=== PATIENT | female | born 1940 | race Caucasian/White ===

== ENCOUNTER 2016-12-04 09:28 | Emergency (ER) | payer MEDICARE, MEDICAID ==
[~2016-12-04] VITALS: Ht 152.4 cm; Wt 55.8 kg
[~2016-12-04 09:28] MED LIST: ADVAIR 250/5028 PUFF IN; AMITRIPTYLINE 225 MG PO; ASPIRIN 81MG TA81 MG PO; ATIVAN GENERIC0.5 MG PO; ATORVASTATIN CA20 M1 PO; CEFDINIR300 MG PO; CIPRO 500MG TA500 MG PO; HYDROCHLOROTH12.5 M1 PO; LEVOTHYROXIN0.075 M1 PO; MEDROL 4MG. DOSE4 MG PO; OMNICEF 300 MG300 MG PO; OXAZEPAM 15MG C15 M1; PREDNISONE 20MG20 MG PO; Zithromax500 MG PO
[2016-12-04] MEDS ORDERED: BISOPROLOL 5MG T5 MG PO (09:37)
[2016-12-04 09:41] LABS: HEMOGLOBIN 13.7 g/dL (12.2-16.2); LYMPH # 2.2 K/mm3 (0.7-4.5); LYMPH % 29.1 % (10-50.0)
--- NOTE | 2016-12-04 10:06 | Emergency Room Report ---
History of Present Illness Time Seen by 09Mynor Presenting Problem in Triage Pt arrived:Walked Presenting Problem:PT REPORTS PAIN UNDER L BREAST THAT BEGAN YESTERDAY, PT STATES PAIN FEELING "SHARP" IN NATURE, PT STATES PAIN RADIATES THROUGH TO BACK. 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 N Clinical Suspician of Infection? N Mental Status: 1 - Regular (Normal Baseline) Sepsis Risk:Low Sepsis Risk Have you (or family members/close friends) recently traveled outside the [place]? N If Yes, where/when: Have you had exposure to infectious disease within the past month? N TB? Other? Specify: Source patient, RN notes reviewed Exam Limitations no limitations Comment Pain under left breast since yesterday while at the [facility]. No trouble breathing and no pain with exertion and no fever or cough Cardiac Chest Pain Chest pain indicative of cardiac No ALLERGIES Coded Allergies: Penicillins (Mild, 04/26/16) oxycodone (Mild, 04/26/16) Home Medications Reported Medications Levothyroxine Sodium (Levothyroxine 0.075MG) 0.05 MG PO DAILY Amitriptyline Hcl (Amitriptyline) 50 MG PO QHS PRN SLEEP FLUTICASONE/SALMETEROL (Advair 250-50 Diskus) 1 PUFF IN BID #60 Hydrochlorothiazide (Hydrochlorothiazide 12.5MG) 12.5 MG PO DAILY #30 Lorazepam (Ativan) 0.5 MG PO BIDP PRN ANXIETY #60 Atorvastatin Calcium 20 MG PO DAILY #30 ASPIRIN (Aspirin) 81 MG PO DAILY BISOPROLOL FUMARATE (Bisoprolol 5MG) 2.5 MG PO DAILY #15 History Medical History General CAD? No Angina: No MS: No Hypertension? Yes Hyperlipidemia? Yes CHF? No DVT? No PE? No COPD? Yes Asthma? No Anemia? No GERD? No Gastric ulcers? No GI Bleed? No Hernia? No Thyroid Problems? No Hypothyroidism? No CVA? Yes Seizures? No Diabetes? No Renal Insuffiency? No End Stage Renal Disease? No UTI? No Stones? No BPH? No GB Disease: No Nephritic Syndrome? No Asplenia? No Hepatitis? No Sickle Cell Disease? No Arthritis? No Migraines? No Cataracts? No Glaucoma? No MRSA? No HIV? No TB? No Anxiety? No Depression? 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 No Results/Orders Laboratory Tests 12/04/16 0943: B-Natriuretic Peptide 19 12/04/16 0930: Sodium 139, Potassium 4.1, Chloride 104, Carbon Dioxide 31, BUN 8, Creatinine 0.8, Estimated Creat Clear 54, Estimated GFR (MDRD) 70, Glucose 97, Calcium 9.2, Total Bilirubin 0.3, AST 19, ALT 22, Alkaline Phosphatase 114, Creatine Kinase 84, CK-MB (CK-2) Rel Index 1.1, CK and CKMB Interp 0.9, Troponin I < 0.02, Total Protein 7.2, Albumin 3.2 L, Globulin 4.0 H, Albumin/Globulin Ratio 0.8 L, D- Dimer 1220 *H, WBC 7.7, RBC 4.48, Hgb 13.7, Hct 40.3, MCV 90.0, RDW 13.1, Plt Count 346, MPV 5.7 L, Gran % 61.3, Gran # 4.7, Lymphocytes % 29.1, Monocytes % 4.5, Eosinophils % 4.5, Basophils % 0.6, Lymphocytes # 2.2, Monocytes # 0.4, Eosinophils # 0.4, Basophils # 0.1, PUBS MCHC 34.0, MCH 30.6 Current Medication Orders Sig/Dynaa Start time Last Medication Dose Route Stop Time Status Admin Enoxaparin Sodium 60 MG ONCE ONE 12/04 1145 AC SC 12/04 1146 Aspirin 0 .STK-MED ONE 12/04 941 DC .ROUTE Aspirin 243 MG ONCE ONE 12/04 0930 DC 12/04 PO 12/04 930 0942 Sodium Chloride 10 ML PRN PRN 12/04 929 AC IV 12/06 927 Orders Procedure Date/time Status D-DIMER 12/04 102 Complete BRAIN NATRIURETIC PEPTIDE 12/04 102 Complete ELECTROCARDIOGRAM REQUEST 12/04 928 Active CHEST(2 VIEWS-NOT PORTABLE) 12/04 928 Active IV SALINE LOCK 12/04 928 Active CBC WITH AUTO DIFF 12/04 928 Complete CARDIAC ENZYMES 12/04 928 Complete CHEM 12 PROFILE 12/04 928 Complete Departure Departure Time of Disposition 1128 Disposition DC/XFER from ER to [facility] Clinical Impression Primary Impression: Pleuritic chest pain Secondary Impressions: COPD (chronic obstructive pulmonary disease) Qualifiers: COPD type: unspecified COPD Qualified Code: J44.9 - Chronic obstructive pulmonary disease, unspecified Dyspnea Qualifiers: Dyspnea type: shortness of breath Qualified Code: R06.02 - Shortness of breath Condition STABLE Referrals Marek GAGE,Jc Hernandez (Family) Additional Instructions Discussed with the ER, Dr. Farooq . He will accept in transfer to rule out PE as we do not have CT availaability today. Discharge Counseling Counseled pt/family regarding diagnosis, test results, follow up needs ED Critical Care Critical Care No If Critical Care minutes are documented, the time involved in the performance of seperately reportable procedures was not counted toward critical care time documented. I directly delivered medical care to this critically ill and/or injured patient. Timely evaluation and treatment was necessary to address the significant organ system(s) dysfunction present in this patient. at 1143
--- NOTE | 2016-12-04 10:06 | Emergency Room Report ---
History of Present Illness Time Seen by 09Mynor Presenting Problem in Triage Pt arrived:Walked Presenting Problem:PT REPORTS PAIN UNDER L BREAST THAT BEGAN YESTERDAY, PT STATES PAIN FEELING "SHARP" IN NATURE, PT STATES PAIN RADIATES THROUGH TO BACK. 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 N Clinical Suspician of Infection? N Mental Status: 1 - Regular (Normal Baseline) Sepsis Risk:Low Sepsis Risk Have you (or family members/close friends) recently traveled outside the [place]? N If Yes, where/when: Have you had exposure to infectious disease within the past month? N TB? Other? Specify: Source patient, RN notes reviewed Exam Limitations no limitations Comment Pain under left breast since yesterday while at the [facility]. No trouble breathing and no pain with exertion and no fever or cough Cardiac Chest Pain Chest pain indicative of cardiac No ALLERGIES Coded Allergies: Penicillins (Mild, 04/26/16) oxycodone (Mild, 04/26/16) Home Medications Reported Medications Levothyroxine Sodium (Levothyroxine 0.075MG) 0.05 MG PO DAILY Amitriptyline Hcl (Amitriptyline) 50 MG PO QHS PRN SLEEP FLUTICASONE/SALMETEROL (Advair 250-50 Diskus) 1 PUFF IN BID #60 Hydrochlorothiazide (Hydrochlorothiazide 12.5MG) 12.5 MG PO DAILY #30 Lorazepam (Ativan) 0.5 MG PO BIDP PRN ANXIETY #60 Atorvastatin Calcium 20 MG PO DAILY #30 ASPIRIN (Aspirin) 81 MG PO DAILY BISOPROLOL FUMARATE (Bisoprolol 5MG) 2.5 MG PO DAILY #15 History Medical History General CAD? No Angina: No [place]: No Hypertension? Yes Hyperlipidemia? Yes CHF? No DVT? No PE? No COPD? Yes Asthma? No Anemia? No GERD? No Gastric ulcers? No GI Bleed? No Hernia? No Thyroid Problems? No Hypothyroidism? No CVA? Yes Seizures? No Diabetes? No Renal Insuffiency? No End Stage Renal Disease? No UTI? No Stones? No BPH? No GB Disease: No Nephritic Syndrome? No Asplenia? No Hepatitis? No Sickle Cell Disease? No Arthritis? No Migraines? No Cataracts? No Glaucoma? No MRSA? No HIV? No TB? No Anxiety? No Depression? 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 No Results/Orders Laboratory Tests 12/04/16 0943: B-Natriuretic Peptide 19 12/04/16 0930: Sodium 139, Potassium 4.1, Chloride 104, Carbon Dioxide 31, BUN 8, Creatinine 0.8, Estimated Creat Clear 54, Estimated GFR (MDRD) 70, Glucose 97, Calcium 9.2, Total Bilirubin 0.3, AST 19, ALT 22, Alkaline Phosphatase 114, Creatine Kinase 84, CK-MB (CK-2) Rel Index 1.1, CK and CKMB Interp 0.9, Troponin I < 0.02, Total Protein 7.2, Albumin 3.2 L, Globulin 4.0 H, Albumin/Globulin Ratio 0.8 L, D- Dimer 1220 *H, WBC 7.7, RBC 4.48, Hgb 13.7, Hct 40.3, MCV 90.0, RDW 13.1, Plt Count 346, MPV 5.7 L, Gran % 61.3, Gran # 4.7, Lymphocytes % 29.1, Monocytes % 4.5, Eosinophils % 4.5, Basophils % 0.6, Lymphocytes # 2.2, Monocytes # 0.4, Eosinophils # 0.4, Basophils # 0.1, PUBS MCHC 34.0, MCH 30.6 Current Medication Orders Sig/Dyana Start time Last Medication Dose Route Stop Time Status Admin Enoxaparin Sodium 60 MG ONCE ONE 12/04 1145 AC SC 12/04 1146 Aspirin 0 .STK-MED ONE 12/04 941 DC .ROUTE Aspirin 243 MG ONCE ONE 12/04 0930 DC 12/04 PO 12/04 930 0942 Sodium Chloride 10 ML PRN PRN 12/04 929 AC IV 12/06 927 Orders Procedure Date/time Status D-DIMER 12/04 102 Complete BRAIN NATRIURETIC PEPTIDE 12/04 102 Complete ELECTROCARDIOGRAM REQUEST 12/04 928 Active CHEST(2 VIEWS-NOT PORTABLE) 12/04 928 Active IV SALINE LOCK 12/04 928 Active CBC WITH AUTO DIFF 12/04 928 Complete CARDIAC ENZYMES 12/04 928 Complete CHEM 12 PROFILE 12/04 928 Complete Departure Departure Time of Disposition 1128 Disposition DC/XFER from ER to [facility] Clinical Impression Primary Impression: Pleuritic chest pain Secondary Impressions: COPD (chronic obstructive pulmonary disease) Qualifiers: COPD type: unspecified COPD Qualified Code: J44.9 - Chronic obstructive pulmonary disease, unspecified Dyspnea Qualifiers: Dyspnea type: shortness of breath Qualified Code: R06.02 - Shortness of breath Condition STABLE Referrals Marek GAGE,Jc Hernandez (Family) Additional Instructions Discussed with the ER, Dr. Farooq . He will accept in transfer to rule out PE as we do not have CT availaability today. Discharge Counseling Counseled pt/family regarding diagnosis, test results, follow up needs ED Critical Care Critical Care No If Critical Care minutes are documented, the time involved in the performance of seperately reportable procedures was not counted toward critical care time documented. I directly delivered medical care to this critically ill and/or injured patient. Timely evaluation and treatment was necessary to address the significant organ system(s) dysfunction present in this patient. at 1143
[2016-12-04 10:10] LABS: BUN 8 mg/dL (7-18)
[2016-12-04 10:11] LABS: GFR (ESTIMATED) 70 ML/MIN (59-)
[2016-12-04 12:52] VITALS: BP 179/62
--- NOTE | 2016-12-04 14:01 | RADIOLOGY REPORT PS360 ---
CHEST(2 VIEWS-NOT PORTABLE) Ordering Physician: Elgin Lerma MD Patient Age: 76 years: Female HISTORY: CHEST PAIN left chest pain since yesterday. Occasional short of breath. TECHNIQUE: PA and lateral chest COMPARISON is made to previous chest film May. FINDINGS :. COPD. Right lung There is subtle ~2 cm new area of density right midlung, just lateral to the right infrahilar region, & projected over the anterior right fifth rib end . (& Posterior eighth rib). With this observation, along with patient's elevated d-dimer 1220, a CTA chest would be warranted to further evaluate. I see patient was transferred [facility] for such since [facility] CT s is down & not available today Again note slight blunting the posterior sulcus on lateral view. Unchanged & reflecting mild chronic pleural changes . Calcified granuloma at medial right lung base stable . Left lung hyperexpanded and clear with stable linear atelectasis towards left base. Heart and mediastinal structures stable. No hilar lesions. IMPRESSION . Vague 2 cm a density just lateral to the right inferior hilar region. Could reflect focal pneumonia . However noting elevated d-dimer along with this feature a CTA chest with be warranted. Patient was transferred for such since [facility] CT s is down & not available today
--- NOTE | 2016-12-04 14:01 | RADIOLOGY REPORT PS360 ---
CHEST(2 VIEWS-NOT PORTABLE) Ordering Physician: Elgin Lerma MD Patient Age: 76 years: Female HISTORY: CHEST PAIN left chest pain since yesterday. Occasional short of breath. TECHNIQUE: PA and lateral chest COMPARISON is made to previous chest film May. FINDINGS :. COPD. Right lung There is subtle ~2 cm new area of density right midlung, just lateral to the right infrahilar region, & projected over the anterior right fifth rib end . (& Posterior eighth rib). With this observation, along with patient's elevated d-dimer 1220, a CTA chest would be warranted to further evaluate. I see patient was transferred [facility] for such since [facility] CT s is down & not available today Again note slight blunting the posterior sulcus on lateral view. Unchanged & reflecting mild chronic pleural changes . Calcified granuloma at medial right lung base stable . Left lung hyperexpanded and clear with stable linear atelectasis towards left base. Heart and mediastinal structures stable. No hilar lesions. IMPRESSION . Vague 2 cm a density just lateral to the right inferior hilar region. Could reflect focal pneumonia . However noting elevated d-dimer along with this feature a CTA chest with be warranted. Patient was transferred for such since [facility] CT s is down & not available today
--- OUTSIDE RECORDS SUMMARY | 2016-12-05 22:21 | External Medical Summary Rpt ---
Author Author , Organization [employer] Address Unknown Phone Unavailable Care Team Providers Care Staff Auditor Name Role Phone [facility] Unavailable Unavailable INC, [facility] BEINEKE SANTI, BEINEKE Unavailable Unavailable SANTI RIVERO ALL, RIVERO ALL Unavailable [facility]available [facility] Unavailable Unavailable [facility], [facility] Unavailable Unavailable [facility] Unavailable Unavailable [facility], [facility] Unavailable Unavailable [facility], [facility] Unavailable Unavailable LAB, [facility] KAILASH TRAVIS, Unavailable Unavailable KAILASH TRAVIS KAILASHLUCIUS ZHANGLAS, Unavailable Unavailable KAILASH, FIDENCIO CAMILO MELBA, CAMILO MELBA Unavailable Unavailable [facility] Unavailable Unavailable [place], [facility] [place] [facility] [place] Un[place] [facility] ECKERLINE JR HANANE, Unavailable Unavailable ECKERLINE JR HANANE ESCOTT EDW, ESCOTT Unavailable Unavailable EDW AMINAH TRUONG, Unavailable Unavailable AMINAH TRUONG [facility] Unavailable Unavailable INC, [facility] Unavailable Unavailable [facility]PITAL P, [facility] BENNETT AMY, BENNETT AMY Unavailable Unavailable BENNETT AMY, BENNETT AMY Unavailable Unavailable [facility], Unavailable Unavailable [facility] Unavailable Unavailable [facility], [facility] Unavailable Unavailable [facility], [facility], [facility] Unavailable Unavailable [facility] CHÁVEZ MARIELLA, CHÁVEZ MARIELLA Unavailable Unavailable DEXTER DWI, DEXTER DWI Unavailable Unavailable DEXTER DWI, DEXTER DWI Unavailable Unavailable DEXTER MARIE, DEXTER Unavailable Unavailable MARIE DEXTER JR DWI, DEXTER Unavailable Unavailable JR DWI DEXTER JR DWI, DEXTER Unavailable Unavailable JR DWI DEXTER, MARIE E, Unavailable Unavailable DEXTER, MARIE E MCKEMIE JR REYNA, Unavailable Unavailable MCKEMIE JR REYNA NICKELS TREY, NICKELS Unavailable Unavailable [facility]AL [facility], Unavailable Unavailable [facility] RASLAU FLA, RASLAU Unavailable Unavailable FLA DIMA CAR, Unavailable Unavailable [facility] Unavailable [facility], [facility] Unavailable Un[facility], [facility] Unavailable Unavailable [facility], [facility] Unavailable Unavailable [facility], [facility] JOSE BREAUX, Unavailable Unavailable JOSE BREAUX [facility], Unavailable Unavailable [facility] Unavailable Unavailable [facility], Unavailable Unavailable [facility] Purpose Continuity of Care Document - 09-15-2007 through 2016 Problems Code Diagnosis DOS Provider Status J449 CHRONIC 09-13-2016 [facility] [place] OBSTRU[facility]IVE [place] PULMONARY MEDICAL DISEASE UNS EQUIPME E039 HYPOTHYROID 05-25-2016 [facility] P I10 ESSENTIAL 05-25-2016 [facility]YPERT[facility]O [facility] N R079 CHEST PAIN 05-25-2016 [facility] UNSPECIFIED [facility]ICAL IM[facility]ING ASS [id number] LACERATION 04-26-2016 [facility] BODY RT INC FOREARM INITIAL [id number] APHASIA 01-23-2016 [facility] CEREBRAL INFARCTION [id number] DYSPHASIA 01-23-2016 [facility] CEREBRAL INFARCTION R201 HYPOESTHESI 01-23-2016 [facility] Z09 ENC F/U 01-23-2016 [facility] CMPL TX OTH THAN MALIG NEOPLSM [id number] CELLULITIS 12-24-2015 [facility] I361 NONRHEUMATI 12-16-2015 [facility] TRICUSPID SERV [facility]VE [facility] INSUFFICIEN CY R1310 DYSPHAGIA 12-16-2015 [facility] G8191 HEMIPLEGIA 12-15-2015 [facility] AMBULANCE AFFECTING SERVICE RIGHT DOMINANT SIDE I493 VENTRICULAR 12-15-2015 [facility] PREMATURE [facility] DEPOLARIZAT [facility]OUNDATION ION [id number] CEREBRAL 12-15-2015 [facility] IN[facility]ARCT D/T SERV THROMB LT [facility]OUNDATION MID CEREBRAL ART I639 CEREBRAL 12-15-2015 [facility] INFARCTION SERV UNSPECIFIED FOUNDATION 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 [facility] AND 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 OCCLUSION & 12-15-2015 [facility] ST[facility] SERV UNSPECIFIED FOUNDATION CAROTID ARTERY I6602 OCCLUSION & 12-15-2015 [place] [facility] LEFT MIDDLE [facility] CEREBRAL ARTERY I671 CEREBRAL 12-15-2015 [place] [facility] ANEURYSM SERV NONRUPTURED [facility] I6931 COGNITIVE 12-15-2015 [facility] DEF[facility]ITS [facility] FOLLOWING SERVICE CEREBRAL INFARCTION J349 UNSPECIFIED 12-15-2015 [facility] DISORDER SERV OF NOSE AND FOUNDATION NASAL SINUSES R200 ANESTHESIA 12-15-2015 [facility] OF SKIN MEDICAL IMAGING ASS [id number] FACIAL 12-15-2015 [facility] R4701 APHASIA 12-15-2015 [facility] R479 UNSPECIFIED 12-15-2015 [facility] SPEECH SERV DISTURBANCE [facility] S R531 WEAKNESS 12-15-2015 [facility] Z720 TOBACCO USE 12-15-2015 [facility] J209 ACUTE 08-11-2015 [facility] BRONCHITIS MARIE UNSPECIFIED Z6822 BODY MASS 08-11-2015 [facility] INDEX BMI MARIE 22.0-22.9 ADULT J441 CHRONIC 07-25-2015 [facility] OBSTRUCTIVE MARIE PULMONARY DZ W/EXACERBAT ION J440 COPD WITH 07-21-2015 [facility] RESPIRATORY INFECTION R05 COUGH 07-21-2015 [facility] [id number] UNS FX 05-27-2015 [facility] LOWER RT MEDICAL RADIUS IMAGING ASS SUBSQT ENC CLOS FX RTN [id number] OTH 05-27-2015 [facility]TRAARTIC [facility] FX LOW RT INC RADIUS SUB CLOS RTN E785 HYPERLIPIDE 05-19-2015 [facility] SUINTA MARIE UNSPECIFIED G609 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 NEUROPATHY UNSPECIFIED I2781 COR 05-19-2015 [facility] PULMONALE MARIE CHRONIC Z23 ENCOUNTER 05-19-2015 [facility] FOR MARIE IMMUNIZATIO N Z6823 BODY MASS 05-19-2015 [facility] INDEX BMI MARIE 23.0-23.9 ADULT V5412 AFTERCARE 04-25-2015 [facility] TRAUMATIC INC FRACTURE LOWER ARM V5419 AFTERCARE 04-25-2015 [facility] TRAUMATIC IMAGING [facility] FRACTURE OTHER BONE 4660 ACUTE 04-18-2015 [facility] BRONCHITIS MARIE 73587 OBSTRUCTIVE 04-18-2015 [facility] CHRONIC MARIE BRONCHITIS WITH EXACERBATIO N 69765 FEVER 04-18-2015 [facility] UNSPECIFIED MEDICAL IMAGING ASS V851 BODY MASS 04-18-2015 [facility] INDEX MARIE BETWEEN 19-24 ADULT 65604 PAIN IN 03-20-2015 [facility] JOINT, MEDICAL FOREARM IMAGING ASS 496 CHRONIC 01-17-2015 [facility] OBSTRUCTION MEDICAL NEC EQUIPME 4019 UNSPECIFIED 11-27-2014 [place] [facility] HYPERTENSIO [facility] N 91147 OTHER 11-27-2014 [place] [facility] SPECIF[facility] SERV CARDIAC [facility] DYSRHYTHMIA S 1844 MALIGNANT 10-25-2014 [facility] NEOPLASM OF [facility] VULVA UNSPECIFIED SITE 7213 LUMBOSACRAL 08-16-2014 [facility] SPONDYLOSIS IMAGING ASS WITHOUT MYELOPATHY 7242 LUMBAGO 08-16-2014 D[facility]TER MARIE 7384 ACQUIRED 08-16-2014 [facility] SPONDYLOLIS [facility]ICAL THESIS IMAGING ASS 8472 LUMBAR 08-16-2014 [facility] SPRAIN AND MARIE STRAIN V8522 BODY MASS 08-16-2014 [facility] INDEX MARIE 26.0-26.9 ADULT 4169 UNSPECIFIED 02-26-2014 D[facility]TER JR CHRONIC DWI PULMONARY HEART DISEASE 18215 HEMATOMA 10-31-2013 D[facility]TER JR COMPLICATIN DWI G A PROCEDURE NEC 460 ACUTE 07-10-2013 DEXTER JR NASOPHARYNG DWI ITIS 7823 EDEMA 01-26-2012 APRIL JR REYNA 2449 UNSPECIFIED 01-24-2012 D[facility] JR DWI HYPOTHYROID ISM 486 PNEUMONIA, 11-12-2011 [facility] UNSPECIFIED INC 83270 OTHER 11-12-2011 [facility] DISEASES OF MEDICAL LUNG NOT IMAGING ASS ELSEWHERE CLASSIFIED 5180 PULMONARY 2011 [facility] COLLAPSE [facility] 5183 PULMONARY 2011 [facility] EOSINOPHILI MEDICAL A IMAGING ASS 5110 PLEURISY 07-26-2011 [facility] WITHOUT [facility] MENTION INC EFFUS/CURRE NT TB V0481 NEED 04-20-2011 D[facility]TER DWI PROPHYLACTI C VACCINATION &INOCULATIO N FLU 52582 ABDOMINAL 12-19-2010 [facility] PAIN, MEDICAL UNSPECIFIED IMAGING ASS SITE 58791 OTHER 12-14-2010 D[facility]TER DWI CHRONIC OTITIS EXTERNA 2767 HYPERPOTASS 09-03-2010 [facility] INC 684 IMPETIGO 08-21-2010 D[facility] DWI 5990 URINARY 07-17-2010 [facility] DWI TRACT INFECTION SITE NOT SPECIFIED 69925 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 UNSPECIFIED 7840 HEADACHE 05-06-2010 [facility] 2724 OTHER AND 03-02-2010 D[facility] DWI UNSPECIFIED HYPERLIPIDE SUNITA 3569 UNSPEC 03-02-2010 D[facility] DWI HEREDIT&IDI OPATHIC PERIPHERAL NEUROPATHY 52810 OTHER 03-02-2010 D[facility] DWI SPECIFIED CIRCULATORY SYSTEM DISORDERS V5869 LONG-TERM 03-02-2010 [facility]CURRENT[facility] USE OF [place] OTHER MEDICATIONS 65329 CRAMP OF 02-24-2010 DEXTER, LIMB MARIE E 55176 SHORTNESS 11-21-2009 [facility] 99873 OTHER 11-21-2009 [facility] DYSPNEA AND [facility] [place] [address] ACUT 10-03-2009 DEXTER, SUPPRATV MARIE E OTITIS MEDIA W/O SPONT RUP EARDRUM 4610 ACUTE 10-03-2009 DEXTER, MAXILLARY MARIE E SINUSITIS 6961 OTHER 12-24-2008 [facility] DISORDERS 6983 LICHENIFICA 12-24-2008 [facility] PSC SIMPLEX CHRONICUS 6272 SYMPTOMATIC 10-29-2008 DEXTER, MARIE E MENOPAUSAL/ FEMALE CLIMACTERIC STATES V1589 OTH SPEC 10-29-2008 [facility] P[facility] HX [facility] PRESENTING INC HAZARDS HEALTH OTH V762 SCREENING 10-29-2008 [facility] FOR [facility] MALIGNANT INC NEOPLASM OF THE CERVIX V812 SCREENING 10-29-2008 DEXTER, OTHER&UNSPE MARIE E C CARDIOVASCU LAR CONDITIONS 16994 UNSPECIFIED 10-01-2008 DEXTER, INFECTIVE MARIE E OTITIS EXTERNA 7856 ENLARGEMENT 07-17-2008 DEXTER, OF LYMPH MARIE E NODES 46681 UNSPECIFIED 03-01-2008 DEXTER, GANGLION MARIE E J44.9 CHRONIC OBSTRUCTIVE PULMONARY DISEASE, UNSPECIFIED R06.00 DYSPNEA, UNSPECIFIED R07.81 PLEURODYNIA Medications Na ND Rx Da Fi Fi Am Da Di Ph RX Ph St me C No te ll ll ou ys ag ar # ys at rm s nt no ma ic us Or Da si cy ia de te s n re d OX 00 05 10 5 12 30 EA 22 LE Ac [place] 78 -0 -[address] 45 WI ti EP 12 9- 8- 00 SI 54 S ve AM 81 20 20 0 DE JR 00 11 11 15 1 PH DW AR IG MG MA HT CY E CA PS OF UL E CY NT HI AN A OX 00 05 09 5 12 30 EA 22 LE Ac [place] 78 -0 -[address] 45 WI ti EP 12 9- 6- 00 SI 54 S ve AM 81 20 20 0 DE JR 00 11 11 15 1 PH DW AR IG MG MA HT CY E CA PS OF UL E CY NT HI AN A OX 00 05 08 5 12 30 EA 22 LE Ac [place] 78 -0 -[address] 45 WI ti EP 12 9- 4- 00 SI 54 S ve AM 81 20 20 0 DE JR 00 11 11 15 1 PH DW AR IG MG MA HT CY E CA PS OF UL E CY NT HI AN A OX 00 05 07 5 12 30 EA 22 LE Ac [place] 78 -0 -[address] 45 WI ti EP 12 9- 2- 00 SI 54 S ve AM 81 20 20 0 DE JR 00 11 11 15 1 PH DW AR IG MG MA HT CY E CA PS OF UL E CY NT HI AN A OX 00 05 06 5 12 30 EA 22 LE Ac [place] 78 -0 -[address] 45 WI ti EP 12 9- 0- 00 SI 54 S ve AM 81 20 20 0 DE JR 00 11 11 15 1 PH DW AR IG MG MA HT CY E CA PS OF UL E CY NT HI AN A OX 00 05 05 5 12 30 EA 22 LE Ac [place] 78 -0 -[address] 45 WI ti EP 12 9- 9- 00 SI 54 S ve AM 81 20 20 0 DE JR 00 11 11 15 1 PH DW AR IG MG MA HT CY E CA PS OF UL E CY NT HI AN A OX 00 02 05 5 60 15 EA 21 LE Ac [place] 78 -0 -[address] 10 WI ti EP 12 4- 2- 00 SI 01 S ve AM 81 20 20 DE JR 00 11 11 15 1 PH DW AR IG MG MA HT CY E CA PS OF UL E CY NT HI AN A OX 00 02 04 5 60 15 EA 21 LE Ac [place] 78 -0 -[address] 10 WI ti EP 12 4- 4- 00 SI 01 S ve AM 81 20 20 DE JR 00 11 11 15 1 PH DW AR IG MG MA HT CY E CA PS OF UL E CY NT HI AN A OX 00 02 03 5 60 15 EA 21 LE Ac [place] 78 -0 -[address] 10 WI ti EP 12 4- 8- 00 SI 01 S ve AM 81 20 20 DE JR 00 11 11 15 1 PH DW AR IG MG MA HT CY E CA PS OF UL E CY NT HI AN A OX 00 02 03 5 60 15 EA 21 LE Ac [place] 78 -0 -[address] 10 WI ti EP 12 4- 0- 00 SI 01 S ve AM 81 20 20 DE JR 00 11 11 15 1 PH DW AR IG MG MA HT CY E CA PS OF UL E CY NT HI AN A OX 00 02 02 5 60 15 EA 21 LE Ac [place] 78 -0 -[address] 10 WI ti EP 12 SI 01 S ve AM 81 20 20 DE JR 00 11 11 15 1 PH DW AR IG MG MA HT CY E CA PS OF UL E CY NT HI AN A OX 00 02 02 5 60 15 EA 21 LE Ac [place] 78 -0 -[address] 10 WI ti EP 12 SI 01 S ve AM 81 20 20 DE JR 00 11 11 15 1 PH DW AR IG MG MA HT CY E CA PS OF UL E CY NT HI AN A OX 00 10 01 5 60 15 EA 19 LE Ac [place] 78 -1 -[address] 59 WI ti EP 12 SI 70 S ve AM 81 20 20 DE JR 00 10 11 15 1 [address] DW AR IG MG MA HT CY E CA PS OF UL E CY NT HI AN A OX 00 10 12 5 60 15 EA 19 LE Ac [place] 78 -1 -[address] 59 WI ti EP 12 SI 70 S ve AM 81 20 20 DE JR 00 10 10 15 [address] AR IG MG MA HT CY E CA PS OF UL E CY NT HI AN A OX 00 10 12 5 60 15 EA 19 LE Ac [place] 78 -1 -[address] 59 WI ti EP 12 SI 70 S ve AM 81 20 20 DE JR 00 10 10 15 1 PH DW AR IG MG MA HT CY E CA PS OF UL E CY NT HI AN A OX 00 10 11 5 60 15 EA 19 LE Ac [place] 78 -1 -[address] 59 WI ti EP 12 SI 70 S ve AM 81 20 20 DE JR 00 10 10 15 1 PH DW AR IG MG MA HT CY E CA PS OF UL E CY NT HI AN A OX 00 10 11 5 60 15 EA 19 LE Ac [place] 78 -1 -[address] 59 WI ti EP 12 9- 0- 00 SI 70 S ve AM 81 20 20 DE JR 00 10 10 15 1 PH DW AR IG MG MA HT CY E CA PS OF UL E CY NT HI AN A OX 00 10 10 5 60 15 EA 19 LE Ac [place] 78 -1 -[address] 59 WI ti EP 12 9- 9- 00 SI 70 S ve AM 81 20 20 DE JR 00 10 10 15 1 PH DW AR IG MG MA HT CY E CA PS OF UL E CY NT HI AN A OX 00 07 09 5 60 15 EA 18 LE Ac [place] 78 -0 -[address] 23 WI ti EP 12 6- 0- 00 SI 27 S ve AM 81 20 20 DE JR 00 10 10 15 1 PH DW AR IG MG MA HT CY E CA PS OF UL E CY NT HI AN A OX 00 07 09 5 60 15 EA 18 LE Ac [place] 78 -0 -[address] 23 WI ti EP 12 6- 4- 00 SI 27 S ve AM 81 20 20 DE JR 00 10 10 15 1 PH DW AR IG MG MA HT CY E CA PS OF UL E CY NT HI AN A OX 00 07 08 5 60 15 EA 18 LE Ac [place] 78 -0 -[address] 23 WI ti EP 12 6- 6- 00 SI 27 S ve AM 81 20 20 DE JR 00 10 10 15 1 PH DW AR IG MG MA HT CY E CA PS OF UL E CY NT HI AN A OX 00 07 08 5 60 15 EA 18 LE Ac [place] 78 -0 -[address] 23 WI ti EP 12 6- 0- 00 SI 27 S ve AM 81 20 20 DE JR 00 10 10 15 1 PH DW AR IG MG MA HT CY E CA PS OF UL E CY NT HI AN A OX 00 07 07 5 60 15 EA 18 LE Ac [place] 78 -0 -[address] 23 WI ti EP 12 6- 4- 00 SI 27 S ve AM 81 20 20 DE JR 00 10 10 15 1 PH DW AR IG MG MA HT CY E CA PS OF UL E CY NT HI AN A OX 00 07 07 5 60 15 EA 18 LE Ac [place] 78 -0 -[address] 23 WI ti EP 12 6- 6- 00 SI 27 S ve AM 81 20 20 DE JR 00 10 10 15 1 PH DW AR IG MG MA HT CY E CA PS OF UL E CY NT HI AN A OX 00 03 06 5 60 15 EA 16 LE Ac [place] 78 -1 -[address] 78 WI ti EP 12 5- 7- 00 SI 09 S ve AM 81 20 20 DE JR 00 10 10 15 1 PH DW AR IG MG MA HT CY E CA PS OF UL E CY NT HI AN A OX 00 03 06 5 60 15 EA 16 LE Ac [place] 78 -1 -[address] 78 WI ti EP 12 5- 2- 00 SI 09 S ve AM 81 20 20 DE JR 00 10 10 15 1 PH DW AR IG MG MA HT CY E CA PS OF UL E CY NT HI AN A OX 00 03 05 5 60 15 EA 16 LE Ac [place] 78 -1 -[address] 78 WI ti EP 12 5- 3- 00 SI 09 S ve AM 81 20 20 DE JR 00 10 10 15 1 PH DW AR IG MG MA HT CY E CA PS OF UL E CY NT HI AN A OX 00 03 04 5 60 15 EA 16 LE Ac [place] 78 -1 -[address] 78 WI ti EP 12 5- 7- 00 SI 09 S ve AM 81 20 20 DE JR 00 10 10 15 1 PH DW AR IG MG MA HT CY E CA PS OF UL E CY NT HI AN A OX 00 03 04 5 60 15 EA 16 LE Ac [place] 78 -1 -[address] 78 WI ti EP 12 5- 7- 00 SI 09 S ve AM 81 20 20 DE JR 00 10 10 15 1 PH DW AR IG MG MA HT CY E CA PS OF UL E CY NT HI AN A OX 00 03 03 5 60 15 EA 16 LE Ac [place] 78 -1 -[address] 78 WI ti EP 12 5- 5- 00 SI 09 S ve AM 81 20 20 DE JR 00 10 10 15 1 PH DW AR IG MG MA HT CY E CA PS OF UL E CY NT HI AN A OX 00 12 02 04 60 15 EA 15 LE Ac [place] 78 -0 -[address] 39 WI ti EP 12 2- 6- 00 SI 10 S ve AM 81 20 20 DE JR 00 09 10 15 1 PH DW AR IG MG MA HT CY E CA PS OF UL CY E NT HI AN A OX 00 12 02 03 60 15 EA 15 LE Ac [place] 78 -0 -[address] 39 WI ti EP 12 2- 1- 00 SI 10 S ve AM 81 20 20 DE JR 00 09 10 15 1 PH DW AR IG MG MA HT CY E CA PS OF UL CY E NT HI AN A OX 00 12 01 02 60 15 EA 15 LE Ac [place] 78 -0 -[address] 39 WI ti EP 12 2- 4- 00 SI 10 S ve AM 81 20 20 DE JR 00 09 10 15 1 PH DW AR IG MG MA HT CY E CA PS OF UL CY E NT HI AN A OX 00 12 12 01 60 15 EA 15 LE Ac [place] 78 -0 -[address] 39 WI ti EP 12 2- 1- 00 SI 10 S ve AM 81 20 20 DE JR 00 09 09 15 1 PH DW AR IG MG MA HT CY E CA PS OF UL CY E NT HI AN A OX 00 12 12 00 60 15 EA 15 LE Ac [place] 78 -0 -[address] 39 WI ti EP 12 2- 7- 00 SI 10 S ve AM 81 20 20 DE JR 00 09 09 15 1 PH DW AR IG MG MA HT CY E CA PS OF UL CY E NT HI AN A OX 00 08 12 05 60 15 EA 13 LE Ac [place] 78 -1 -[address] 84 WI ti EP 12 4- 3- 00 SI 23 S ve AM 81 20 20 DE JR 00 09 09 15 1 PH DW AR IG MG MA HT CY E CA PS OF UL CY E NT HI AN A OX 00 08 11 04 60 15 EA 13 LE Ac [place] 78 -1 -[address] 84 WI ti EP 12 4- 5- 00 SI 23 S ve AM 81 20 20 DE JR 00 09 09 15 1 PH DW AR IG MG MA HT CY E CA PS OF UL CY E NT HI AN A OX 00 08 10 03 60 15 EA 13 LE Ac [place] 78 -1 -[address] 84 WI ti EP 12 4- 2- 00 SI 23 S ve AM 81 20 20 DE JR 00 09 09 15 1 PH DW AR IG MG MA HT CY E CA PS OF UL CY E NT HI AN A OX 00 08 10 02 60 15 EA 13 LE Ac [place] 78 -1 -[address] 84 WI ti EP 12 4- 8- 00 SI 23 S ve AM 81 20 20 DE JR 00 09 09 15 1 PH DW AR IG MG MA HT CY E CA PS OF UL CY E NT HI AN A HY 00 09 10 00 12 4 EA [address] 47 -2 -[address] 41 WI ti OM 21 5- 8- 00 SI 88 S ve ET 03 20 20 0 DE JR 01 09 09 SY 6 PH DW RU AR IG P MA HT CY E OF CY NT HI AN A OX 00 08 09 01 60 15 EA 13 LE Ac [place] 78 -1 -[address] 84 WI ti EP 12 4- 4- 00 SI 23 S ve AM 81 20 20 DE JR 00 09 09 15 1 PH DW AR IG MG MA HT CY E CA PS OF UL CY E NT HI AN A OX 00 08 08 00 60 15 EA 13 LE Ac [place] 78 -1 -[address] 84 WI ti EP 12 4- 7- 00 SI 23 S ve AM 81 20 20 DE JR 00 09 09 15 1 PH DW AR IG MG MA HT CY E CA PS OF UL CY E NT HI AN A OX 00 05 08 05 60 15 EA 12 LE Ac [place] 78 -0 -[address] 61 WI ti EP 12 5- 3- 00 SI 62 S ve AM 81 20 20 DE JR 00 09 09 15 1 PH DW AR IG MG MA HT CY E CA PS OF UL CY E NT HI AN A OX 00 05 07 04 60 15 EA 12 LE Ac [place] 78 -0 -[address] 61 WI ti EP 12 5- 0- 00 SI 62 S ve AM 81 20 20 DE JR 00 09 09 15 1 PH DW AR IG MG MA HT CY E CA PS OF UL CY E NT HI AN A OX 00 05 07 03 60 15 EA 12 LE Ac [place] 78 -0 -[address] 61 WI ti EP 12 5- 2- 00 SI 62 S ve AM 81 20 20 DE JR 00 09 09 15 1 PH DW AR IG MG MA HT CY E CA PS OF UL CY E NT HI AN A OX 00 05 06 02 60 15 EA 12 LE Ac [place] 78 -0 -[address] 61 WI ti EP 12 5- 8- 00 SI 62 S ve AM 81 20 20 DE JR 00 09 09 15 1 PH DW AR IG MG MA HT CY E CA PS OF UL CY E NT HI AN A OX 00 05 06 01 60 15 EA 12 LE Ac [place] 78 -0 -[address] 61 WI ti EP 12 5- 4- 00 SI 62 S ve AM 81 20 20 DE JR 00 09 09 15 1 PH DW AR IG MG MA HT CY E CA PS OF UL CY E NT HI AN A OX 00 05 05 00 60 15 EA 12 LE Ac [place] 78 -0 -[address] 61 WI ti EP 12 5- 1- 00 SI 62 S ve AM 81 20 20 DE JR 00 09 09 15 1 PH DW AR IG MG MA HT CY E CA PS OF UL CY E NT HI AN A OX 00 03 04 02 60 15 EA 11 LE Ac [place] 78 -0 -[address] 77 WI ti EP 12 6- 3- 00 SI 38 S ve AM 81 20 20 DE JR 00 09 09 15 1 PH DW AR IG MG MA HT CY E CA PS OF UL CY E NT HI AN A OX 00 03 04 01 60 15 EA 11 LE Ac [place] 78 -0 -[address] 77 WI ti EP 12 6- 9- 00 SI 38 S ve AM 81 20 20 DE JR 00 09 09 15 1 PH DW AR IG MG MA HT CY E CA PS OF UL CY E NT HI AN A TU 61 03 03 00 25 6 EA 11 LE Ac SS 57 -0 -[address] 71 WI ti IG 00 3- 2- 00 SI 38 S ve ON 08 20 20 DE JR 10 09 09 5- [address] 1. AR IG 5 MA HT MG CY E TA OF BL CY ET NT HI AN A OX 00 03 03 00 60 15 EA 11 LE Ac [place] 78 -0 -[address] 77 WI ti EP 12 6- 2- 00 SI 38 S ve AM 81 20 20 DE JR 00 09 09 15 1 PH DW AR IG MG MA HT CY E CA PS OF UL CY E NT HI AN A OX 00 02 02 60 15 EA 11 LE Ac [place] 78 -1 -[address] 04 WI ti EP 12 2- 6- 00 SI 94 S ve AM 81 20 20 DE JR 00 09 09 15 1 PH DW AR IG MG MA HT CY E CA PS OF UL CY E NT HI AN A OX 00 02 01 60 15 EA 11 LE Ac [place] 78 -1 -[address] 04 WI ti EP 12 2- 2- 00 SI 94 S ve AM 81 20 20 DE JR 00 09 09 15 1 PH DW AR IG MG MA HT CY E CA PS OF UL CY E NT HI AN A OX 00 01 01 00 60 15 EA 11 LE Ac [place] 78 -1 -[address] 04 WI ti EP 12 2- 0- 00 SI 94 S ve AM 81 20 20 DE JR 00 09 09 15 1 PH DW AR IG MG MA HT CY E CA PS OF UL CY E NT HI AN A OX 00 11 01 02 60 15 EA 10 LE Ac [place] 78 -1 -[address] 33 WI ti EP 12 9- 1- 00 SI 76 S ve AM 81 20 20 DE JR 00 08 09 15 1 PH DW AR IG MG MA HT CY E CA PS OF UL CY E NT HI AN A OX 00 11 12 01 60 15 EA 10 LE Ac [place] 78 -1 -[address] 33 WI ti EP 12 SI 76 S ve AM 81 20 20 DE JR 00 08 08 15 1 PH DW AR IG MG MA HT CY E CA PS OF UL CY E NT HI AN A OX 00 11 12 00 60 15 EA 10 LE Ac AZ 78 -1 -[address] 33 WI ti EP 12 SI 76 S ve AM 81 20 20 DE JR 00 08 08 15 1 PH DW AR IG MG MA HT CY E CA PS OF UL CY E NT HI AN A OX 00 09 11 02 60 15 EA 99 LE Ac AZ 78 -2 -[address] 58 WI ti EP 12 SI 87 S ve AM 81 20 20 DE JR 00 08 08 15 1 PH DW AR IG MG MA HT CY E CA PS OF UL CY E NT HI AN A OX 00 09 10 01 60 15 EA 99 No Ac AZ 78 -2 -[address] 58 t ti EP 12 SI 87 Av ve AM 81 20 20 DE ai 00 08 08 la 15 1 PH bl AR e MG MA CY CA PS OF UL CY E NT HI AN A OX 00 09 10 00 60 15 EA 99 No Ac AZ 78 -2 -[address] 58 t ti EP 12 SI 87 Av ve AM 81 20 20 DE ai 00 08 08 la 15 1 PH bl AR e MG MA CY CA PS OF UL CY E NT HI AN A OX 00 09 09 00 60 20 EA 99 No Ac AZ 78 -0 -[address] 30 t ti EP 12 SI 27 Av ve AM 81 20 20 DE ai 00 08 08 la 15 1 PH bl AR e MG MA CY CA PS OF UL CY E NT HI AN A OX 00 07 08 02 30 10 EA 98 No Ac AZ 78 -2 -[address] 83 t ti EP 12 SI 70 Av ve AM 81 20 20 DE ai 00 08 08 la 15 1 PH bl AR e MG MA CY CA PS OF UL CY E NT HI AN A OX 00 07 08 01 30 10 EA 98 No Ac AZ 78 -2 -[address] 83 t ti EP 12 SI 70 Av ve AM 81 20 20 DE ai 00 08 08 la 15 1 PH bl AR e MG MA CY CA PS OF UL CY E NT HI AN A OX 00 07 08 00 30 10 EA 98 No Ac AZ 78 -2 -[address] 83 t ti EP 12 SI 70 Av ve AM 81 20 20 DE ai 00 08 08 la 15 1 PH bl AR e MG MA CY CA PS OF UL CY E NT HI AN A OX 00 06 07 02 60 15 EA 98 No Ac AZ 78 -0 -[address] 21 t ti EP 12 SI 03 Av ve AM 81 20 20 DE ai 00 08 08 la 15 1 PH bl AR e MG MA CY CA PS OF UL CY E NT HI AN A OX 00 06 07 01 60 15 EA 98 No Ac AZ 78 -0 -[address] 21 t ti EP 12 SI 03 Av ve AM 81 20 20 DE ai 00 08 08 la 15 1 PH bl AR e MG MA CY CA PS OF UL CY E NT HI AN A OX 00 06 06 00 60 15 EA 98 No Ac [place] 78 -0 -[address] 21 t ti EP 12 SI 03 Av ve AM 81 20 20 DE ai 00 08 08 la 15 1 PH bl AR e MG MA CY CA PS OF UL CY E NT HI AN A OX 00 04 05 02 60 15 EA 97 No Ac [place] 78 -0 -[address] 51 t ti EP 12 SI 86 Av ve AM 81 20 20 DE ai 00 08 08 la 15 1 PH bl AR e MG MA CY CA PS OF UL CY E NT HI AN A OX 00 04 05 01 60 15 EA 97 No Ac [place] 78 -0 -[address] 51 t ti EP 12 SI 86 Av ve AM 81 20 20 DE ai 00 08 08 la 15 1 PH bl AR e MG MA CY CA PS OF UL CY E NT HI AN A OX 00 04 04 00 60 15 EA 97 No Ac [place] 78 -0 -[address] 51 t ti EP 12 SI 86 Av ve AM 81 20 20 DE ai 00 08 08 la 15 1 PH bl AR e MG MA CY CA PS OF UL CY E NT HI AN A OX 00 12 04 05 60 15 EA 95 No Ac [place] 78 -1 -[address] 97 t ti EP 12 SI 55 Av ve AM 81 20 20 DE ai 00 07 08 la 15 1 PH bl AR e MG MA CY CA PS OF UL CY E NT HI AN A OX 00 12 04 04 60 15 EA 95 No Ac [place] 78 -1 -[address] 97 t ti EP 12 6 7 00 SI 55 Av ve AM 81 20 20 DE ai 00 07 08 la 15 1 PH bl AR e MG MA CY CA PS OF UL CY E NT HI AN A 10 02 03 00 12 3 EA 96 No Ac 91 -1 -[address] 85 t ti 40 8- 6- 00 SI 15 Av ve 98 20 20 0 DE ai 01 08 08 la 6 PH bl AR e MA CY OF CY NT HI AN A OX 00 12 03 03 60 15 EA 95 No Ac [place] 78 -1 -[address] 97 t ti EP 12 6 SI 55 Av ve AM 81 20 20 DE ai 00 07 08 la 15 1 PH bl AR e MG MA CY CA PS OF UL CY E NT HI AN A OX 00 12 03 02 60 15 EA 95 No Ac [place] 78 -1 -[address] 97 t ti EP 12 SI 55 Av ve AM 81 20 20 DE ai 00 07 08 la 15 1 PH bl AR e MG MA CY CA PS OF UL CY E NT HI AN A Immunization Name Date Route CVX Reacti Commen Provid Is Given on t er Refuse d IIV DEXTER No VACCIN 2010 [facility] E PRESER V FREE INCREA SED AG CONTEN T IM IIV3 DEXTER No VACCIN 2009 [facility]I E SPLIT VIRUS 0.5 ML DOSAGE IM USE IIV3 DEXTER, No VACCIN 2008 E MARIE SPLIT E VIRUS 0.5 ML DOSAGE IM USE IIV3 DEXTER, No VACCIN 2007 E MARIE SPLIT E VIRUS 0.5 ML DOSAGE IM USE Procedures Procedure DOS Code Location Performer Comment O2 CONC 1 E1390 [facility] 7 HOME HOME 85%/>02 MEDICAL MEDICAL CONC AT EQUIPME EQUIPME [facility] [place] [id number] D[facility] TROPONIN [facility] [place] [address] D[facility] THYROID 6 [facility] STIMULATI [facility] INC NG HORMONE TSH RADIOLOGI [address] [place]AIL[place] EXAM 6 MEDICAL TRAVIS CHEST 2 IMAGING VIEWS ASS FRONTAL&L ATERAL ECG 36597 DAR RENTERIA JR ROUTINE 6 [facility] W/LEAST P 12 LDS I&R ONLY COLLECTIO 98311 D[facility] DODGE N VENOUS 6 [facility] BLOOD INC INC VENIPUNCT URE ECG 28245 D[facility] DODGE ROUTINE 6 [facility] ECG INC INC W/LEAST 12 LDS TRCG ONLY W/O I&R BASIC 34848 DAR DODGE METABOLIC 6 [facility] PANEL INC INC CALCIUM TOTAL SIMPLE 99077 DAR DODGE REPAIR 6 [facility] SCALP/NEC INC INC K/AX/KARINA T/TRUNK 2.5CM/< HOSPITAL G0463 [facility] 6 Y Y T [facility] HOSPITAL VISIT ASSESS & MGMT PT ECHO 51610 MALAIKA CHÁVEZ MARIELLA TTHRC R-T 6 MEDICAL 2D SERV W/WOM-MOD FOUNDATIO E COMPL N SPEC&COLR D SWALLOWIN 92395 [facility] 6 Y OF CAR W/CINERAD [place] IOGRAPY/V HOSPI IDRADIOG SBSQ 77904 [place] [address] MEDICAL JR LUT CARE/DAY SERV 25 FOUNDATIO MINUTES N INITIAL 67498 [place] [address] MEDICAL JR LUT CARE/DAY SERV [address] [place] [address] DAR DODGE HEAD/BRAI 6 [facility] N W/O INC INC CONTRAST MATERIAL MRI BRAIN 84182 MALAIKA RASLAU BRAIN 6 MEDICAL FLA STEM W/O SERV CONTRAST FOUNDATIO MATERIAL N RADIOLOGI 41443 [place] NICKELS C 6 MEDICAL TREY EXAMINATI SERV ON CHEST FOUNDATIO SINGLE N VIEW FRONTAL CREATINE 52090 DAR DODGE KINASE MB 6 [facility] FRACTION INC INC ONLY COMPREHEN 27152 D[facility] DODGE SIVE 6 [facility] METABOLIC INC INC PANEL BLOOD 22348 DAR DODGE COUNT 6 [facility] COMPLETE INC INC AUTO&[place] [address] MALAIKA ESCOTT ANGIOGRAP 6 MEDICAL EDW HY HEAD SERV W/CONTRAS FOUNDATIO T/[place] [address] DAR DODGE TROPONIN 6 [facility] QUANTITAT INC INC CY GROUND A0425 [facility]LE[facility] 6 AMBULANCE AMBULANCE PER SERVICE SERVICE STATUTE MILE AMBULANCE A0428 [facility] SERVICE 6 AMBULANCE AMBULANCE BLS SERVICE SERVICE NONEMERGE NCY TRANSPORT PROTHROMB 87212 DAR DODGE IN TIME 6 [facility] INC INC CREATINE 67802 DAR DODGE KINASE 6 [facility] TOTAL INC INC ECG 78899 MALAIKA BRETT CHI ROUTINE 6 MEDICAL ECG SERV W/LEAST FOUNDATIO 12 LDS N I&[place] [address] MALAIKA ESCOTT ANGIOGRAP 6 MEDICAL EDW HY NECK SERV W/CONTRAS FOUNDATIO T/NONCONT N RAST ECG 71446 DAR DODGE ROUTINE 6 [facility] ECG INC INC W/LEAST 12 LDS TRCG ONLY W/O I&R AMB A0427 [facility] SERVICE 6 AMBULANCE AMBULANCE ALS SERVICE SERVICE EMERGENCY TRANSPORT LEVEL 1 THROMBOPL 80862 DAR DODGE ASTIN 6 [facility] TIME INC INC PARTIAL PLASMA/WH OLE BLOOD RADIOLOGI 08589 [facility] C EXAM 5 MEDICAL SANTI CHEST 2 IMAGING VIEWS ASS FRONTAL&[place] [address] DAR DODGE INFUSION 5 [facility] THERAPY/P INC INC ROPHYLAXI S /DX 1ST TO 1 HR THERAPEUT 07377 DAR DODGE IC 5 [facility] INJECTION INC INC IV PUSH EACH NEW DRUG INJECTION J1100 DEXTER RENTERIA 5 MRAIE MARIE DEXAMETHO SONE SODIUM PHOSPHATE 1 MG RADEX 50647 [place] [facility] ALL WRIST 5 MEDICAL COMPLETE IMAGING MINIMUM 3 ASS VIEWS COLLECTIO 07013 DEXTER Law VENOUS 5 MARIE MARIE BLOOD VENIPUNCT URE RADEX 94133 D[facility] DODGE WRIST 5 [facility] COMPLETE INC INC MINIMUM 3 VIEWS INJECTION J1100 DEXTER RENTERIA 5 MARIE MARIE DEXAMETHO SONE SODIUM PHOSPHATE 1 MG RADIOLOGI 13297 DAR DODGE C EXAM 5 [facility] CHEST 2 INC INC VIEWS FRONTAL&L ATERAL RADEX 33554 D[facility] DODGE WRIST 5 [facility] COMPLETE INC INC MINIMUM 3 VIEWS RADEX 86322 DAR DODGE WRIST 5 [facility] COMPLETE INC INC MINIMUM 3 VIEWS CAST Q4022 [facility] SUPPLIES 5 PHYSICIAN PHYSICIAN SHORT ARM S GROUP S GROUP SPLINT ADULT FIBERGLAS S RADEX 25339 [facility] ALL WRIST 5 MEDICAL COMPLETE IMAGING MINIMUM 3 ASS VIEWS O2 CONC 1 E1390 [facility] GAL[facility] PORT 5 HOME HOME 85%/>02 MEDICAL MEDICAL CONC AT EQUIPME EQUIPME PRSC FLW RATE O2 CONC 1 E1390 ORTIZ GALARZA PORT 5 HOME HOME 85%/>02 MEDICAL MEDICAL CONC AT EQUIPME EQUIPME PRSC FLW RATE ECG 05609 [place] BRETT CHI ROUTINE 5 MEDICAL ECG SERV W/LEAST FOUNDATIO 12 LDS N I&R ONLY O2 CONC 1 E1390 [facility] GALARZA PORT 5 HOME HOME 85%/>02 MEDICAL MEDICAL CONC AT [place] [address] [facility], [facility], SURG 5 [facility] PATHOLOGY GROSS&GENNARO ROSCOPIC EXAM O2 CONC 1 E1390 ORTI[facility] GALARZA PORT 5 HOME HOME 85%/>02 MEDICAL MEDICAL CONC AT EQUIPME EQUIPME PRSC FLW RATE O2 CONC 1 E1390 ORTI[facility] GALARZA PORT 5 HOME HOME 85%/>02 MEDICAL MEDICAL CONC AT EQUIPME EQUIPME PRSC FLW RATE O2 CONC 1 E1390 ORTIZ GALARZA PORT 5 HOME HOME 85%/>02 MEDICAL MEDICAL CONC AT EQUIPME EQUIPME PRSC FLW RATE RADEX 28149 DAR DAR SPINE 5 [facility] LUMBOSACR INC INC AL MINIMUM 4 VIEWS O2 CONC 1 E1390 ORTIZ ORTIZ DEL PORT 4 HOME HOME 85%/>02 MEDICAL MEDICAL CONC AT EQUIPME EQUIPME PRSC FLW RATE O2 CONC 1 E1390 ORTIZ ORTIZ DEL PORT 4 HOME HOME 85%/>02 MEDICAL MEDICAL CONC AT EQUIPME EQUIPME PRSC FLW RATE O2 CONC 1 E1390 ORTIZ ORTIZ DEL PORT 4 HOME HOME 85%/>02 MEDICAL MEDICAL CONC AT EQUIPME EQUIPME PRSC FLW RATE O2 CONC 1 E1390 ORTIZ ORTIZ DEL PORT 4 HOME HOME 85%/>02 MEDICAL MEDICAL CONC AT EQUIPME EQUIPME PRSC FLW RATE O2 CONC 1 E1390 ORTIZ ORTIZ DEL PORT 4 HOME HOME 85%/>02 MEDICAL MEDICAL CONC AT EQUIPME EQUIPME PRSC FLW RATE THERAPEUT 03849 DEXTER RENTERIA JR IC 4 DWI DWI PROPHYLAC TIC/DX INJECTION SUBQ/IM O2 CONC 1 E1390 ORTIZ ORTIZ DEL PORT 4 HOME HOME 85%/>02 MEDICAL MEDICAL CONC AT EQUIPME EQUIPME PRSC FLW RATE O2 CONC 1 E1390 ORTIZ ORTIZ DEL PORT 4 HOME HOME 85%/>02 MEDICAL MEDICAL CONC AT EQUIPME EQUIPME PRSC FLW RATE O2 CONC 1 E1390 ORTIZ ORTIZ DEL PORT 4 HOME HOME 85%/>02 MEDICAL MEDICAL CONC AT EQUIPME EQUIPME PRSC FLW RATE O2 CONC 1 E1390 ORTIZ ORTIZ DEL PORT 4 HOME HOME 85%/>02 MEDICAL MEDICAL CONC AT EQUIPME EQUIPME PRSC FLW RATE O2 CONC 1 E1390 ORTIZ ORTIZ DEL PORT 4 HOME HOME 85%/>02 MEDICAL MEDICAL CONC AT EQUIPME EQUIPME PRSC FLW RATE INJECTION J1040 DEXTER LUBIN DEXTER JR 4 DWI DWI METHYLPRE DNISOLONE ACETATE 80 MG THERAPEUT 32725 DEXTER RENTERIA JR IC 4 DWI DWI PROPHYLAC TIC/DX INJECTION SUBQ/IM O2 CONC 1 E1390 ORTIZ ORTIZ DEL PORT 4 HOME HOME 85%/>02 MEDICAL MEDICAL CONC AT EQUIPME EQUIPME PRSC FLW RATE INJECTION J1100 DEXTER LUBIN DEXTER JR 4 DWI DWI DEXAMETHO SONE SODIUM PHOSPHATE 1 MG THERAPEUT 85858 DEXTER RENTERIA JR IC 4 DWI DWI PROPHYLAC TIC/DX INJECTION SUBQ/IM O2 CONC 1 E1390 ORTIZLACY ALCANTAR DEL PORT 4 HOME HOME 85%/>02 MEDICAL MEDICAL CONC AT EQUIPME EQUIPME PRSC FLW RATE O2 CONC 1 E1390 ORTIZLACY ALCANTAR DEL PORT 3 HOME HOME 85%/>02 MEDICAL MEDICAL CONC AT EQUIPME EQUIPME PRSC FLW RATE THERAPEUT 78031 DEXTER RENTERIA JR IC 3 DWI DWI PROPHYLAC TIC/DX INJECTION SUBQ/IM O2 CONC 1 E1390 ORTIZ ORTIZ DEL PORT 3 HOME HOME 85%/>02 MEDICAL MEDICAL CONC AT EQUIPME EQUIPME PRSC FLW RATE O2 CONC 1 E1390 ORTIZLACY ALCANTAR DEL PORT 3 HOME HOME 85%/>02 MEDICAL MEDICAL CONC AT EQUIPME EQUIPME PRSC FLW RATE O2 CONC 1 E1390 ORTIZ ORTIZ DEL PORT 3 HOME HOME 85%/>02 MEDICAL MEDICAL CONC AT EQUIPME EQUIPME PRSC FLW RATE O2 CONC 1 E1390 ORTIZ ORTZI DEL PORT 3 HOME HOME 85%/>02 MEDICAL MEDICAL CONC AT EQUIPME EQUIPME PRSC FLW RATE O2 CONC 1 E1390 ORTIZLACY ALCANTAR DEL PORT 3 HOME HOME 85%/>02 MEDICAL MEDICAL CONC AT EQUIPME EQUIPME PRSC FLW RATE O2 CONC 1 E1390 ORTIZ ORTIZ DEL PORT 3 HOME HOME 85%/>02 MEDICAL MEDICAL CONC AT EQUIPME EQUIPME PRSC FLW RATE O2 CONC 1 E1390 ORTIZ ORTIZ DEL PORT 3 HOME HOME 85%/>02 MEDICAL MEDICAL CONC AT EQUIPME EQUIPME PRSC FLW RATE O2 CONC 1 E1390 ORTIZ ORTIZ DEL PORT 3 HOME HOME 85%/>02 MEDICAL MEDICAL CONC AT EQUIPME EQUIPME PRSC FLW RATE O2 CONC 1 E1390 ORTIZ ORTIZ DEL PORT 3 HOME HOME 85%/>02 MEDICAL MEDICAL CONC AT EQUIPME EQUIPME PRSC FLW RATE O2 CONC 1 E1390 ORTIZ ORTIZ DEL PORT 3 HOME HOME 85%/>02 MEDICAL MEDICAL CONC AT EQUIPME EQUIPME PRSC FLW RATE O2 CONC 1 E1390 ORTIZ ALCANTAR DEL PORT 2 HOME HOME 85%/>02 MEDICAL MEDICAL CONC AT EQUIPME EQUIPME PRSC FLW RATE O2 CONC 1 E1390 ORTIZ ALCANTAR DEL PORT 2 HOME HOME 85%/>02 MEDICAL MEDICAL CONC AT EQUIPME EQUIPME PRSC FLW RATE O2 CONC 1 E1390 ORTIZ ALCANTAR DEL PORT 2 HOME HOME 85%/>02 MEDICAL MEDICAL CONC AT EQUIPME EQUIPME PRSC FLW RATE O2 CONC 1 E1390 ORTIZ ALCANTAR DEL PORT 2 HOME HOME 85%/>02 MEDICAL MEDICAL CONC AT EQUIPME EQUIPME PRSC FLW RATE O2 CONC 1 E1390 ORTIZ ALCANTAR DEL PORT 2 HOME HOME 85%/>02 MEDICAL MEDICAL CONC AT EQUIPME EQUIPME PRSC FLW RATE O2 CONC 1 E1390 ORTIZ ALCANTAR DEL PORT 2 HOME HOME 85%/>02 MEDICAL MEDICAL CONC AT EQUIPME EQUIPME PRSC FLW RATE ECHO 56898 DAR DODGE TTHRC R-T 2 [facility] 2D INC INC W/WOM-MOD E COMPL SPEC&COLR D RADIOLOGI 46898 [facility] EXAM 2 MEDICAL TRAVIS CHEST 2 IMAGING VIEWS ASS FRONTAL&L ATERAL RADIOLOGI 66392 [facility] EXAM 2 MEDICAL TRAVIS CHEST 2 IMAGING VIEWS ASS FRONTAL&L ATERAL INJECTION J1040 DEXTER RENTERIA JR 1 DWI DWI METHYLPRE DNISOLONE ACETATE 80 MG THERAPEUT 42140 DEXTER RENTERIA JR IC 1 DWI DWI PROPHYLAC TIC/DX INJECTION SUBQ/IM RADIOLOGI 95560 [facility] C EXAM 1 MEDICAL TRAVIS CHEST 2 IMAGING VIEWS ASS FRONTAL&L ATERAL RADIOLOGI 57713 [facility] EXAM 1 MEDICAL TRAVIS CHEST 2 IMAGING VIEWS ASS FRONTAL&L ATERAL COLLECTIO 04098 DAR DODGE N VENOUS 1 [facility] [place]LOOD [place] [address] DAR DODGE THYROID 1 [facility] STIMULATI INC INC NG HORMONE TSH ADMINISTR G0008 DEXTER RENTERIA DWI ATION OF 1 INFLUENZA VIRUS VACCINE IIV 39638 DEXTER RENTERIA DWI VACCINE 1 PRESERV FREE INCREASED AG CONTENT IM ALBUTEROL J7620 YOUR YOUR TO 2.5 1 PHARMACY PHARMACY [employer] IPRATROPI UM BROM TO 0.5 MG ADMN SET A7003 YOUR YOUR SM VOL 1 PHARMACY PHARMACY NONFILTR [employer] PNEUMAT NEBULIZR DISPBL PHRM Q0513 YOUR YOUR DISPENSIN 1 PHARMACY PHARMACY G FEE [employer] INHALATIO N RX; PER [address] [place] [address] [facility] LINDER ABDOMEN & 1 MEDICAL TRAVIS PELVIS IMAGING W/O ASS CONTRAST MATERIAL 3D 21541 [facility] LIUKAILASH RENDERING 1 MEDICAL TRAVIS IMAGING W/INTERP& ASS POSTPROC DIFF WORK STATION COLLECTIO 10514 DAR Law VENOUS 1 [facility] [place] [address] DAR DODGE THYROID 1 [facility] STIMULATI INC INC NG HORMONE TSH NEBULIZER E0570 ORTIZ ALCANTAR WITH 1 HOME MED HOME MED COMPRESSO EQUIP. L EQUIP. L R NEBULIZER E0570 ORTIZ ALCANTAR WITH 1 HOME MED HOME MED COMPRESSO EQUIP. L EQUIP. L R NEBULIZER E0570 [facility]TI[facility] ALCANTAR WITH 1 HOME MED HOME MED COMPRESSO [place] [address] DAR DODGE THYROID 1 [facility] STIMULATI INC INC NG HORMONE TSH POTASSIUM 38919 DAR DODGE SERUM 1 [facility] PLASMA/WH INC INC OLE BLOOD COLLECTIO 08457 DAR DODGE N VENOUS 1 [facility] BLOOD INC INC VENIPUNCT URE NEBULIZER E0570 ORTIZ ALCANTAR WITH 1 HOME MED HOME MED COMPRESSO EQUIP. L EQUIP. L R RADIOLOGI 86752 DAR DODGE C EXAM 0 [facility] CHEST 2 INC INC VIEWS FRONTAL&L ATERAL NEBULIZER E0570 ORTI[facility] ALCANTAR WITH 0 HOME MED HOME MED COMPRESSO EQUIP. L EQUIP. L R URNLS DIP 31817 DEXTER RENTERIA DWI 0 STICK/TAB LET RGNT NON-AUTO W/O MICRSCP NEBULIZER E0570 ORTI[facility] ALCANTAR WITH 0 HOME MED HOME MED COMPRESSO EQUIP. L EQUIP. L R PHRM Q0513 YOUR YOUR DISPENSIN 0 PHARMACY PHARMACY G FEE [employer] INHALATIO N RX; PER 30 DAYS ADMN SET A7003 YOUR YOUR SM VOL 0 PHARMACY PHARMACY NONFILTR [facility] PNEUMAT NEBULIZR DISPBL ALBUTEROL J7620 YOUR YOUR TO 2.5 0 PHARMACY PHARMACY [facility] [employer] [facility] IPRATROPI UM BROM TO 0.5 MG OPHTH 28747 [facility] MEDICAL 0 XM&EVAL COMPRHNSV ESTAB PT 1/> NEBULIZER E0570 ORTIZ ALCANTAR WITH 0 HOME MED HOME MED [place] [address] DAR DODGE HEAD/BRAI 0 [facility] N W/O & INC INC W/CONTRAS T MATERIAL 3D 29428 DAR DODGE RENDERING 0 [facility] W/INTERP INC INC & POSTPROCE SS SUPERVISI ON THERAPEUT 75886 DEXTER RENTERIA DWI IC 0 PROPHYLAC TIC/DX INJECTION SUBQ/IM COLLECTIO 54189 DAR DODGE N VENOUS 0 [facility] BLOOD INC INC VENIPUNCT URE IIV3 09990 DEXTER RENTERIA DWI VACCINE 0 SPLIT VIRUS 0.5 ML DOSAGE IM USE BASIC 93745 DAR DODGE METABOLIC 0 [facility] PANEL INC INC CALCIUM TOTAL NEBULIZER E0570 ORTIZ ALCANTAR WITH 0 HOME MED HOME MED COMPRESSO EQUIP. L EQUIP. L R NEBULIZER E0570 ORTIZ ALCANTAR WITH 0 HOME MED HOME MED COMPRESSO EQUIP. L EQUIP. L R POTASSIUM 33261 DAR DODGE SERUM 0 [facility] PLASMA/WH INC INC OLE BLOOD COLLECTIO 69737 DAR DODGE N VENOUS 0 [facility] BLOOD INC INC VENIPUNCT URE COLLECTIO 24887 DEXTER GUERRERO N VENOUS 0 BLOOD VENIPUNCT URE BASIC 09528 COMBINED COMBINED METABOLIC 0 PHYSICIAN PHYSICIAN PANEL S LA S LA CALCIUM TOTAL BLOOD 35342 COMBINED COMBINED COUNT 0 PHYSICIAN PHYSICIAN COMPLETE S LA S LA AUTO&AUTO DIFRNTL WBC LIPID 68069 COMBINED COMBINED PANEL 0 [place] [address] COMBINED COMBINED THYROID 0 PHYSICIAN PHYSICIAN STIMULATI S LA S LA NG HORMONE TSH TRANSFERA 06797 COMBINED COMBINED SE 0 PHYSICIAN PHYSICIAN ALANINE S LA S LA AMINO ALT SGPT NEBULIZER E0570 [facility]TI[facility] ALCANTAR WITH 0 HOME MED HOME MED COMPRESSO EQUIP. EQUIP. R [facility] LLC NEBULIZER E0570 ORTIZ ALCANTAR WITH 0 HOME MED HOME MED COMPRESSO EQUIP. EQUIP. R [facility] NEBULIZER E0570 ORTIZ LUNDBERGRELL WITH 0 HOME MED HOME MED COMPRESSO EQUIP. EQUIP. R [facility] PRESSURIZ 70154 DAR DODGE ED/NONPRE 0 [facility] SSURIZED INC INC INHALATIO N TREATMENT BRNCDILAT 12709 DAR DODGE RSPSE 0 [facility] SPMTRY INC INC PRE&POST- BRNCDILAT ADMN ECG 19392 SKYLA RTUONG, ROUTINE 0 EMERGENCY AMINAH S ECG SERVICES W/LEAST 12 LDS ASSOCIATE I&R ONLY S ECG 48976 D[facility] DODGE ROUTINE 0 [facility] ECG INC INC W/LEAST 12 LDS TRCG ONLY W/O I&R THER 27857 DAR DODGE PROPH/DX 0 [facility] NJX IV INC INC PUSH SINGLE/1S T SBST/DRUG CREATINE 88188 DAR DODGE KINASE 0 [facility] TOTAL INC INC BLOOD 13888 DAR DODGE COUNT 0 [facility] COMPLETE INC INC AUTO&AUTO DIFRNTL WBC GROUND A0425 [facility] MILEAGE 0 AMBULANCE AMBULANCE [place] [address] DAR DODGE TROPONIN 0 [facility] QUANTITAT INC INC CY COMPREHEN 63132 DAR DAR SIVE 0 [facility] METABOLIC INC INC PANEL CREATINE 98139 DAR DODGE KINASE MB 0 [facility] FRACTION INC INC ONLY AMB A0427 [facility] SERVICE 0 AMBULANCE AMBULANCE ALS SERVICE SERVICE EMERGENCY TRANSPORT LEVEL 1 [facility] 54792 [facility] 0 MEDICAL FIDENCIO EXAMINATI IMAGING ON CHEST ASSOCIATE SINGLE S VIEW FRONTAL ADMN SET A7003 ORTIZ ALCANTAR SM VOL 0 HOME MED HOME MED NONFILTR EQUIP. EQUIP. [facility] LLC LLC NEBULIZR DISPBL NEBULIZER E0570 ORTIZ ALCANTAR WITH 0 HOME MED HOME MED COMPRESSO EQUIP. EQUIP. R LLC LLC ADMN SET A7003 YOUR YOUR SM VOL 0 PHARMACY PHARMACY NONFILTR [employer] PNEUMAT NEBULIZR DISPBL PHARM G0333 YOUR YOUR DISPEN 0 PHARMACY PHARMACY FEE [employer] LLC RX; INITIAL 30-DAY SUPPLY ALBUTEROL J7620 YOUR YOUR TO 2.5 0 PHARMACY PHARMACY [facility] [employer] [facility] IPRATROPI UM BROM TO 0.5 MG INJECTION J1040 DEXTER RENTERIA, 0 MARIE E MARIE E METHYLPRE DNISOLONE ACETATE 80 MG THERAPEUT 55158 DEXTER RENTERIA, IC 0 MARIE E MARIE E PROPHYLAC TIC/DX INJECTION SUBQ/IM RADEX 20935 DAR DODGE SPINE 9 [facility] LUMBOSACR INC INC AL MINIMUM 4 VIEWS IIV3 69110 DEXTER RENTERIA, VACCINE 9 MARIE E MARIE E SPLIT VIRUS 0.5 ML DOSAGE IM USE ADMINISTR G0008 DEXTER RENTERIA, ATION OF 9 MARIE E MARIE E INFLUENZA VIRUS VACCINE THERAPEUT 14867 DEXTER RENTERIA, IC 9 MARIE E MARIE E PROPHYLAC TIC/DX INJECTION SUBQ/IM INJECTION J1040 DEXTER RENTERIA, 9 MARIE E MARIE E METHYLPRE DNISOLONE ACETATE 80 MG INJECTION J1040 DEXTER RENTERIA, 9 MARIE E MARIE E METHYLPRE DNISOLONE ACETATE 80 MG INJECTION J1040 DEXTER RENTERIA, 9 MARIE E MARIE E METHYLPRE DNISOLONE ACETATE 80 MG URNLS DIP 99808 DEXTER RENTERIA, 9 MARIE E MARIE E STICK/TAB LET RGNT NON-AUTO W/O MICRSCP SCR G0123 [facility] CYTOPATH 9 [facility] CERV/VAG INC INC [place] [address] COMBINED COMBINED THYROID 9 PHYSICIAN PHYSICIAN STIMULATI S LAB S LAB NG HORMONE TSH TRANSFERA 49240 COMBINED COMBINED SE 9 PHYSICIAN PHYSICIAN ALANINE S LAB S LAB AMINO ALT SGPT LIPID 34172 COMBINED COMBINED PANEL 9 PHYSICIAN PHYSICIAN S LAB S LAB BLOOD 88319 DEXTER RENTERIA, OCCULT 9 MARIE E MARIE E PEROXIDAS E ACTV QUAL FECES 1 DETER BLOOD 09834 COMBINED COMBINED COUNT 9 PHYSICIAN PHYSICIAN COMPLETE S LAB S LAB AUTO&AUTO DIFRNTL WBC COLLECTIO 98495 DEXTER RENTERIA, N VENOUS 9 MARIE E MARIE E BLOOD VENIPUNCT URE BASIC 24727 COMBINED COMBINED METABOLIC 9 PHYSICIAN PHYSICIAN PANEL S LAB S LAB CALCIUM TOTAL ECG 98112 DEXTER RENTERIA, ROUTINE 9 MARIE E MARIE E ECG W/LEAST 12 LDS W/I&R IIV3 38623 DEXTER RENTERIA, VACCINE 8 MARIE E MARIE E SPLIT VIRUS 0.5 ML DOSAGE IM USE ADMINISTR G0008 DEXTER RENTERIA, ATION OF 8 MARIE E MARIE E INFLUENZA VIRUS VACCINE INJECTION J1040 DEXTER RENTERIA, 8 MARIE E MARIE E METHYLPRE DNISOLONE ACETATE 80 MG Encounters Encounter Start End Date Code Location Performer Type Date [facility] DAR - 6 6 [facility] OUTPATIEN INC T EMERGENCY 49684 DAR 6 6 [facility] DEPARTMEN INC T VISIT LOW/MODER SEVERITY HOSPITAL DAR - 6 6 [facility]PATIEN [facility] - 6 6 [facility] T OFFICE 99724 KATIE APGE [facility]ELBA [facility] 6 6 MEDICINE T [facility] EMERGENCY [address]166 [place] ECKER[place] DEPT 6 6 MEDICAL JR [place] VISIT SERV HIGH FOUNDATIO SEVERITY& N THREAT FUN EMERGENCY 52566 DAR 6 6 [facility] VISIT HIGH/URGE NT SEVERITY [facility] DAR - 6 6 [facility] OUTPATIEN [facility] OFFICE 77153 DEXTER RENTERIA JR [facility] 6 6 MARIE DWI T VISIT 15 MINUTES OFFICE 95784 DEXTER RENTERIA JR OUTPATIEN 5 5 MARIE DWI T VISIT 15 MINUTES HOSPITAL DAR - 5 5 [facility] - 5 5 [facility] 5 [facility]PATI[facility] DAR - 5 5 [facility] 5 [facility] 06691 DEXTER RENTERIA JR OUTPATIEN 5 5 MARIE DWI T VISIT 15 MINUTES HOSPITAL DAR - 5 5 [facility] OUTPATIEN [facility] OFFICE 87755 DEXTER RENTERIA JR OUTPATIEN 4 4 DWI DWI T VISIT 10 MINUTES HOSPITAL DAR - 2 2 [facility]EN [facility] DAR - 2 2 [facility] OUTPATIEN [facility]PITAL DAR - 2 2 [facility] OUTPATIEN [facility] T OFFICE 87590 DEXTER JR DEXTER JR OUTPATIEN 2 2 DWI DWI T VISIT 15 MINUTES HOSPITAL DAR - 1 1 [facility] OUTPATIEN [facility] T OFFICE 56484 DEXTER DWI DEXTER DWI OUTPATIEN 1 1 T VISIT 15 MINUTES HOSPITAL DAR - 1 1 [facility] OUTPATIEN [facility] T OFFICE 59860 DEXTER DWI DEXTER DWI OUTPATIEN 1 1 T VISIT 15 MINUTES HOSPITAL DAR - 1 1 [facility] T OFFICE 86087 DEXTER DWI DEXTER DWI OUTPATIEN 1 1 T VISIT 15 MINUTES HOSPITAL DAR - 1 1 [facility] OUTPATIEN [facility] T OFFICE 38798 DEXTER DWI DEXTER DWI OUTPATIEN 1 1 T VISIT 15 MINUT[facility] HOSPITAL [facility]AR - 0 0 [facility] OUTPATIEN [facility] T OFFICE 98650 DEXTER DWI DEXTER DWI OUTPATIEN 0 0 T VISIT 15 MINUT[facility] HOSPITAL DAR - 0 0 [facility] OUTPATIEN [facility] T OFFICE 05149 DEXTER DWI DEXTER DWI OUTPATIEN 0 0 T VISIT 15 MINUTES HOSPITAL DAR - 0 0 [facility] DAR - 0 0 [facility] OUTPATIEN [facility] T OFFICE 86618 DEXTER, DEXTER, OUTPATIEN 0 0 MARIE E MARIE E T VISIT 15 MINUTES HOSPITAL DAR - 0 0 [facility] OUTPATIEN [facility] T OFFICE 30324 DEXTER, DEXTER, OUTPATIEN 0 0 MARIE E MARIE E T VISIT 15 MINUTES EMERGENCY 38043 DAR 0 0 [facility] DEPARTMEN INC T VISIT HIGH/URGE NT SEVERITY EMERGENCY 52168 SKYLA TRUONG, DEPT 0 0 EMERGENCY AMINAH S VISIT SERVICES HIGH SEVERITY& ASSOCIATE THREAT S [facility] DAR - 0 0 [facility] OUTPATIEN INC T OFFICE 85907 [facility] OUTPATIEN 0 0 MARIE E MARIE E T VISIT 15 MINUTES OFFICE 50276 [facility] OUTPATIEN 0 0 MARIE E MARIE E T VISIT 15 MINUTES OFFICE 56252 [facility] OUTPATI[facility] 9 9 MARIE E MARIE E T VISIT 15 MINUTES HOSPITAL DAR - 9 9 [facility] OUTPATIEN INC T OFFICE 35782 [facility] OUT[facility] 9 9 MARIE E MARIE E T VISIT 15 MINUTES OFFICE 23800 [facility] OUTPATI[facility] 9 9 MARIE E MARIE E T VISIT 15 MINUTES OFFICE 36595 [facility] OUTPATIEN 9 9 MARIE E MARIE E T VISIT 15 MINUTES OFFICE 33962 [facility] OUTPATIEN 9 9 MARIE E MARIE E T VISIT 15 MINUTES OFFICE 77853 [place] 9 9 [facility] NEW/ESTAB [facility] PATIENT 15 MIN OFFICE 46758 [facility] OUTPATIEN 9 9 MARIE E MARIE E T VISIT 15 MINUTES OFFICE 63578 [facility] OUTPATIEN 9 9 MARIE E MARIE E T VISIT 25 MINUTES OFFICE 09158 [facility] OUTPATIEN 9 9 MARIE E MARIE E T VISIT 15 MINUTES OFFICE 53277 [facility] OUTPATI[facility] 9 9 MARIE E MARIE E T VISIT 15 MINUTES OFFICE 30627 [facility] OUTPATI[facility] 8 8 MARIE E MARIE E T VISIT 15 MINUTES OFFICE 62738 [facility] OUTPATI[facility] 8 8 MARIE E MARIE E T VISIT 15 MINUTES OFFICE 69230 [facility] OUTPATI[facility] 8 8 MARIE E MARIE E T VISIT 15 MINUTES OFFICE 55088 [facility] 8 8 MARIE E MARIE E T VISIT 15 MINUTES OFFICE 21213 [facility] OUT[facility] 8 8 MARIE E MARIE E T VISIT 15 MINUTES
--- OUTSIDE RECORDS SUMMARY | 2016-12-05 22:21 | External Medical Summary Rpt ---
Author Author , Organization [employer] Address Unknown Phone Unavailable Care Team Providers Care Draw Operator Name Role Phone [facility] Unavailable Unavailable INC, [facility] BEINEKE SANTI, BEINEKE Unavailable Unavailable SANTI RIVERO ALL, RIVERO ALL Unavailable Unavailable [facility] Unavailable Unavailable SERVICE, [facility] Unavailable Unavailable SERVICE, [facility] Un[facility] Unavailable [place], [facility] Unavailable [facility], [facility] Unavailable Unavailable LAB, [facility] KAILASH TRAVIS, Unavailable Unavailable KAILASH TRAVIS KAILASHLUCIUS ZHANGLAS, Unavailable Unavailable KAILASH, FIDENCIO CAMILO MELBA, CAMILO MELBA Unavailable Unavailable [facility] Unavailable [place]available [place], [facility] [place] [facility] Un[place] Un[place], [facility] ECKERLINE JR HANANE, Unavailable Unavailable ECKERLINE JR HANANE ESCOTT EDW, ESCOTT Unavailable Unavailable EDW AMINAH TRUONG, Unavailable Unavailable AMINAH TRUONG [facility] Unavailable Unavailable INC, [facility] Unavailable [facility]available [facility]PITAL P, [facility] BENNETT AMY, BENNETT AMY Unavailable Unavailable BENNETT AMY, BENNETT AMY Unavailable Unavailable [facility], Unavailable Unavailable [facility] Unavailable Unavailable [facility], [facility] Un[facility], [facility] Unavailable Unavailable [facility] CHÁVEZ MARIELLA, CHÁVEZ MARIELLA [...] EQUIPME JOSE BREAUX, Unavailable Unavailable JOSE BREAUX [facility], Unavailable Unavailable [facility] Un[facility], Unavailable Unavailable [facility] Purpose Continuity of Care Document - 09-15-2007 through 2016 Problems Code Diagnosis DOS Provider Status J449 CHRONIC 09-13-2016 [facility] OBSTRUCTIVE BRONX PULMONARY MEDICAL DISEASE UNS EQUIPME E039 HYPOTHYROID 05-25-2016 [facility] P I10 ESSENTIAL 05-25-2016 [facility] N R079 CHEST PAIN 05-25-2016 [place] [id number] LACERATION 04-26-2016 [facility] W/[facility] BODY RT INC FOREARM INITIAL [id number] APHASIA 01-23-2016 [facility] CEREBRAL INFARCTION N21254 DYSPHASIA 01-23-2016 [facility] CEREBRAL INFARCTION R201 HYPOESTHESI 01-23-2016 [facility] Z09 ENC F/U 01-23-2016 [facility] CMPL TX OTH THAN MALIG NEOPLSM S04239 CELLULITIS 12-24-2015 [facility] I361 NONRHEUMATI 12-16-2015 [facility] TRICUSPID SERV [facility] INSUFFICIEN CY R1310 DYSPHAGIA 12-16-2015 [facility] HOSPI G8191 HEMIPLEGIA 12-15-2015 [facility] AFFECTING SERVICE RIGHT DOMINANT SIDE I493 VENTRICULAR 12-15-2015 [facility]URE [facility] DEPOLARIZAT [facility] ION I18842 CEREBRAL 12-15-2015 [facility] D/T SERV THROMB LT [facility] MID CEREBRAL ART I639 CEREBRAL 12-15-2015 [facility] UNSPECIFIED [facility] 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 OCCLUSION & 12-15-2015 [facility] UNSPECIFIED [facility] CAROTID ARTERY I6602 OCCLUSION & 12-15-2015 [place] [facility] STEN[facility] SERV LEFT MIDDLE [facility] CEREBRAL ARTERY I671 CEREBRAL 12-15-2015 [place] [facility] ANEURYSM SERV NONRUPTURED [facility] I6931 COGNITIVE 12-15-2015 [facility]ITS [facility] FOLLOWING SERVICE CEREBRAL INFARCTION J349 UNSPECIFIED 12-15-2015 [facility] DISORDER [facility] OF NOSE AND [facility] NASAL SINUSES R200 ANESTHESIA 12-15-2015 [place] [facility] R41031 FACIAL 12-15-2015 [facility] WEAKNESS [facility] INC R4701 APHASIA 12-15-2015 [facility] R479 UNSPECIFIED 12-15-2015 [facility] SPEECH [facility] DISTURBANCE [facility] S R531 WEAKNESS 12-15-2015 [facility] Z720 TOBACCO USE 12-15-2015 [facility] INC J209 ACUTE 08-11-2015 [facility] BRONCHITIS MARIE UNSPECIFIED Z6822 BODY MASS 08-11-2015 [facility] INDEX BMI MARIE 22.0-22.9 ADULT J441 CHRONIC 07-25-2015 [facility] OBSTRUCTIVE MARIE PULMONARY DZ W/EXACERBAT ION J440 COPD WITH 07-21-2015 [facility] RESPIRATORY INFECTION R05 COUGH 07-21-2015 [facility] X84169H UNS FX 05-27-2015 [place] LOWER RT MEDICAL RADIUS IMAGING ASS SUBSQT ENC CLOS FX RTN [id number] OTH 05-27-2015 [facility] EXTRAARTIC [facility] FX LOW RT INC RADIUS SUB CLOS RTN E785 HYPERLIPIDE 05-19-2015 [facility] SUNITA MARIE UNSPECIFIED G609 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 NEUROPATHY UNSPECIFIED I2781 COR 05-19-2015 [facility] PULMONALE MARIE CHRONIC Z23 ENCOUNTER 05-19-2015 [facility] FOR MARIE IMMUNIZATIO N Z6823 BODY MASS 05-19-2015 [facility] INDEX BMI MARIE 23.0-23.9 ADULT V5412 AFTERCARE 04-25-2015 [facility] TRAUMATIC INC FRACTURE LOWER ARM V5419 AFTERCARE 04-25-2015 [facility]ATIC [facility] FRACTURE OTHER BONE 4660 ACUTE 04-18-2015 [facility] BRONCHITIS MARIE 53752 OBSTRUCTIVE 04-18-2015 [facility] CHRONIC MARIE BRONCHITIS WITH EXACERBATIO N 48758 FEVER 04-18-2015 [place] UNSPECIFIED [facility]ING ASS V851 BODY MASS 04-18-2015 [facility] INDEX MARIE BETWEEN 19-24 ADULT 48562 PAIN IN 03-20-2015 [place] JOINT, MEDICAL FOREARM IMAGING ASS 496 CHRONIC 01-17-[address] [facility] OBSTRUCTION MEDICAL NEC EQUIPME 4019 UNSPECIFIED 11-27-2014 [place] [facility] ESSENTIAL [facility] HYPERTENSIO FOUNDATION N 21567 OTHER 11-27-2014 [place] [facility] SPECIFIED SERV CARDIAC [facility] DYSRHYTHMIA S 1844 MALIGNANT 10-25-2014 [facility] NEOPLASM OF LLC VULVA UNSPECIFIED SITE 7213 LUMBOSACRAL 08-16-2014 [place] [facility] SPONDYLOSIS IM[facility]ING ASS WITHOUT MYELOPATHY 7242 LUMBAGO 08-16-2014 [facility] MARIE 7384 ACQUIRED 08-16-2014 [place] SPONDYLOLIS MEDICAL THESIS IMAGING ASS 8472 LUMBAR 08-16-2014 [facility] SPRAIN AND MARIE STRAIN V8522 BODY MASS 08-16-2014 [facility] INDEX MARIE 26.0-26.9 ADULT 4169 UNSPECIFIED 02-26-2014 [facility] JR CHRONIC DWI PULMONARY HEART DISEASE 84625 HEMATOMA 10-31-2013 [facility] JR COMPLICATIN DWI G A PROCEDURE NEC 460 ACUTE 07-10-2013 [facility] JR NASOPHARYNG DWI ITIS 7823 EDEMA 01-26-2012 APRIL JR REYNA 2449 UNSPECIFIED 01-24-2012 [facility] JR DWI HYPOTHYROID ISM 486 PNEUMONIA, 11-12-2011 [facility] ORGANISM [facility] UNSPECIFIED INC 73747 OTHER 11-12-2011 [place] DISEASES OF MEDICAL LUNG NOT IMAGING ASS ELSEWHERE CLASSIFIED 5180 PULMONARY 2011 [place] COLLAPSE [facility] 5183 PULMONARY 2011 [place] EOSINOPHILI MEDICAL A IMAGING ASS 5110 PLEURISY 07-26-2011 [facility] WITHOUT [facility] MENTION INC EFFUS/CURRE NT TB V0481 NEED 04-20-2011 [facility] DWI PROPHYLACTI C VACCINATION &INOCULATIO N FLU 73326 ABDOMINAL 12-19-2010 [place] PAIN, MEDICAL UNSPECIFIED IMAGING ASS SITE 73806 OTHER 12-14-2010 [facility] DWI CHRONIC OTITIS EXTERNA 2767 HYPERPOTASS 09-03-2010 [facility] EMIA [facility] INC 684 IMPETIGO 08-21-2010 [facility] DWI 5990 URINARY 07-17-2010 [facility] DWI TRACT INFECTION SITE NOT SPECIFIED 47709 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 UNSPECIFIED 7840 HEADACHE 05-06-2010 [facility] 2724 OTHER AND 03-02-2010 [facility] DWI UNSPECIFIED HYPERLIPIDE SUNITA 3569 UNSPEC 03-02-2010 [facility] DWI HEREDIT&IDI OPATHIC PERIPHERAL NEUROPATHY 19244 OTHER 03-02-2010 DEXTRE DWI SPECIFIED CIRCULATORY SYSTEM DISORDERS V5869 LONG-TERM 03-02-2010 [facility] (CURRENT) PHYSICIANS USE OF [place] OTHER MEDICATIONS 71804 CRAMP OF 02-24-2010 DEXTER, LIMB MARIE E 21531 SHORTNESS 11-21-2009 [facility] 03061 OTHER 11-21-2009 [facility] DYSPNEA AND AMBULANCE [place] [address] ACUT 10-03-2009 D[facility], SUPPRATV MARIE E OTITIS MEDIA W/O SPONT RUP EARDRUM 4610 ACUTE 10-03-2009 DEX[facility], MAXILLARY MARIE E SINUSITIS 6961 OTHER 12-24-2008 [facility] PSC DISORDERS 6983 LICHENIFICA 12-24-2008 [facility] P[facility] SIMPLEX CHRONICUS 6272 SYMPTOMATIC 10-29-2008 [facility], MARIE E MENOPAUSAL/ FEMALE CLIMACTERIC STATES V1589 OTH SPEC 10-29-2008 [facility] HX [place] PRESENTING INC HAZARDS HEALTH OTH V762 SCREENING 10-29-2008 [facility] FOR [place] MALIGNANT INC NEOPLASM OF THE CERVIX V812 SCREENING 10-29-2008 [facility], OTHER&UNSPE MAREI E C CARDIOVASCU LAR CONDITIONS 94638 UNSPECIFIED 10-01-2008 [facility], INFECTIVE MARIE E OTITIS EXTERNA 7856 ENLARGEMENT 07-17-2008 [facility], OF LYMPH MARIE E NODES 44293 UNSPECIFIED 03-01-2008 [facility], GANGLION MARIE E J44.9 [...] 85%/>02 MEDICAL MEDICAL CONC AT EQUIPME EQUIPME [facility] [place] [address] DAR DODGE TROPONIN 6 [facility] [place] [address] D[facility] D[facility] THYROID 6 [facility]OS[facility] STIMULATI INC INC NG HORMONE TSH RADIOLOGI 75881 [place] KAILASH EXAM 6 MEDICAL TRAVIS CHEST 2 IMAGING VIEWS ASS FRONTAL&L ATERAL ECG 79777 DAR RENTERIA JR ROUTINE 6 [facility] W/LEAST P 12 LDS I&R ONLY COLLECTIO 48396 [facility] D[facility] N VENOUS 6 [facility] BLOOD INC INC VENIPUNCT URE ECG 66681 [facility] ROUTINE 6 [facility] ECG INC INC W/LEAST 12 LDS TRCG ONLY W/O I&R BASIC 53001 [facility] METABOLIC 6 [facility] PANEL INC INC CALCIUM TOTAL SIMPLE 70559 D[facility] REPAIR 6 [facility] SCALP/NEC INC INC K/AX/KARINA T/TRUNK 2.5CM/< HOSPITAL G0463 [facility] 6 Y Y T [facility] HOSPITAL VISIT ASSESS & MGMT PT ECHO 64322 MALAIKA CHÁVEZ MARIELLA TTHRC R-T 6 MEDICAL 2D SERV W/WOM-MOD FOUNDATIO E COMPL N SPEC&COLR D SWALLOWIN 97415 [facility] 6 Y OF CAR W/CINERAD [place] IOGRAPY/V HOSPI IDRADIOG SBSQ 88884 [place] [address] MEDICAL JR LUT CARE/DAY SERV 25 FOUNDATIO MINUTES N INITIAL [address]35 [place] [address] MEDICAL JR LUT CARE/DAY SERV [address] [place] [address] [facility] D[facility] HEAD/BRAI 6 [facility] N W/O INC INC CONTRAST MATERIAL MRI BRAIN 22162 MALAIKA RASLAU BRAIN 6 MEDICAL FLA STEM W/O SERV CONTRAST FOUNDATIO MATERIAL N RADIOLOGI 32873 [place] [facility]ICK[facility] C 6 MEDICAL TREY EXAMINATI SERV ON CHEST FOUNDATIO SINGLE N VIEW FRONTAL CREATINE 95804 [facility] D[facility] KINASE MB 6 [facility] FRACTION INC INC ONLY COMPREHEN 65353 [facility] SIVE 6 [facility]OS[facility] METABOLIC INC INC PANEL BLOOD 43887 [facility] COUNT 6 [facility] COMPLETE INC INC AUTO&[place] [address] MALAIKA ESCOTT ANGIOGRAP 6 MEDICAL EDW HY HEAD SERV W/CONTRAS FOUNDATIO T/[place] [address] D[facility] DODGE TROPONIN 6 [facility] QUANTITAT INC INC CY GROUND A0425 [facility] MILEAGE 6 AMBULANCE AMBULANCE PER SERVICE SERVICE STATUTE MILE AMBULANCE A0428 [facility] SERVICE 6 AMBULANCE AMBULANCE BLS SERVICE SERVICE NONEMERGE NCY TRANSPORT PROTHROMB 18990 [facility] IN TIME 6 [facility] INC INC CREATINE 67843 D[facility] D[facility] KINASE 6 [facility] TOTAL INC INC ECG 91801 MALAIKA BRETT CHI ROUTINE 6 MEDICAL ECG SERV W/LEAST FOUNDATIO 12 LDS N I&[place] [address] MALAIKA ESCOTT ANGIOGRAP 6 MEDICAL EDW HY NECK SERV W/CONTRAS FOUNDATIO T/NONCONT N RAST ECG 76296 [facility] ROUTINE 6 [facility] ECG INC INC W/LEAST 12 LDS TRCG ONLY W/O I&R AMB A0427 [facility] SERVICE 6 AMBULANCE AMBULANCE ALS SERVICE SERVICE EMERGENCY TRANSPORT LEVEL 1 THROMBOPL 91116 [facility] ASTIN 6 [facility] TIME INC INC PARTIAL PLASMA/WH OLE BLOOD RADIOLOGI 85992 [facility] C EXAM 5 MEDICAL SANTI CHEST 2 IMAGING VIEWS ASS FRONTAL&[place] [address] D[facility] DOD[facility] INFUSION 5 [facility] THERAPY/P INC INC ROPHYLAXI S /DX 1ST TO 1 HR THERAPEUT 84679 [facility] DOD[facility] IC 5 [facility] INJECTION INC INC IV PUSH EACH NEW DRUG INJECTION J1100 [facility] RENTERIA 5 MARIE MARIE DEXAMETHO SONE SODIUM PHOSPHATE 1 MG RADEX 84350 [place] RIVERO ALL WRIST 5 MEDICAL COMPLETE IMAGING MINIMUM 3 ASS VIEWS COLLECTIO 63181 DEXTER Law VENOUS 5 MARIE MARIE BLOOD VENIPUNCT URE RADEX 74725 [facility] WRIST 5 [facility]OS[facility] COMPLETE INC INC MINIMUM 3 VIEWS INJECTION J1100 D[facility]TER RENTERIA 5 MARIE MARIE DEXAMETHO SONE SODIUM PHOSPHATE 1 MG RADIOLOGI 43132 D[facility] C EXAM 5 [facility]OS[facility] CHEST 2 INC INC VIEWS FRONTAL&L ATERAL RADEX 57930 [facility] WRIST 5 [facility]OS[facility] COMPLETE INC INC MINIMUM 3 VIEWS RADEX 16514 [facility] WRIST 5 [facility] COMPLETE INC INC MINIMUM 3 VIEWS CAST Q4022 [facility] SUPPLIES 5 PHYSICIAN PHYSICIAN SHORT ARM S GROUP S GROUP SPLINT ADULT FIBERGLAS S RADEX 84066 [facility] RIVERO ALL WRIST 5 MEDICAL COMPLETE IMAGING MINIMUM 3 ASS VIEWS O2 CONC 1 E1390 [facility] GALARZA PORT 5 HOME HOME 85%/>02 MEDICAL MEDICAL CONC AT EQUIPME EQUIPME PRSC FLW RATE O2 CONC 1 E1390 [facility] GALARZA PORT 5 HOME HOME 85%/>02 MEDICAL MEDICAL CONC AT EQUIPME EQUIPME PRSC FLW RATE ECG 49579 [place] BRETT CHI ROUTINE 5 MEDICAL ECG SERV W/LEAST FOUNDATIO 12 LDS N I&R ONLY O2 CONC 1 E1390 [facility] GALARZA PORT 5 HOME HOME 85%/>02 MEDICAL MEDICAL CONC AT EQUIP[place] [address] [facility] SURG 5 [facility] PATHOLOGY GROSS&GENNARO ROSCOPIC EXAM [...] AT EQUIPME EQUIPME PRSC FLW RATE RADEX 57513 DAR DAR SPINE 5 MEM HOSP MEM [...] AT EQUIPME EQUIPME PRSC FLW RATE THERAPEUT 34480 DEXTER RENTERIA JR IC 4 DWI DWI [...] DWI METHYLPRE DNISOLONE ACETATE 80 MG THERAPEUT 09730 D[facility]TER RENTERIA JR IC 4 DWI DWI PROPHYLAC TIC/DX INJECTION SUBQ/IM O2 CONC 1 E1390 [facility] ORTIZ DEL PORT 4 HOME HOME 85%/>02 MEDICAL MEDICAL CONC AT EQUIPME EQUIPME PRSC FLW RATE INJECTION J1100 DEXTER LUBIN DEXTER JR 4 DWI DWI DEXAMETHO SONE SODIUM PHOSPHATE 1 MG THERAPEUT 01011 DEXTER RENTERIA JR IC 4 DWI DWI PROPHYLAC TIC/DX INJECTION SUBQ/IM O2 CONC 1 E1390 ORTIZLACY ALCANTAR DEL PORT 4 HOME HOME 85%/>02 MEDICAL MEDICAL CONC AT EQUIPME EQUIPME PRSC FLW RATE O2 CONC 1 E1390 ORTIZLACY ALCANTAR DEL PORT 3 HOME HOME 85%/>02 MEDICAL MEDICAL CONC AT EQUIPME EQUIPME PRSC FLW RATE THERAPEUT 43034 DEXTER RENTERIA JR IC 3 DWI DWI [...] AT EQUIPME EQUIPME PRSC FLW RATE ECHO 35426 DAR DODGE TTHRC R-T 2 [facility] 2D INC INC W/WOM-MOD E COMPL SPEC&COLR D RADIOLOGI 11594 [facility] EXAM 2 MEDICAL TRAVIS CHEST 2 IMAGING VIEWS ASS FRONTAL&L ATERAL RADIOLOGI 27630 [facility] EXAM 2 MEDICAL TRAVIS CHEST 2 IMAGING VIEWS ASS FRONTAL&L ATERAL INJECTION J1040 D[facility]TER RENTERIA JR 1 DWI DWI METHYLPRE DNISOLONE ACETATE 80 MG THERAPEUT 05849 D[facility]TER RENTERIA JR IC 1 DWI DWI PROPHYLAC TIC/DX INJECTION SUBQ/IM RADIOLOGI 49789 [facility] C EXAM 1 MEDICAL TRAVIS CHEST 2 IMAGING VIEWS ASS FRONTAL&L ATERAL RADIOLOGI 36382 [facility] EXAM 1 MEDICAL TRAVIS CHEST 2 IMAGING VIEWS ASS FRONTAL&L ATERAL COLLECTIO 75651 [facility] DODGE N VENOUS 1 [facility] [place] [address] DAR DODGE THYROID 1 [facility] STIMULATI INC INC NG HORMONE TSH ADMINISTR G0008 DEXTER RENTERIA DWI ATION OF 1 [place]FL[place]IRUS VACCINE IIV 30803 D[facility]TER RENTERIA DWI VACCINE 1 PRESERV FREE INCREASED AG CONTENT IM ALBUTEROL J7620 YOUR YOUR TO 2.5 1 PHARMACY PHARMACY [employer] [facility] IPRATROPI UM BROM TO 0.5 MG ADMN SET A7003 YOUR YOUR SM VOL 1 PHARMACY PHARMACY NONFILTR [employer] PNEUMAT NEBULIZR DISPBL PHRM Q0513 YOUR YOUR DISPENSIN 1 PHARMACY PHARMACY G [employer] INHALATIO N RX; [place] [address] [place] [address] [facility] LINDER ABDOMEN & 1 MEDICAL TRAVIS PELVIS IMAGING W/O ASS CONTRAST MATERIAL 3D 65568 [facility] LIUKAILASH RENDERING 1 MEDICAL TRAVIS IMAGING W/INTERP& ASS POSTPROC DIFF WORK STATION COLLECTIO 36862 DAR Law VENOUS 1 [facility] [place] [address] DAR DODGE THYROID 1 [facility] STIMULATI INC INC NG HORMONE TSH NEBULIZER E0570 [facility] ALCANTAR WITH 1 HOME MED HOME MED COMPRESSO EQUIP. L EQUIP. L R NEBULIZER E0570 [facility] ALCANTAR WITH 1 HOME MED HOME MED COMPRESSO EQUIP. L EQUIP. L R NEBULIZER E0570 [facility] ALCANTAR WITH 1 HOME MED HOME MED COMPRESSO [place] [address] DAR DODGE THYROID 1 [facility] STIMULATI INC INC NG HORMONE TSH POTASSIUM 79371 DAR DODGE SERUM 1 [facility] PLASMA/WH INC INC OLE BLOOD COLLECTIO 79108 ADR DODGE N VENOUS 1 [facility] BLOOD INC INC VENIPUNCT URE NEBULIZER E0570 [facility] ALCANTAR WITH 1 HOME MED HOME MED COMPRESSO EQUIP. L EQUIP. L R RADIOLOGI 84433 DAR DODGE C EXAM 0 [facility] CHEST 2 INC INC VIEWS FRONTAL&L ATERAL NEBULIZER E0570 [facility] ALCANTAR WITH 0 HOME MED HOME MED COMPRESSO EQUIP. L EQUIP. L R URNLS DIP 27132 DEXTER RENTERIA DWI 0 STICK/TAB LET RGNT NON-AUTO W/O MICRSCP NEBULIZER E0570 [facility] ALCANTAR WITH 0 HOME MED HOME MED COMPRESSO EQUIP. L EQUIP. L R PHRM Q0513 YOUR YOUR DISPENSIN 0 PHARMACY PHARMACY G [employer] INHALATIO N RX; PER 30 DAYS ADMN SET A7003 YOUR YOUR SM VOL 0 PHARMACY PHARMACY NONFILTR [facility] PNEUMAT NEBULIZR DISPBL ALBUTEROL J7620 YOUR YOUR TO 2.5 0 PHARMACY PHARMACY [facility] IPRATROPI UM BROM TO 0.5 MG OPHTH 34025 [facility] MEDICAL 0 XM&EVAL COMPRHNSV ESTAB PT 1/> NEBULIZER E0570 [facility] ALCANTAR WITH 0 HOME MED HOME MED [place] [address] D[facility] DODGE HEAD/BRAI 0 [facility] N W/O & INC INC W/CONTRAS T MATERIAL 3D 21631 [facility] D[facility] RENDERING 0 [facility] W/INTERP INC INC & POSTPROCE SS SUPERVISI ON THERAPEUT 49816 DEXTER RENTERIA DWI IC 0 PROPHYLAC TIC/DX INJECTION SUBQ/IM COLLECTIO 41388 [facility] DOD[facility] N VENOUS 0 [facility] BLOOD INC INC VENIPUNCT URE IIV3 71152 DEXTER RENTERIA DWI VACCINE 0 SPLIT VIRUS 0.5 ML DOSAGE IM USE BASIC 22643 [facility] DOD[facility] METABOLIC 0 [facility] PANEL INC INC CALCIUM TOTAL NEBULIZER E0570 [facility] ALCANTAR WITH 0 HOME MED HOME MED COMPRESSO EQUIP. L EQUIP. L R NEBULIZER E0570 [facility] ALCANTAR WITH 0 HOME MED HOME MED COMPRESSO EQUIP. L EQUIP. L R POTASSIUM 71838 D[facility] DODGE SERUM 0 [facility] PLASMA/WH INC INC OLE BLOOD COLLECTIO 98732 [facility] DOD[facility] N VENOUS 0 [facility] BLOOD INC INC VENIPUNCT URE COLLECTIO 93314 DEXTER GUERRERO N VENOUS 0 BLOOD VENIPUNCT URE BASIC 94689 COMBINED COMBINED METABOLIC 0 PHYSICIAN PHYSICIAN PANEL S LA S LA CALCIUM TOTAL BLOOD 79402 COMBINED COMBINED COUNT 0 PHYSICIAN PHYSICIAN COMPLETE S LA S LA AUTO&AUTO DIFRNTL WBC LIPID 21720 COMBINED COMBINED PANEL 0 [place] [address] COMBINED COMBINED THYROID 0 PHYSICIAN PHYSICIAN STIMULATI S LA S LA NG HORMONE TSH TRANSFERA 16587 COMBINED COMBINED SE 0 PHYSICIAN PHYSICIAN ALANINE S LA S LA AMINO ALT SGPT NEBULIZER E0570 [facility] WITH 0 HOME MED HOME MED COMPRESSO EQUIP. EQUIP. R LLC LLC NEBULIZER E0570 [facility] ALCANTAR WITH 0 HOME MED HOME MED COMPRESSO EQUIP. EQUIP. R [facility] NEBULIZER E0570 [facility] LUNDBERGRELL WITH 0 HOME MED HOME MED COMPRESSO EQUIP. EQUIP. R [facility] PRESSURIZ 93098 D[facility] DODGE ED/NONPRE 0 [facility] SSURIZED INC INC INHALATIO N TREATMENT BRNCDILAT 06185 D[facility] DODGE RSPSE 0 [facility] SPMTRY INC INC PRE&POST- BRNCDILAT ADMN ECG 03289 SKYLA TRUONG, ROUTINE 0 EMERGENCY AMINAH S ECG SERVICES W/LEAST 12 LDS ASSOCIATE I&R ONLY S ECG 55046 [facility] ROUTINE 0 [facility] ECG INC INC W/LEAST 12 LDS TRCG ONLY W/O I&R THER 30312 [facility] D[facility] PROPH/DX 0 [facility] NJX IV INC INC PUSH SINGLE/1S T SBST/DRUG CREATINE 11725 [facility] D[facility] KINASE 0 [facility] TOTAL INC INC BLOOD 01420 D[facility] DODGE COUNT 0 [facility] COMPLETE INC INC AUTO&AUTO DIFRNTL WBC GROUND A0425 [facility] MILEAGE 0 AMBULANCE AMBULANCE [place] [address] DAR DODGE TROPONIN 0 [facility] QUANTITAT INC INC CY COMPREHEN 93641 DAR DAR SIVE 0 [facility] METABOLIC INC INC PANEL CREATINE 90986 DAR DODGE KINASE MB 0 [facility] FRACTION INC INC ONLY AMB [id number] [facility] SERVICE 0 AMBULANCE AMBULANCE ALS SERVICE SERVICE EMERGENCY TRANSPORT LEVEL 1 RAD[facility]OLOGI 13919 [facility] MEDICAL FIDENCIO EXAMINATI IMAGING ON CHEST ASSOCIATE SINGLE S VIEW FRONTAL ADMN SET A7003 [facility] ALCANTAR SM VOL 0 HOME MED HOME MED NONFILTR EQUIP. EQUIP. [facility] NEBULIZR DISPBL NEBULIZER E0570 ORTIZ ALCANTAR WITH 0 HOME MED HOME MED COMPRESSO EQUIP. EQUIP. R LLC LLC ADMN SET A7003 YOUR YOUR SM VOL 0 PHARMACY PHARMACY NONFILTR [facility] PNEUMAT NEBULIZR DISPBL PHARM G0333 YOUR YOUR DISPEN 0 PHARMACY PHARMACY FEE [facility] RX; INITIAL 30-DAY SUPPLY ALBUTEROL J7620 YOUR YOUR TO 2.5 0 PHARMACY PHARMACY [facility] LLC IPRATROPI UM BROM TO 0.5 MG INJECTION J1040 DEXTER RENTERIA, 0 MARIE E MARIE E METHYLPRE DNISOLONE ACETATE 80 MG THERAPEUT 89486 DEXTER RENTERIA, IC 0 MARIE E MARIE E PROPHYLAC TIC/DX INJECTION SUBQ/IM RADEX 42525 DAR DODGE SPINE 9 [facility] LUMBOSACR INC INC AL MINIMUM 4 VIEWS IIV3 90581 DEXTER RENTERIA, VACCINE 9 MARIE E MARIE E SPLIT VIRUS 0.5 ML DOSAGE IM USE ADMINISTR G0008 DEXTER RENTERIA, ATION OF 9 MARIE E MARIE E INFLUENZA VIRUS VACCINE THERAPEUT 48529 DEXTER RENTERIA, IC 9 MARIE E MARIE E PROPHYLAC TIC/DX INJECTION SUBQ/IM INJECTION J1040 DEXTER RENTERIA, 9 MARIE E MARIE E METHYLPRE DNISOLONE ACETATE 80 MG INJECTION J1040 DEXTER RENTERIA, 9 MARIE E MARIE E METHYLPRE DNISOLONE ACETATE 80 MG INJECTION J1040 DEXTER RENTERIA, 9 MARIE E MARIE E METHYLPRE DNISOLONE ACETATE 80 MG URNLS DIP 92140 DEXTER RENTERIA, 9 MARIE E MARIE E STICK/TAB LET RGNT NON-AUTO W/O MICRSCP SCR G0123 [facility] CYTOPATH 9 [facility] CERV/VAG INC INC [place] [address] COMBINED COMBINED THYROID 9 PHYSICIAN PHYSICIAN STIMULATI S LAB S LAB NG HORMONE TSH TRANSFERA 55187 COMBINED COMBINED SE 9 PHYSICIAN PHYSICIAN ALANINE S LAB S LAB AMINO ALT SGPT LIPID 06730 COMBINED COMBINED PANEL 9 PHYSICIAN PHYSICIAN S LAB S LAB BLOOD 26702 DXETER RENTERIA, OCCULT 9 MARIE E MARIE E PEROXIDAS E ACTV QUAL FECES 1 DETER BLOOD 82444 COMBINED COMBINED COUNT 9 PHYSICIAN PHYSICIAN COMPLETE S LAB S LAB AUTO&AUTO DIFRNTL WBC COLLECTIO 29724 DEXTER RENTERIA, N VENOUS 9 MARIE E MARIE E BLOOD VENIPUNCT URE BASIC 30378 COMBINED COMBINED METABOLIC 9 PHYSICIAN PHYSICIAN PANEL S LAB S LAB CALCIUM TOTAL ECG 65188 DEXTER RENTERIA, ROUTINE 9 MARIE E MARIE E ECG W/LEAST 12 LDS W/I&R IIV3 64118 DEXTER RENTERIA, VACCINE 8 MARIE E MARIE E SPLIT VIRUS 0.5 ML DOSAGE IM USE ADMINISTR G0008 DEXTER RENTERIA, ATION OF 8 MARIE E MARIE E INFLUENZA VIRUS VACCINE INJECTION J1040 DEXTER RENTERIA, 8 MARIE E MARIE E METHYLPRE DNISOLONE ACETATE 80 MG Encounters Encounter Start End Date Code Location Performer Type Date [facility] DAR - 6 6 [facility] OUTPATIEN INC T EMERGENCY [id number] DAR 6 6 [facility] DEPARTMEN INC T VISIT LOW/MODER SEVERITY HOSPITAL DAR - 6 6 [facility] OUTPATIEN [facility] UNIVERSIT - 6 6 [facility] T OFFICE 16263 [facility]AT[facility] PAGE [facility] 6 MEDICINE T [facility] EMERGENCY [address] [place] [facility]CK[facility] DEPT 6 6 MEDICAL JR [facility]NANE VISIT SERV HIGH [facility]OUNDATIO SEVERITY& N THREAT FUN EMERGENCY 25254 DAR 6 6 [facility] VISIT HIGH/URGE NT [facility]VERITY [facility] DAR - 6 6 [facility] OUTPATIEN COUNT [facility]CLUDES [facility] OFFICE 97266 [facility] 6 6 MARIE DWI T VISIT 15 MINUT[facility] OFFICE 51687 [facility] JR OUTPATIEN 5 5 MARIE DWI T VISIT 15 MINUTES HOSPITAL DAR - 5 5 [facility]PATIEN [facility] DAR - 5 5 [facility] 5 5 [facility] OUTPATIEN COUNT [facility]CLUDES [facility] DAR - 5 5 [facility] 5 [facility] OFF[facility] 46909 [facility] JR OUTPATIEN 5 5 MARIE DWI T VISIT 15 MINUTES HOSPITAL DAR - 5 5 [facility] OUTPATIEN COUNT [facility]CLUDES THE [facility] OFFICE 54664 [facility] JR OUTPATIEN 4 4 DWI DWI T VISIT 10 MINUTES HOSPITAL DAR - 2 2 [facility] OUTPATIEN [facility] DAR - 2 2 [facility] OUTPATIEN COUNT [facility]CLUDES THE [facility] H[facility] DAR - 2 2 [facility] OUTPATIEN [facility] T OFFICE 33044 DEXTER JR DEXTER JR OUTPATIEN 2 2 DWI DWI T VISIT 15 MINUTES [facility]OSPITAL DAR - 1 1 [facility] OUTPATIEN [facility] T OFFICE 93947 DEXTER DWI DEXTER DWI OUTPATIEN 1 1 T VISIT 15 MINUTES HOSPITAL DAR [facility] 1 1 [facility] OUTPATIEN [facility] T OFFICE 77462 DEXTER DWI DEXTER DWI OUTPATIEN 1 1 T VISIT 15 MINUTES HOSPITAL DAR [facility] 1 1 [facility] OUTPATIEN [facility] T OFFICE 10069 DEXTER DWI DEXTER DWI OUTPATIEN 1 1 T VISIT 15 MINUTES HOSPITAL DAR [facility] 1 1 [facility] OUTPATIEN [facility] T OFFICE 49244 DEXTER DWI DEXTER DWI OUTPATIEN 1 1 T VISIT 15 MINUTES HOSPITAL [facility]AR - 0 0 [facility] OUTPATI[facility] T OFFICE 85404 DEXTER DWI DEXTER DWI OUTPATIEN 0 0 T VISIT 15 MINUTES HOSPITAL DAR [facility] 0 0 [facility] OUTPATIEN [facility] T OFFICE 05905 DEXTER DWI DEXTER DWI OUTPATIEN 0 0 T VISIT 15 MINUTES HOSPITAL DAR - 0 0 [facility] OUTPATIEN COUNT INCLUDES THE [facility] H[facility] DAR - 0 0 [facility] OUTPATIEN [facility] T OFFICE 29765 DEXTER, DEXTER, OUTPATIEN 0 0 MARIE E MARIE E T VISIT 15 MINUTES HOSPITAL DAR - 0 0 [facility] OUTPATIEN [facility] T OFFICE 44631 DEXTER, DEXTER, OUTPATIEN 0 0 MARIE E MARIE E T VISIT 15 MINUTES EMERGENCY 54228 DAR 0 0 [facility] DEPARTMEN INC T VISIT HIGH/URGE NT SEVERITY EMERGENCY 68964 SKYLA TRUONG, DEPT 0 0 EMERGENCY AMINAH S VISIT SERVICES HIGH SEVERITY& ASSOCIATE THREAT S [facility] DAR - 0 0 [facility] OUTPATIEN INC T OFFICE 70625 [facility] OUTPATIEN 0 0 MARIE E MARIE E T VISIT 15 MINUTES OFFICE 76132 [facility] OUTPATIEN 0 0 MARIE E MARIE E T VISIT 15 MINUTES OFFICE 12529 [facility] OUTPATIEN 9 9 MARIE E MARIE E T VISIT 15 MINUTES HOSPITAL DAR - 9 9 [facility] OUTPATIEN INC T OFFICE 52424 [facility] OUTPATIEN 9 9 MARIE E MARIE E T VISIT 15 MINUTES OFFICE 50057 [facility] OUTPATIEN 9 9 MARIE E MARIE E T VISIT 15 MINUTES OFFICE 51303 [facility] OUTPATIEN 9 9 MARIE E MARIE E T VISIT 15 MINUTES OFFICE 58756 [facility] OUTPATIEN 9 9 MARIE E MARIE E T VISIT 15 MINUTES OFFICE 20825 [place] 9 9 [facility] NEW/[facility] PATIENT 15 MIN OFFICE 89831 [facility]ENTER[facility] OUTPATIEN 9 9 MARIE E MARIE E T VISIT 15 MINUTES OFFICE 88709 [facility] OUTPATIEN 9 9 MARIE E MARIE E T VISIT 25 MINUTES OFFICE 91956 [facility] OUTPATIEN 9 9 MARIE E MARIE E T VISIT 15 MINUTES OFFICE 21988 [facility] OUTPATIEN 9 9 MARIE E MARIE E T VISIT 15 MINUTES OFFICE 68349 [facility] OUTPATIEN 8 8 MARIE E MARIE E T VISIT 15 MINUTES OFFICE 72033 [facility] OUTPATIEN 8 8 MARIE E MARIE E T VISIT 15 MINUTES OFFICE 68187 [facility] OUTPATIEN 8 8 MARIE E MARIE E T VISIT 15 MINUTES OFFICE 31978 [facility] OUTPATIEN 8 8 MARIE E MARIE E T VISIT 15 MINUTES OFFICE 90624 [facility] OUTPATIEN 8 8 MARIE E MARIE E T VISIT 15 MINUTES
--- OUTSIDE RECORDS SUMMARY | 2016-12-05 22:27 | External Medical Summary Rpt ---
Author Author , Organization [employer] Address Unknown Phone Unavailable Care Team Providers Care Senior Technical Trainer Name Role Phone [facility] Unavailable Unavailable INC, [facility] BEINEKE SANTI, BEINEKE Unavailable Unavailable SANTI RIVERO, RIVERO Unavailable Unavailable RIVERO ALL, RIVERO ALL Unavailable Unavailable [facility] Unavailable Unavailable SERVICE, [facility] Unavailable Unavailable SERVICE, [facility] Unavailable Unavailable [place], [facility] Unavailable Unavailable [facility], [facility] Unavailable Unavailable LAB, [facility] KAILASH TRAVIS, Unavailable Unavailable KAILASH TRAVIS KAILASHFIDENCIO ZHANG, Unavailable Unavailable KAILASH, FIDENCIO CAMILO MELBA, CAMILO MELBA Unavailable Unavailable [facility] Unavailable [place]available [place], [facility] [place] [facility] Unavailable Un[place] [facility] ECKERLINE JR HANANE, Unavailable Unavailable ECKERLINE JR HANANE ESCOTT EDW, ESCOTT Unavailable Unavailable EDW AMINAH TRUONG, Unavailable Unavailable AMINAH TRUONG [facility] Unavailable Unavailable INC, [facility] Unavailable Unavailable HOSPITAL P, [facility] BENNETT AMY, BENNETT AMY Unavailable Unavailable BENNETT AMY, BENNETT AMY Unavailable Unavailable [facility], Unavailable Unavailable [facility] Unavailable [facility]available IM[facility]ING [facility], [facility]available [facility]available [facility], [facility] Unavailable Unavailable [facility] CHÁVEZ MARIELLA, CHÁVEZ MARIELLA Unavailable Unavailable DEXTER DWI, DEXTER DWI Unavailable Unavailable DEXTER DWI, DEXTER DWI Unavailable Unavailable DEXTER MARIE, DEXTER Unavailable Unavailable MARIE DEXTER JR DWI, DEXTER Unavailable Unavailable JR DWI DEXTER JR DWI, DEXTER Unavailable Unavailable JR DWI DEXTER, MARIE E, Unavailable Unavailable DEXTER, MARIE E MCKEMIE JR REYNA, Unavailable Unavailable APRIL CHEN JR REYNA, Unavailable Unavailable MAREN PATEL JR, JR Unavailable Unavailable F, MAREN CHEN JR F NICKELS TREY, NICKELS Unavailable Unavailable T[facility] [...] EQUIPME JOSE BREAUX, Unavailable Unavailable JOSE BREAUX H [facility], Unavailable Unavailable [facility] Unavailable [facility]available [facility], [facility], Unavailable Unavailable [facility] Purpose Continuity of Care Document - 09-15-2007 through 2016 Problems Code Diagnosis DOS Provider Status J449 CHRONIC 09-13-2016 [facility] OBSTRUCTIVE [place] PULMONARY MEDICAL DISEASE UNS EQUIPME E039 HYPOTHYROID 05-25-2016 [facility] I10 ESSENTIAL 05-25-2016 [facility] [place] [facility] HYPERTENSIO IM[facility]ING ASS N R079 CHEST PAIN 05-25-2016 [place] UNSPECIFIED MEDICAL IMAGING ASS [id number] LACERATION 04-26-2016 [facility] W/O FOREIGN [facility] BODY RT INC FOREARM INITIAL [id number] APHASIA 01-23-2016 [facility]PITAL CEREBRAL INFARCTION A81996 DYSPHASIA 01-23-2016 [facility]PITAL CEREBRAL INFARCTION R201 HYPOESTHESI 01-23-2016 [facility] Z09 ENC F/U 01-23-2016 [facility] EX[facility]TR HOSPITAL CMPL TX OTH THAN MAL NEOPLSM C88101 CELLULITIS 12-24-2015 [facility] I361 NONRHEUMATI 12-16-2015 [facility] TRICUSPID SERV [facility] INSUFFICIEN CY R1310 DYSPHAGIA 12-16-2015 [facility] HOSPI G8191 HEMIPLEGIA 12-15-2015 [facility] AMBULANCE AFFECTING SERVICE RIGHT DOMINANT SIDE I493 VENTRICULAR 12-15-2015 [facility] DEPOLARIZAT [facility] ION I14343 CEREBRAL 12-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 [facility] D/T SERV THROMB LT [facility]OUNDATION MID CEREBRAL ART I639 CEREBRAL 12-15-2015 [facility] UNSPECIFIED [facility]OUNDATION 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 OCCLUSION & 12-15-2015 [facility] UNSPECIFIED [facility]OUNDATION CAROTID ARTERY I6602 OCCLUSION & 12-15-2015 [facility] STENOS[facility] SERV LEFT MIDDLE FOUNDATION CEREBRAL ARTERY I671 CEREBRAL 12-15-2015 [facility] ANEURYSM SERV NONRUPTURED [facility]OUNDATION I6931 COGNITIVE 12-15-2015 [facility] FOLLOWING SERVICE CEREBRAL INFARCTION J349 UNSPECIFIED 12-15-2015 [facility] DISORDER [facility] OF NOSE AND [facility]OUND[facility] NASAL SINUSES R200 ANESTHESIA 12-15-2015 [facility] SKIN MEDICAL IMAGING ASS D51241 FACIAL 12-15-2015 [facility] WEAKNESS [facility] INC R4701 APHASIA 12-15-2015 [facility] R479 UNSPECIFIED 12-15-2015 [facility] DISTURBANCE [facility] S R531 WEAKNESS 12-15-2015 [facility] Z720 TOBACCO USE 12-15-2015 [facility] INC J209 ACUTE 08-11-2015 [facility] BRONCHITIS MARIE UNSPECIFIED Z6822 BODY MASS 08-11-2015 [facility] INDEX BMI MARIE 22.0-22.9 ADULT J441 CHRONIC 07-25-2015 [facility] OBSTRUCTIVE MARIE PULMONARY DZ W/EXACERBAT ION J440 COPD WITH 07-21-2015 [facility] ACUTE LOWER [facility] INC RESPIRATORY INFECTION R05 COUGH 07-21-2015 [facility] [id number] UNS FX 05-27-2015 [place] LOWER RT MEDICAL RADIUS IMAGING ASS SUBSQT ENC CLOS FX RTN [id number] OTH 05-27-2015 [facility] EXTRAARTIC [facility] FX LOW RT INC RADIUS SUB CLOS RTN E785 HYPERLIPIDE 05-19-2015 D[facility] SUNITA MARIE UNSPECIFIED G609 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 NEUROPATHY UNSPECIFIED I2781 COR 05-19-2015 D[facility] PULMONALE MARIE CHRONIC Z23 ENCOUNTER 05-19-2015 [facility] FOR MARIE IMMUNIZATIO N Z6823 BODY MASS 05-19-2015 D[facility] INDEX BMI MARIE 23.0-23.9 ADULT V5412 AFTERCARE 04-25-2015 [facility] HEALING [facility] TRAUMATIC INC FRACTURE LOWER ARM V5419 AFTERCARE 04-25-2015 [facility] [place] HEALING MEDICAL TRAUMATIC IMAGING ASS FRACTURE OTHER BONE 4660 ACUTE 04-18-2015 D[facility] BRONCHITIS MARIE 40253 OBSTRUCTIVE 04-18-2015 DEXTER CHRONIC MARIE BRONCHITIS WITH EXACERBATIO N 51567 FEVER 04-18-2015 [place] UNSPECIFIED MEDICAL IMAGING ASS V851 BODY MASS 04-18-2015 D[facility]TER INDEX MARIE BETWEEN 19-24 ADULT 16402 PAIN IN 03-20-2015 [place] JOINT, MEDICAL FOREARM IMAGING ASS 496 CHRONIC 01-17-2015 [facility] OBSTRUCTION MEDICAL NEC EQUIPME 4019 UNSPECIFIED 11-27-2014 [facility] ESSENTIAL [facility] HYPERTENSIO FOUNDATION N 38814 OTHER 11-27-2014 [place] [facility] SPECIFIED SERV CARDIAC [facility] DYSRHYTHMIA S 1844 MALIGNANT 10-25-2014 [facility] NEOPLASM OF LLC VULVA UNSPECIFIED SITE 7213 LUMBOSACRAL 08-16-2014 [place] [facility]ICAL SPONDYLOSIS IMAGING ASS WITHOUT MYELOPATHY 7242 LUMBAGO 08-16-2014 DEXTER MARIE 7384 ACQUIRED 08-16-2014 [place] SPONDYLOLIS MEDICAL THESIS IMAGING ASS 8472 LUMBAR 08-16-2014 D[facility] SPRAIN AND MARIE STRAIN V8522 BODY MASS 08-16-2014 [facility] INDEX MARIE 26.0-26.9 ADULT 4169 UNSPECIFIED 02-26-2014 DEXTER JR CHRONIC DWI PULMONARY HEART DISEASE 51684 HEMATOMA 10-31-2013 DEXTER JR COMPLICATIN DWI G A PROCEDURE NEC 460 ACUTE 07-10-2013 DEXTER JR NASOPHARYNG DWI ITIS 7823 EDEMA 01-26-2012 APRIL LUBIN REYNA 2449 UNSPECIFIED 01-24-2012 DEXTER JR DWI HYPOTHYROID ISM 486 PNEUMONIA, 11-12-2011 [facility] ORGANISM [facility] UNSPECIFIED INC 79325 OTHER 11-12-2011 [place] DISEASES OF MEDICAL LUNG NOT IMAGING ASS ELSEWHERE CLASSIFIED 5180 PULMONARY 2011 [facility] [place] COLLAPSE MEDICAL IMAGING ASS 5183 PULMONARY 2011 [place] EOSINOPHILI MEDICAL A IMAGING ASS 5110 PLEURISY 07-26-2011 [facility] WITHOUT [facility] MENTION INC EFFUS/CURRE NT TB V0481 NEED 04-20-2011 DEXTER DWI PROPHYLACTI C VACCINATION &INOCULATIO N FLU 73718 ABDOMINAL 12-19-2010 [place] PAIN, MEDICAL UNSPECIFIED IMAGING ASS SITE 30250 OTHER 12-14-2010 DEXTER DWI CHRONIC OTITIS EXTERNA 2767 HYPERPOTASS 09-03-2010 [facility] EMIA [facility] INC 684 IMPETIGO 08-21-2010 DEXTER DWI 5990 URINARY 07-17-2010 D[facility] DWI TRACT INFECTION SITE NOT SPECIFIED 08959 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 UNSPECIFIED 7840 HEADACHE 05-06-2010 [facility] 2724 OTHER AND 03-02-2010 DEXTER DWI UNSPECIFIED HYPERLIPIDE SUNITA 3569 UNSPEC 03-02-2010 D[facility] DWI HEREDIT&IDI OPATHIC PERIPHERAL NEUROPATHY 05057 OTHER 03-02-2010 DEXTER DWI SPECIFIED CIRCULATORY SYSTEM DISORDERS V5869 LONG-TERM 03-02-2010 [facility] (CURRENT) [facility] USE OF [place] OTHER MEDICATIONS 64916 CRAMP OF 02-24-2010 DEXTER, LIMB MARIE E 17566 SHORTNESS 11-21-2009 [facility] 30687 OTHER 11-21-2009 [facility] DYSPNEA AND AMBULANCE [place] [address] ACUT 10-03-2009 DEXTER, SUPPRATV MARIE E OTITIS MEDIA W/O SPONT RUP EARDRUM 4610 ACUTE 10-03-2009 DEXTER, MAXILLARY MARIE E SINUSITIS 6961 OTHER 12-24-2008 [facility] DISORDERS 6983 LICHENIFICA 12-24-2008 NEW T[facility] SIMPLEX CHRONICUS 6272 SYMPTOMATIC 10-29-2008 DEXTER, MARIE E MENOPAUSAL/ FEMALE CLIMACTERIC STATES V1589 OTH SPEC 10-29-2008 [facility] PERS HX [place] PRESENTING INC HAZARDS HEALTH OTH V762 SCREENING 10-29-2008 [facility] FOR [place] MALIGNANT INC NEOPLASM OF THE CERVIX V812 SCREENING 10-29-2008 DEXTER, OTHER&UNSPE MARIE E C CARDIOVASCU LAR CONDITIONS 28297 UNSPECIFIED 10-01-2008 DEXTER, INFECTIVE MARIE E OTITIS EXTERNA 7856 ENLARGEMENT 07-17-2008 DEXTER, OF LYMPH MARIE E NODES 74476 UNSPECIFIED 03-01-2008 DEXTER, GANGLION MARIE E Medications Na ND Rx Da Fi Fi [...] 0. ST 45 WI ti EP 12 9 9- 00 SI 54 S ve AM [...] .0 ST 10 WI ti EP 12 4 0 00 SI 01 S ve AM 81 [...] ET NT HI AN A OX 00 02 [...] NT HI AN A OX 00 01 00 60 15 EA 11 LE [...] .0 ST 33 WI ti EP 12 9 SI 76 S ve AM 81 20 [...] .0 ST 83 t ti EP 12 5 4 SI 70 Av ve AM 81 20 20 DE ai 00 08 08 la 15 1 PH bl AR e MG MA CY CA PS OF UL CY E NT HI AN A OX 00 07 08 00 30 10 EA 98 No Ac AZ 78 -2 -[address] 83 t ti EP 12 5- SI 70 Av ve AM 81 20 20 DE ai 00 08 08 la 15 1 PH bl AR e MG MA CY CA PS OF UL CY E NT HI AN A OX 00 06 07 02 60 15 EA 98 No Ac AZ 78 -0 -[address] 21 t ti EP 12 2 7 SI 03 Av ve AM 81 20 20 DE ai 00 08 08 la 15 1 PH bl AR e MG MA CY CA PS OF UL CY E NT HI AN A OX 00 06 07 01 60 15 EA 98 No Ac AZ 78 -0 -[address] 21 t ti EP 12 2 3 SI 03 Av ve AM 81 20 [...] .0 ST 51 t ti EP 12 8 SI 86 Av ve AM 81 20 20 DE ai 00 08 08 la 15 1 PH bl AR e MG MA CY CA PS OF UL CY E NT HI AN A OX 00 04 05 01 60 15 EA 97 No Ac AZ 78 -0 -[address] 51 t ti EP 12 8 8 SI 86 Av ve AM 81 20 20 DE ai 00 08 08 la 15 1 PH bl AR e MG MA CY CA PS OF UL CY E NT HI AN A OX 00 04 04 00 60 15 EA 97 No Ac AZ 78 -0 -[address] 51 t ti EP 12 8 4 SI 86 Av ve AM 81 20 20 DE ai 00 08 08 la 15 1 PH bl AR e MG MA CY CA PS OF UL CY E NT HI AN A OX 00 12 04 05 60 15 EA 95 No Ac AZ 78 -1 -[address] 97 t ti EP 12 6 7 SI 55 Av ve AM 81 20 20 DE ai 00 07 08 la 15 1 PH bl AR e MG MA CY CA PS OF UL CY E NT HI AN A OX 00 12 04 04 60 15 EA 95 No Ac AZ 78 -1 -[address] 97 t ti EP 12 6- 7- 00 SI 55 Av ve AM 81 [...] ST 97 t ti EP 12 6 6 SI 55 Av ve AM 81 [...] 85%/>02 MEDICAL MEDICAL CONC AT EQUIPME EQUIPME [facility] FLW RATE COLLECTIO 78493 [facility] N VENOUS 6 [facility] BLOOD INC INC VENIPUNCT URE ECG 14110 D[facility] ROUTINE 6 [facility] ECG INC INC W/LEAST 12 LDS TRCG ONLY W/O I&R ECG 93871 DAR RENTERIA JR ROUTINE 6 [facility] W/LEAST P 12 LDS I&R ONLY BASIC 75509 [facility] METABOLIC 6 [facility] [place] [address] D[facility] THYROID 6 MEM H[facility]OS[facility] STIMULATI INC INC NG HORMONE TSH RADIOLOGI 48759 [facility] C EXAM 6 MEDICAL TRAVIS CHEST 2 IMAGING VIEWS ASS FRONTAL&[place] [address] [facility] D[facility] TROPONIN 6 MEM HOS[facility] QUANTITAT INC INC CY SIMPLE 93570 [facility] REPAIR 6 [facility] H[facility] SCALP/NEC INC INC K/AX/KARINA T/TRUNK 2.5CM/< HOSPITAL G0463 [facility] 6 Y Y T [facility] HOSPITAL HOSPITAL VISIT ASSESS & MGMT PT SBSQ 68773 [facility] 6 MEDICAL JR LUT CARE/DAY SERV 25 FOUNDATIO MINUTES N ECHO 90843 [facility] TTH[facility] R-T 6 MEDICAL 2D SERV W/WOM-MOD FOUNDATIO E COMPL N SPEC&COLR D SWALLOWIN 45185 [facility] 6 Y OF CAR W/CINERAD [place] IOGRAPY/V HOSPI IDRADIOG ECG 49926 [facility] ROUTINE 6 MEM HOSP MEM [facility]OSP ECG INC INC W/LEAST 12 LDS TRCG ONLY W/O I&R COMPREHEN 23206 [facility] SIVE 6 [facility] METABOLIC INC INC PANEL CREATINE 09723 [facility] KINASE MB 6 MEM HOS[facility] FRACTION INC INC ONLY CREATINE 02776 D[facility] KINASE 6 MEM HOS[facility] MEM [facility]OS[facility] TOTAL INC INC RADIOLOGI 51075 MALAIKA NICKELS C 6 MEDICAL TREY EXAMINATI SERV ON CHEST FOUNDATIO SINGLE N VIEW FRONTAL THROMBOPL 33269 [facility] D[facility] ASTIN 6 [facility] HOS[facility] TIME INC INC PARTIAL PLASMA/[place] [address] [facility] RIVERO HEAD/BRAI 6 MEDICAL N W/O IMAGING CONTRAST ASS MATERIAL MRI BRAIN 30448 MALAIKA RASLAU BRAIN 6 MEDICAL FLA STEM W/O SERV CONTRAST FOUNDATIO MATERIAL N INITIAL 04156 MALAIKA [facility] 6 MEDICAL JR LUT CARE/DAY SERV 30 FOUNDATIO MINUTES N ECG 78900 [facility] MEDICAL ECG SERV W/LEAST FOUNDATIO 12 LDS N I&R ONLY AMBULANCE A0428 [facility] SERVICE 6 AMBULANCE AMBULANCE BLS SERVICE [place] [address] MALAIKA ESCOTT ANGIOGRAP 6 MEDICAL EDW HY NECK SERV W/CONTRAS FOUNDATIO T/NONCONT N RAST AMB A0427 [facility] SERVICE 6 AMBULANCE AMBULANCE ALS SERVICE SERVICE EMERGENCY TRANSPORT LEVEL 1 BLOOD 91071 [facility] COUNT 6 [facility] COMPLETE INC INC AUTO&[place] [address] D[facility] TROPONIN 6 [facility] QUANTITAT INC INC CY GROUND A0425 [facility] MILEAGE 6 AMBULANCE AMBULANCE [place] [address] MALAIKA ESCOTT ANGIOGRAP 6 MEDICAL EDW HY HEAD SERV W/CONTRAS FOUNDATIO T/NONCONT N RAST PROTHROMB 19095 [facility] IN TIME 6 [facility] INC INC THERAPEUT 84791 [facility] IC 5 [facility] HOSP [facility] INJECTION INC INC IV PUSH EACH NEW DRUG RADIOLOGI 01976 [place] [facility] C EXAM 5 MEDICAL SANTI CHEST 2 IMAGING VIEWS ASS FRONTAL&[place] [address] [facility] INFUSION 5 [facility] THERAPY/P INC INC ROPHYLAXI S /DX 1ST TO 1 HR INJECTION J1100 [facility] RENTERIA 5 MARIE MARIE DEXAMETHO SONE SODIUM PHOSPHATE 1 MG RADEX 72318 [facility] RIVERO ALL WRIST 5 MEDICAL COMPLETE IMAGING MINIMUM 3 ASS VIEWS COLLECTIO 78137 DEXTER RENTERIA N VENOUS 5 MARIE MARIE BLOOD VENIPUNCT URE RADEX 20279 [place] JOSEFA ALL WRIST 5 MEDICAL COMPLETE IMAGING MINIMUM 3 ASS VIEWS RADIOLOGI 35703 [place] JOSEFA ALL C EXAM 5 MEDICAL CHEST 2 IMAGING VIEWS ASS FRONTAL&L ATERAL INJECTION J1100 DEXTER RENTERIA 5 MARIE MARIE DEXAMETHO SONE SODIUM PHOSPHATE 1 MG RADEX 69106 [place] RIVERO ALL WRIST 5 MEDICAL COMPLETE IMAGING MINIMUM 3 ASS VIEWS RADEX 97829 [place] KAILASH WRIST 5 MEDICAL TRAVIS COMPLETE IMAGING MINIMUM 3 ASS VIEWS CAST Q4022 [facility] SUPPLIES 5 PHYSICIAN PHYSICIAN SHORT ARM S GROUP S GROUP SPLINT ADULT FIBERGLAS S RADEX 57531 [place] JOSEFA ALL WRIST 5 MEDICAL COMPLETE IMAGING MINIMUM 3 ASS VIEWS O2 CONC 1 E1390 [facility] ALCANTAR DEL PORT 5 HOME HOME 85%/>02 MEDICAL MEDICAL CONC AT EQUIPME EQUIPME PRSC FLW RATE O2 CONC 1 E1390 [facility] ALCANTAR DEL PORT 5 HOME HOME 85%/>02 MEDICAL MEDICAL CONC AT EQUIPME EQUIPME PRSC FLW RATE ECG 64656 [place] BRETT CHI ROUTINE 5 MEDICAL ECG SERV W/LEAST FOUNDATIO 12 LDS N I&R ONLY O2 CONC 1 E1390 [facility] ALCANTAR DEL PORT 5 HOME HOME 85%/>02 MEDICAL MEDICAL CONC AT EQUIP[place] [address] [facility], SURG 5 [facility] PATHOLOGY GROSS&GENNARO ROSCOPIC EXAM O2 CONC 1 E1390 [facility] GALARZA PORT 5 HOME HOME 85%/>02 MEDICAL MEDICAL CONC AT EQUIPME EQUIPME PRSC FLW RATE O2 CONC 1 E1390 [facility] ALCANTAR DEL PORT 5 HOME HOME 85%/>02 MEDICAL MEDICAL CONC AT EQUIPME EQUIPME PRSC FLW RATE O2 CONC E1390 [facility] ALCANTAR DEL PORT 5 HOME HOME 85%/>02 MEDICAL MEDICAL CONC AT EQUIPME EQUIPME PRSC FLW RATE RADEX 51984 [place] KAILASH SPINE 5 MEDICAL TRAVIS LUMBOSACR IMAGING AL ASS MINIMUM 4 VIEWS O2 CONC 1 E1390 [...] AT EQUIPME EQUIPME PRSC FLW RATE THERAPEUT 71392 DEXTER RENTERIA JR IC 4 DWI DWI [...] AT EQUIPME EQUIPME PRSC FLW RATE THERAPEUT 04843 DEXTER RENTERIA JR IC 4 DWI DWI PROPHYLAC TIC/DX INJECTION SUBQ/IM INJECTION J1040 DEXTER LUBIN DEXTER JR 4 DWI DWI METHYLPRE DNISOLONE ACETATE 80 MG O2 CONC 1 E1390 [facility] ORTIZ DEL PORT 4 HOME HOME 85%/>02 MEDICAL MEDICAL CONC AT EQUIPME EQUIPME PRSC FLW RATE THERAPEUT 58773 DEXTER RENTERIA JR IC 4 DWI DWI PROPHYLAC TIC/DX INJECTION SUBQ/IM INJECTION J1100 DEXTER LUBIN DEXTER JR 4 DWI DWI DEXAMETHO SONE SODIUM PHOSPHATE 1 MG O2 CONC 1 E1390 ORTIZLACY ALCANTAR DEL PORT 4 HOME HOME 85%/>02 MEDICAL MEDICAL CONC AT EQUIPME EQUIPME PRSC FLW RATE O2 CONC 1 E1390 ORTIZLACY ALCANTAR DEL PORT 3 HOME HOME 85%/>02 MEDICAL MEDICAL CONC AT EQUIPME EQUIPME PRSC FLW RATE THERAPEUT 62152 DEXTER RENTERIA JR IC 3 DWI DWI [...] O2 CONC 1 E1390 [facility] GALARZA PORT 2 HOME HOME 85%/>02 MEDICAL MEDICAL [...] AT EQUIPME EQUIPME PRSC FLW RATE ECHO 85671 APRIL CHEN [facility] R-T 2 JR REYNA JR REYNA 2D W/WOM-MOD E COMPL SPEC&COLR D RADIOLOGI 16428 [facility] C EXAM 2 [facility] CHEST 2 INC INC VIEWS FRONTAL&L ATERAL RADIOLOGI 03470 [facility] DODGE C EXAM 2 [facility] CHEST 2 INC INC VIEWS FRONTAL&L ATERAL RADIOLOGI 25992 [facility] DODGE C EXAM 1 [facility] CHEST 2 INC INC VIEWS FRONTAL&L ATERAL INJECTION J1040 DEXTER RENTERIA JR 1 DWI DWI METHYLPRE DNISOLONE ACETATE 80 MG THERAPEUT 92692 DEXTER RENTERIA JR IC 1 DWI DWI PROPHYLAC TIC/DX INJECTION SUBQ/IM RADIOLOGI 05224 [facility] L[facility] C EXAM 1 MEDICAL TRAVIS CHEST 2 IMAGING VIEWS ASS FRONTAL&[place] [address] DAR DOD[facility] THYROID 1 [facility] STIMULATI INC INC NG HORMONE TSH COLLECTIO 40185 [facility] N VENOUS 1 [facility] BLOOD INC INC VENIPUNCT URE IIV 51237 DEXTER GUERRERO VACCINE 1 PRESERV FREE INCREASED AG CONTENT IM ADMINISTR G0008 DEXTER GUERRERO ATION OF 1 INFLUENZA VIRUS VACCINE PHRM Q0513 YOUR YOUR DISPENSIN 1 PHARMACY PHARMACY G FEE [employer] [facility] INHALATIO N RX; PER 30 DAYS ALBUTEROL J7620 YOUR YOUR TO 2.5 1 PHARMACY PHARMACY [facility] IPRATROPI UM BROM TO 0.5 MG ADMN SET A7003 YOUR YOUR SM VOL 1 PHARMACY PHARMACY NONFILTR [employer] PNEUMAT NEBULIZR DISPBL 3D 35730 [place] KAILASH RENDERING 1 MEDICAL TRAVIS IMAGING W/INTERP& [place] [address] [place] KAILASH ABDOMEN & 1 MEDICAL TRAVIS PELVIS IMAGING W/O ASS CONTRAST MATERIAL COLLECTIO 30157 D[facility] [place] N VENOUS 1 [facility] [place] [address] D[facility] D[facility] THYROID 1 [facility] STIMULATI INC INC NG HORMONE TSH NEBULIZER E0570 [facility] ALCANT[facility] WITH 1 HOME MED HOME MED COMPRESSO EQUIP. L EQUIP. L R NEBULIZER E0570 [facility] ALCANTAR WITH 1 HOME MED HOME MED COMPRESSO EQUIP. L EQUIP. L R NEBULIZER E0570 [facility] ALCANTAR WITH 1 HOME MED HOME MED COMPRESSO EQUIP. L EQUIP. L R COLLECTIO 19152 [facility] N VENOUS 1 [facility] [place] [address] D[facility] THYROID 1 [facility] STIMULATI INC INC NG HORMONE TSH POTASSIUM 20469 [facility] SERUM 1 [facility] PLASMA/WH INC INC OLE BLOOD NEBULIZER E0570 [facility] ALCANTAR WITH 1 HOME MED HOME MED COMPRESSO EQUIP. L EQUIP. L R RADIOLOGI 67159 [place] KAILASH C EXAM 0 MEDICAL TRAVIS CHEST 2 IMAGING VIEWS ASS FRONTAL&L ATERAL NEBULIZER E0570 [facility] ALCANT[facility] WITH 0 HOME MED HOME MED COMPRESSO EQUIP. L EQUIP. L R URNLS DIP 44237 DEXTER RENTERIA DWI 0 STICK/TAB LET RGNT NON-AUTO W/O MICRSCP NEBULIZER E0570 [facility] ALCANT[facility] WITH 0 HOME MED HOME MED COMPRESSO EQUIP. L EQUIP. L R PHRM Q0513 YOUR YOUR DISPENSIN 0 PHARMACY PHARMACY G FEE [facility] INHALATIO N RX; PER 30 DAYS ADMN SET [id number] YOUR YOUR SM VOL 0 PHARMACY PHARMACY NONFILTR [facility] PNEUMAT NEBULIZR DISPBL ALBUTEROL J7620 YOUR YOUR TO 2.5 0 PHARMACY PHARMACY [facility] IPRATROPI UM BROM TO 0.5 MG OPHTH 92992 [facility] MEDICAL 0 XM&EVAL COMPRHNSV ESTAB PT 1/> NEBULIZER E0570 ORTIZ ALCANTAR WITH 0 HOME MED HOME MED COMPRESSO EQUIP. L EQUIP. L R 3D 76669 DAR DODGE RENDERING 0 [facility] W/INTERP INC [place] & [place] [address] [place] HEAD/BRAI 0 MEDICAL TRAVIS N W/O & IMAGING W/CONTRAS ASS T MATERIAL COLLECTIO 47490 DAR DODGE N VENOUS 0 [facility] BLOOD INC INC VENIPUNCT URE BASIC 10247 DAR DODGE METABOLIC 0 [facility] PANEL INC INC CALCIUM TOTAL THERAPEUT 71417 DEXTER RENTERIA DWI IC 0 PROPHYLAC TIC/DX INJECTION SUBQ/IM IIV3 76036 DEXTER RENTERIA DWI VACCINE 0 SPLIT VIRUS 0.5 ML DOSAGE IM USE NEBULIZER E0570 ORTIZ ALCANTAR WITH 0 HOME MED HOME MED COMPRESSO EQUIP. L EQUIP. L R NEBULIZER E0570 ORTIZ ALCANTAR WITH 0 HOME MED HOME MED COMPRESSO EQUIP. L EQUIP. L R COLLECTIO 71770 DAR DODGE N VENOUS 0 [facility] BLOOD INC INC VENIPUNCT URE POTASSIUM 93732 DAR DODGE SERUM 0 [facility] PLASMA/WH INC INC OLE BLOOD BLOOD 12294 COMBINED COMBINED COUNT 0 PHYSICIAN PHYSICIAN COMPLETE S LA S LA AUTO&AUTO DIFRNTL WBC COLLECTIO 31695 DEXTER GUERRERO DEXTER DWI N VENOUS 0 BLOOD VENIPUNCT URE BASIC 82231 COMBINED COMBINED METABOLIC 0 PHYSICIAN PHYSICIAN PANEL S LA S LA CALCIUM TOTAL LIPID 73452 COMBINED COMBINED PANEL 0 [place] [address] COMBINED COMBINED THYROID 0 PHYSICIAN PHYSICIAN STIMULATI S LA S LA NG HORMONE TSH TRANSFERA 91641 COMBINED COMBINED SE 0 PHYSICIAN PHYSICIAN ALANINE S LA S LA AMINO ALT SGPT NEBULIZER E0570 ORTIZ ALCANTAR WITH 0 HOME MED HOME MED COMPRESSO EQUIP. EQU[facility]. [facility] NEBULIZER E0570 ORTIZ ALCANTAR WITH 0 HOME MED HOME MED COMPRESSO EQUIP. EQUIP. R [facility] NEBULIZER E0570 ORTIZ LUNDBERGRELL WITH 0 HOME MED HOME MED COMPRESSO EQUIP. EQUIP. R [facility] PRESSURIZ 32807 DAR DODGE ED/NONPRE 0 [facility] SSURIZED INC INC INHALATIO N TREATMENT BRNCDILAT 67775 DAR DODGE RSPSE 0 [facility] SPMTRY INC INC PRE&POST- BRNCDILAT ADMN ECG 67488 DAR HUERTAMIThao ROUTINE [address] [facility] W/LEAST PROF SERV 12 LDS I&R ONLY THER 61755 DAR DODGE PROPH/DX 0 [facility] NJX IV INC INC PUSH SINGLE/1S T SBST/DRUG CREATINE 61246 DAR DODGE KINASE 0 [facility] TOTAL INC INC AMB [id number] [facility] SERVICE 0 AMBULANCE AMBULANCE ALS SERVICE SERVICE EMERGENCY TRANSPORT LEVEL 1 RADIOLOGI 42246 Sally BETANCUR 0 MEDICAL FIDENCIO EXAMINATI IMAGING ON CHEST ASSOCIATE SINGLE S VIEW FRONTAL ECG 32427 DAR DODGE ROUTINE 0 [facility] ECG INC INC W/LEAST 12 LDS TRCG ONLY W/O I&R CREATINE 25969 DAR DODGE KINASE MB 0 [facility] FRACTION INC INC ONLY COMPREHEN 66283 DAR DODGE [facility] METABOLIC INC INC PANEL BLOOD 68986 [facility] DODGE COUNT 0 [facility] COMPLETE INC INC AUTO&[place] [address] DAR DODGE TROPONIN 0 [facility] QUANTITAT INC INC CY GROUND [id number] [facility] MILEAGE 0 AMBULANCE AMBULANCE PER SERVICE SERVICE STATUTE MILE ADMN SET A7003 ORTIZ ALCANTAR SM VOL 0 HOME MED HOME MED NONFILTR EQUIP. EQUIP. PNEUMAT [employer] [facility] NEBULIZR DISPBL NEBULIZER [id number] ORTIZ ALCANTAR WITH 0 HOME MED HOME MED COMPRESSO EQUIP. EQUIP. R [employer] PHARM [id number] YOUR YOUR DISPEN 0 PHARMACY PHARMACY FEE INHAL [employer] [facility] RX; INITIAL 30-DAY SUPPLY ADMN SET [id number] YOUR YOUR SM VOL 0 PHARMACY PHARMACY NONFILTR [employer] PNEUMAT NEBULIZR DISPBL ALBUTEROL J7620 YOUR YOUR TO 2.5 0 PHARMACY PHARMACY [employer] [facility] IPRATROPI UM BROM TO 0.5 MG INJECTION J1040 DEXTER RENTERIA, 0 MARIE E MARIE E METHYLPRE DNISOLONE ACETATE 80 MG THERAPEUT 81941 DEXTER RENTERIA, IC 0 MARIE E MARIE E PROPHYLAC TIC/DX INJECTION SUBQ/IM RADEX 56628 DAR DODGE SPINE 9 [facility] LUMBOSACR INC INC AL MINIMUM 4 VIEWS ADMINISTR G0008 DEXTER RENTERIA, ATION OF 9 MARIE E MARIE E INFLUENZA VIRUS VACCINE IIV3 51701 DEXTER RENTERIA, VACCINE 9 MARIE E MARIE E SPLIT VIRUS 0.5 ML DOSAGE IM USE THERAPEUT 89662 DEXTER RENTERIA, IC 9 MARIE E MARIE E PROPHYLAC TIC/DX INJECTION SUBQ/IM INJECTION J1040 DETXER RENTERIA, 9 MARIE E MARIE E METHYLPRE DNISOLONE ACETATE 80 MG INJECTION J1040 DEXTER RENTERIA, 9 MARIE E MARIE E METHYLPRE DNISOLONE ACETATE 80 MG INJECTION J1040 DEXTER RENTERIA, 9 MARIE E MARIE E METHYLPRE DNISOLONE ACETATE 80 MG URNLS DIP 87554 DEXTER RENTERIA, 9 MARIE E MARIE E STICK/TAB LET RGNT NON-AUTO W/O MICRSCP ECG 59943 DEXTER RENTERIA, ROUTINE 9 MARIE E MARIE E ECG W/LEAST 12 LDS W/I&R SCR G0123 AMERIPATH AMERIPATH CYTOPATH 9 [facility] CERV/VAG INC INC SCR CYTOTECH UND PHYS SUPV COLLECTIO 59032 DEXTER RENTERIA N VENOUS 9 MARIE E MARIE E BLOOD VENIPUNCT URE BASIC 46939 COMBINED COMBINED METABOLIC 9 PHYSICIAN PHYSICIAN PANEL S LAB S LAB CALCIUM TOTAL LIPID 53155 COMBINED COMBINED PANEL 9 PHYSICIAN PHYSICIAN S LAB S LAB TRANSFERA 24022 COMBINED COMBINED SE 9 PHYSICIAN PHYSICIAN ALANINE S [place] [address] COMBINED COMBINED THYROID 9 PHYSICIAN PHYSICIAN STIMULATI S LAB S LAB NG HORMONE TSH BLOOD 32405 DEXTER RENTERIA, OCCULT 9 MARIE E MARIE E PEROXIDAS E ACTV QUAL FECES 1 DETER BLOOD 01288 COMBINED COMBINED COUNT 9 PHYSICIAN PHYSICIAN COMPLETE S LAB S LAB AUTO&AUTO DIFRNTL WBC ADMINISTR G0008 DEXTER RENTERIA, ATION OF 8 MARIE E MARIE E INFLUENZA VIRUS VACCINE IIV3 68670 DEXTER RENTERIA, VACCINE 8 MARIE E MARIE E SPLIT VIRUS 0.5 ML DOSAGE IM USE INJECTION J1040 DEXTER RENTERIA, 8 MARIE E MARIE E METHYLPRE DNISOLONE ACETATE 80 MG Encounters Encounter Start End Date Code Location Performer Type Date [facility] DAR - 6 6 [facility] - 6 6 [facility] 39582 [facility]AR 6 6 [facility] T VISIT [facility]OW/MODER SEVERITY HOSPITAL UNIVERSIT - 6 6 [facility] T OFFICE 92236 [facility] [address] [place] [facility] 6 6 MEDICAL JR [facility] VISIT SERV HIGH FOUNDATIO SEVERITY& N THREAT FUN EMERGENCY 26995 DAR 6 [address] [facility] T VISIT HIGH/URGE NT SEVERITY [facility] DAR - 6 6 [facility] 36867 DEXTER RENTERIA JR [facility] 6 6 MARIE DWI T VISIT 15 MINUTES OFFICE 34780 DEXTER RENTERIA JR [facility] 5 5 MARIE DWI T VISIT 15 MINUTES HOSPITAL DAR - 5 5 [facility] - 5 5 [facility] - 5 5 [facility] - 5 5 [facility] - 5 5 [facility] - 5 5 [facility] 91968 DEXTER RENTERIA [facility] 5 5 MARIE DWI T VISIT 15 MINUTES HOSPITAL DAR - 5 5 [facility] OFF[facility] 49648 [facility] RENTERIA [facility]I DWI T [facility]ISIT 10 MINUTES HOSPITAL [facility]AR - 2 2 [facility] D[facility] - 2 2 [facility] 92624 DEXTER JR DEXTER JR OUTPATIEN 2 2 DWI DWI T VISIT 15 MINUTES HOSPITAL DAR - 2 2 [facility] T HOSPITAL [facility]AR - 1 1 [facility] T OFFICE 00014 DEXTER DWI EDXTER DWI OUTPATIEN 1 1 T VISIT 15 MINUTES HOSPITAL DAR - 1 1 [facility] T OFFICE 66074 DEXTER DWI DEXTER DWI OUTPATIEN 1 1 T VISIT 15 MINUTES HOSPITAL DAR - 1 1 [facility] 96814 DEXTER DWI DEXTER DWI OUTPATIEN 1 1 T VISIT 15 MINUTES [facility] DAR - 1 1 [facility] 88700 DEXTER DWI DEXTER DWI OUTPATIEN 1 1 T VISIT 15 MINUTES HOSPITAL DAR - 0 0 [facility] 83300 DEXTER DWI DEXTER DWI OUTPATIEN 0 0 T VISIT 15 MINUTES HOSPITAL [facility]AR - 0 0 [facility] 67995 DEXTER DWI DEXTER DWI OUTPATIEN 0 0 T VISIT 15 MINUTES HOSPITAL DAR - 0 0 [facility] T OFFICE 49144 DEXTER, DEXTER, OUTPATIEN 0 0 MARIE E MARIE E T VISIT 15 MINUTES HOSPITAL DAR - 0 0 [facility] T OFFICE 08654 DEXTER, DEXTER, OUTPATIEN 0 0 MARIE E MARIE E T VISIT 15 MINUTES EMERGENCY 28874 DAR 0 0 [facility] T VISIT HIGH/URGE NT SEVERITY EMERGENCY 13296 SKYLA TRUONG, DEPT 0 0 EMERGENCY AMINAH S VISIT SERVICES HIGH SEVERITY& ASSOCIATE THREAT S [facility] DAR - 0 0 [facility] OUTPATIEN INC T OFFICE 12987 DEXTER RENTERIA OUTPATIEN 0 0 MARIE E MARIE E T VISIT 15 MINUTES OFFICE 29547 DEXTER RENTERIA OUTPATIEN 0 0 MARIE E MARIE E T VISIT 15 MINUTES HOSPITAL DAR - 9 9 [facility] INC T OFFICE 96378 DEXTER RENTERIA OUTPATIEN 9 9 MARIE E MARIE E T VISIT 15 MINUTES OFFICE 33896 [facility] OUTPATIEN 9 9 MARIE E MARIE E T VISIT 15 MINUTES OFFICE 48466 [facility] OUTPATIEN 9 9 MARIE E MARIE E T VISIT 15 MINUTES OFFICE 50727 [facility]ENTER[facility] OUTPATIEN 9 9 MARIE E MARIE E T VISIT 15 MINUTES OFFICE 14047 DEX[facility] RENTERIA OUTPATIEN 9 9 MARIE E MARIE E T VISIT 15 MINUTES OFFICE 93219 [place]QUE [address] [facility] NEW[facility] PATIENT 15 MIN OFFICE 70132 DEXTER RENTERIA OUTPATIEN 9 9 MARIE E MARIE E T VISIT 15 MINUTES OFFICE 92392 [facility] RENTERIA OUTPATIEN 9 9 MARIE E MARIE E T VISIT 25 MINUTES OFFICE 60398 [facility] RENTER[facility] OUTPATIEN 9 9 MARIE E MARIE E T VISIT 15 MINUTES OFFICE 20480 DEX[facility] RENTERIA OUTPATIEN 9 9 MARIE E MARIE E T VISIT 15 MINUTES OFFICE 62406 [facility] RENTER[facility] OUTPATIEN 8 8 MARIE E AMRIE E T VISIT 15 MINUTES OFFICE 79206 [facility] RENTER[facility] OUTPATIEN 8 8 MARIE E MARIE E T VISIT 15 MINUTES OFFICE 93775 [facility] RENTER[facility] OUTPATIEN 8 8 MARIE E MARIE E T VISIT 15 MINUTES OFFICE 45423 [facility]ENTER[facility] OUTPATIEN 8 8 MARIE E MARIE E T VISIT 15 MINUTES OFFICE 02080 DEXTER RENTERIA OUTPATIEN 8 8 MARIE E MARIE E T VISIT 15 MINUTES
--- OUTSIDE RECORDS SUMMARY | 2016-12-05 22:27 | External Medical Summary Rpt ---
Author Author , Organization [employer] Address Unknown Phone Unavailable Care Team Providers Care Lamp Shade Joiner Name Role Phone [facility] Unavailable Unavailable INC, [facility] BEINEKE SANTI, BEINEKE Unavailable Unavailable SANTI RIVERO, RIVERO Unavailable Unavailable RIVERO ALL, RIVERO ALL Unavailable Unavailable [facility] Unavailable Unavailable SERVICE, [employer] Unavailable Unavailable SERVICE, [employer] [facility] Un[facility] Unavailable [place], [facility] Unavailable Unavailable [facility], [facility] Unavailable Unavailable LAB, [facility] KAILASH TRAVIS, Unavailable Unavailable KAILASH TRAVIS KAILASHFIDENCIO ZHANG, Unavailable Unavailable KAILASH, FIDENCIO CAMILO MELBA, CAMILO MELBA Unavailable Unavailable [facility] Unavailable [place]available [place], [facility] [place] [facility] Un[place] [facility] ECKERLINE JR HANANE, Unavailable Unavailable ECKERLINE JR HANANE ESCOTT EDW, ESCOTT Unavailable Unavailable EDW AMINAH TRUONG, Unavailable Unavailable AMINAH TRUONG [facility] Unavailable Unavailable INC, [facility] Unavailable Unavailable HOSPITAL P, [facility] BENNETT AMY, BENNETT AMY Unavailable Unavailable BENNETT AMY, BENNETT AMY Unavailable Unavailable [facility], Unavailable Unavailable [facility] Unavailable Unavailable [facility], [facility] Unavailable Unavailable [facility], [facility], [facility] Unavailable [...] JOSE BREAUX, Unavailable Unavailable JOSE BREAUX H [facility], Unavailable Unavailable [facility] Unavailable Unavailable [facility], [facility], Unavailable Unavailable [facility] Purpose Continuity of Care Document - 09-15-2007 through 2016 Problems Code Diagnosis DOS Provider Status J449 CHRONIC 09-13-2016 [facility] OBSTRUCTIVE [place] PULMONARY MEDICAL DISEASE UNS EQUIPME E039 HYPOTHYROID 05-25-2016 [facility] I10 ESSENTIAL 05-25-2016 [place] [facility] HYPERTENSIO IM[facility]ING ASS N R079 CHEST PAIN 05-25-2016 [place] UNSPECIFIED [facility] [id number] LACERATION 04-26-2016 [facility] W/O FOREIGN [facility] BODY RT INC FOREARM INITIAL [id number] APHASIA 01-23-2016 [facility] CEREBRAL INFARCTION V96969 DYSPHASIA 01-23-2016 [facility] CEREBRAL INFARCTION R201 HYPOESTHESI 01-23-2016 [facility] Z09 ENC F/U 01-23-2016 [facility] EX[facility]OSPITAL CMPL TX OTH THAN MAL NEOPLSM T35018 CELLULITIS 12-24-2015 [facility] I361 NONRHEUMATI 12-16-2015 [facility] TRICUSPID SERV [facility] INSUFFICIEN CY R1310 DYSPHAGIA 12-16-2015 [facility] HOSPI G8191 HEMIPLEGIA 12-15-2015 [facility] AFFECTING SERVICE RIGHT DOMINANT SIDE I493 VENTRICULAR 12-15-2015 [facility] PREMATURE [facility] DEPOLARIZAT [facility]OUNDATION ION N91685 CEREBRAL 12-15-2015 [facility] INFARCT D/T SERV THROMB LT FOUNDATION [...] FOLLOWING SERVICE CEREBRAL INFARCTION J349 UNSPECIFIED 12-15-2015 [facility] DISORDER SERV OF NOSE AND FOUNDATION NASAL SINUSES R200 ANESTHESIA 12-15-2015 [facility] SKIN MEDICAL IMAGING ASS W76213 FACIAL 12-15-2015 [facility] WEAKNESS [facility] INC R4701 APHASIA 12-15-2015 [facility] R479 UNSPECIFIED 12-15-2015 [facility] SPEECH SERV DISTURBANCE [facility]OUND[facility] S R531 WEAKNESS 12-15-2015 [facility] Z720 TOBACCO USE 12-15-2015 [facility] INC J209 ACUTE 08-11-2015 D[facility]TER BRONCHITIS MARIE UNSPECIFIED Z6822 BODY MASS 08-11-2015 [facility] INDEX BMI MARIE 22.0-22.9 ADULT J441 CHRONIC 07-25-2015 D[facility] OBSTRUCTIVE MARIE PULMONARY DZ W/EXACERBAT ION J440 COPD WITH 07-21-2015 [facility] ACUTE LOWER [facility] INC RESPIRATORY INFECTION R05 COUGH 07-21-2015 [facility] [id number] UNS FX 05-27-2015 [place] LOWER RT MEDICAL RADIUS IMAGING ASS SUBSQT ENC CLOS FX RTN [id number] OTH 05-27-2015 [facility] EXTRAARTIC [facility] FX LOW RT INC [...] INC FRACTURE LOWER ARM V5419 AFTERCARE 04-25-2015 [place] HEALING [facility]ICAL TRAUMATIC IMAGING ASS FRACTURE OTHER BONE 4660 ACUTE 04-18-2015 [facility] BRONCHITIS MARIE 14863 OBSTRUCTIVE 04-18-2015 DEXTER CHRONIC MARIE BRONCHITIS WITH EXACERBATIO N 42781 FEVER 04-18-2015 [place] UNSPECIFIED MEDICAL IMAGING ASS V851 BODY MASS 04-18-2015 [facility] INDEX MARIE BETWEEN 19-24 ADULT 22375 PAIN IN 03-20-2015 [place] JOINT, MEDICAL FOREARM IMAGING ASS 496 CHRONIC 01-17-[address] [facility] OBSTRUCTION MEDICAL NEC EQUIPME 4019 UNSPECIFIED 11-27-2014 [facility] ESSENTIAL SERV HYPERTENSIO FOUNDATION N 87972 OTHER 11-27-2014 [place] [facility] SPECIFIED SERV CARDIAC FOUNDATION DYSRHYTHMIA S 1844 MALIGNANT 10-25-2014 [facility], NEOPLASM OF LLC VULVA UNSPECIFIED SITE 7213 LUMBOSACRAL 08-16-2014 [place] [facility] SPONDYLOSIS IMAGING ASS WITHOUT MYELOPATHY 7242 LUMBAGO 08-16-2014 DEXTER MARIE 7384 ACQUIRED 08-16-2014 [place] SPONDYLOLIS MEDICAL THESIS [facility]AGING ASS 8472 LUMBAR 08-16-2014 DEXTER SPRAIN AND MARIE STRAIN V8522 BODY MASS 08-16-2014 [facility] INDEX MARIE 26.0-26.9 ADULT 4169 UNSPECIFIED 02-26-2014 DEXTER JR CHRONIC DWI PULMONARY HEART DISEASE 75985 HEMATOMA 10-31-2013 DEXTER JR COMPLICATIN DWI G A PROCEDURE NEC 460 ACUTE 07-10-2013 DEXTER JR NASOPHARYNG DWI ITIS 7823 EDEMA 01-26-2012 APRIL LUBIN REYNA 2449 UNSPECIFIED 01-24-2012 DEXTER JR DWI HYPOTHYROID ISM 486 PNEUMONIA, 11-12-2011 [facility] ORGANISM [facility] UNSPECIFIED INC 58237 OTHER 11-12-2011 [place] DISEASES OF MEDICAL LUNG NOT IMAGING ASS ELSEWHERE CLASSIFIED 5180 PULMONARY 2011 [place] COLLAPSE [facility]ICAL IMAGING ASS 5183 PULMONARY 2011 [place] EOSINOPHILI MEDICAL A IMAGING ASS 5110 PLEURISY 07-26-2011 [facility] WITHOUT [facility] MENTION INC EFFUS/CURRE NT TB V0481 NEED 04-20-2011 DEXTER DWI PROPHYLACTI C VACCINATION &INOCULATIO N FLU 79293 ABDOMINAL 12-19-2010 [place] PAIN, MEDICAL UNSPECIFIED IMAGING ASS SITE 48062 OTHER 12-14-2010 DEXTER DWI CHRONIC OTITIS EXTERNA 2767 HYPERPOTASS 09-03-2010 [facility] EMIA [facility] INC 684 IMPETIGO 08-21-2010 DEXTER DWI 5990 URINARY 07-17-2010 DEXTER DWI TRACT INFECTION SITE NOT SPECIFIED 18805 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 UNSPECIFIED 7840 HEADACHE 05-06-2010 [facility] 2724 OTHER AND 03-02-2010 DEXTER DWI UNSPECIFIED HYPERLIPIDE SUNITA 3569 UNSPEC 03-02-2010 DEXTER DWI HEREDIT&IDI OPATHIC PERIPHERAL NEUROPATHY 12374 OTHER 03-02-2010 DEXTER DWI SPECIFIED CIRCULATORY SYSTEM DISORDERS V5869 LONG-TERM 03-02-2010 [facility] (CURRENT) PHYSICIANS USE OF [place] OTHER MEDICATIONS 33993 CRAMP OF 02-24-2010 DEXTER, LIMB MARIE E 08949 SHORTNESS 11-21-2009 [facility] 07142 OTHER 11-21-2009 [facility] DYSPNEA AND AMBULANCE [place] [address] ACUT 10-03-2009 DEXTER, SUPPRATV MARIE E OTITIS MEDIA W/O SPONT RUP EARDRUM 4610 ACUTE 10-03-2009 DEXTER, MAXILLARY MARIE E SINUSITIS 6961 OTHER 12-24-2008 NEW PSORIASIS [facility] DISORDERS 6983 LICHENIFICA 12-24-2008 NEW TION AND [facility] SIMPLEX CHRONICUS 6272 SYMPTOMATIC 10-29-2008 DEXTER, MARIE E MENOPAUSAL/ FEMALE CLIMACTERIC STATES V1589 OTH SPEC 10-29-2008 [facility] PERS HX [place] PRESENTING INC HAZARDS HEALTH OTH V762 SCREENING 10-29-2008 [facility] FOR [place] MALIGNANT INC NEOPLASM OF THE CERVIX V812 SCREENING 10-29-2008 DEXTER, OTHER&UNSPE MARIE E C CARDIOVASCU LAR CONDITIONS 38865 UNSPECIFIED 10-01-2008 DEXTER, INFECTIVE MARIE E OTITIS EXTERNA 7856 ENLARGEMENT 07-17-2008 DEXTER, OF LYMPH MARIE E NODES 24017 UNSPECIFIED 03-01-2008 DEXTER, GANGLION MARIE E Medications [...] 85%/>02 MEDICAL MEDICAL CONC AT EQUIPME EQUIPME [facility] FLW RATE COLLECTIO 26384 DAR DODGE N VENOUS 6 [facility] BLOOD INC INC VENIPUNCT URE ECG 70310 DAR DODGE ROUTINE 6 [facility] ECG INC INC W/LEAST 12 LDS TRCG ONLY W/O I&R ECG 58348 DAR RENTERIA JR ROUTINE 6 [facility] W/LEAST P 12 LDS I&R ONLY BASIC 82466 DAR DODGE METABOLIC 6 [facility] [place] [address] DAR DODGE THYROID 6 [facility] STIMULATI INC INC NG HORMONE TSH RADIOLOGI 18926 [facility] EXAM 6 MEDICAL TRAVIS CHEST 2 IMAGING VIEWS ASS FRONTAL&[place] [address] DAROK DODGE TROPONIN 6 [facility] QUANTITAT INC INC CY SIMPLE 23009 DAR DODGE REPAIR 6 [facility] SCALP/NEC INC INC K/AX/KARINA T/TRUNK 2.5CM/< HOSPITAL G0463 [facility] 6 Y Y T [facility] HOSPITAL VISIT ASSESS & MGMT PT SBSQ 84804 [facility] 6 MEDICAL JR LUT CARE/DAY SERV 25 FOUNDATIO MINUTES N ECHO 99496 [facility]-T 6 MEDICAL 2D SERV W/WOM-MOD FOUNDATIO E COMPL N SPEC&COLR D SWALLOWIN 17282 [facility] 6 Y OF CAR W/CINERAD [place] IOGRAPY/V HOSPI IDRADIOG ECG 18611 DAR DODGE ROUTINE 6 [facility] ECG INC INC W/LEAST 12 LDS TRCG ONLY W/O I&R COMPREHEN 55561 [facility] SIVE 6 [facility] METABOLIC INC INC PANEL CREATINE 38138 DAR DODGE KINASE MB 6 [facility] FRACTION INC INC ONLY CREATINE 54534 D[facility] DOD[facility] KINASE 6 [facility] TOTAL INC INC RADIOLOGI 86988 MALAIKA NICKELS C 6 MEDICAL TREY EXAMINATI SERV ON CHEST FOUNDATIO SINGLE N VIEW FRONTAL THROMBOPL 62326 [facility] DODGE ASTIN 6 [facility] TIME INC INC PARTIAL PLASMA/[place] [address] HO[facility] RIVERO HEAD/BRAI 6 MEDICAL N W/O IMAGING CONTRAST ASS MATERIAL MRI BRAIN 65560 MALAIKA RASLAU BRAIN 6 MEDICAL FLA STEM W/O SERV CONTRAST FOUNDATIO MATERIAL N INITIAL 28735 MAL[facility]KA [facility] 6 MEDICAL JR LUT CARE/DAY SERV 30 FOUNDATIO MINUTES N ECG 08727 [facility] MEDICAL ECG SERV W/LEAST FOUNDATIO 12 LDS N I&R ONLY AMBULANCE A0428 [facility] SERVICE 6 AMBULANCE AMBULANCE BLS SERVICE [place] [address] MALAIKA ESCOTT ANGIOGRAP 6 MEDICAL EDW HY NECK SERV W/CONTRAS FOUNDATIO T/NONCONT N RAST AMB A0427 [facility] SERVICE 6 AMBULANCE AMBULANCE ALS SERVICE SERVICE EMERGENCY TRANSPORT LEVEL 1 BLOOD 94688 DAR DODGE COUNT 6 [facility] COMPLETE INC INC AUTO&[place] [address] DAR DODGE TROPONIN 6 [facility] QUANTITAT INC INC CY GROUND A0425 [facility] MILEAGE 6 AMBULANCE AMBULANCE [place] [address] MALAIKA ESCOTT ANGIOGRAP 6 MEDICAL EDW HY HEAD SERV W/CONTRAS FOUNDATIO T/NONCONT N RAST PROTHROMB 02707 [facility] DODGE IN TIME 6 [facility] INC INC THERAPEUT 05903 DAR DODGE IC 5 [facility] H[facility] INJECTION INC INC IV PUSH EACH NEW DRUG RADIOLOGI 59143 [place] [facility] EXAM 5 MEDICAL SANTI CHEST 2 IMAGING VIEWS ASS FRONTAL&[place] [address] DAR DODGE INFUSION 5 [facility] THERAPY/P INC INC ROPHYLAXI S /DX 1ST TO 1 HR INJECTION J1100 DEXTER RENTERIA 5 MARIE MARIE DEXAMETHO SONE SODIUM PHOSPHATE 1 MG RADEX 90730 [facility] RIVERO ALL WRIST 5 MEDICAL COMPLETE IMAGING MINIMUM 3 ASS VIEWS COLLECTIO 12313 DEXTER RENTERIA N VENOUS 5 MARIE MARIE BLOOD VENIPUNCT URE RADEX 87343 [place] JOSEFA ALL WRIST 5 MEDICAL COMPLETE IMAGING MINIMUM 3 ASS VIEWS RADIOLOGI 82728 [place] JOSEFA ALL C EXAM 5 MEDICAL CHEST 2 IMAGING VIEWS ASS FRONTAL&L ATERAL INJECTION J1100 DEXTER RENTERIA 5 MARIE MARIE DEXAMETHO SONE SODIUM PHOSPHATE 1 MG RADEX 48378 [place] RIVERO ALL WRIST 5 MEDICAL COMPLETE IMAGING MINIMUM 3 ASS VIEWS RADEX 93599 [place] KAILASH WRIST 5 MEDICAL TRAVIS COMPLETE IMAGING MINIMUM 3 ASS VIEWS CAST Q4022 [facility] SUPPLIES 5 PHYSICIAN PHYSICIAN SHORT ARM S GROUP S GROUP SPLINT ADULT FIBERGLAS S RADEX 66462 [place] JOSEFA ALL WRIST 5 MEDICAL COMPLETE IMAGING MINIMUM 3 ASS VIEWS O2 CONC 1 E1390 [facility] ALCANTAR [place] 5 HOME HOME 85%/>02 MEDICAL MEDICAL CONC AT EQUIPME EQUIPME PRSC FLW RATE O2 CONC 1 E1390 [facility] ALCANTAR [place] 5 HOME HOME 85%/>02 MEDICAL MEDICAL CONC AT EQUIPME EQUIPME PRSC FLW RATE ECG 80183 [place] BRETT CHI ROUTINE 5 MEDICAL ECG SERV W/LEAST FOUNDATIO 12 LDS N I&R ONLY O2 CONC 1 E1390 [facility] ALCANTAR [place] 5 HOME HOME 85%/>02 MEDICAL MEDICAL CONC AT [place]QU[place] [address] [facility], SURG 5 [facility] PATHOLOGY GROSS&GENNARO ROSCOPIC EXAM O2 CONC 1 [...] AT EQUIPME EQUIPME PRSC FLW RATE RADEX 72782 [place] KAILASH SPINE 5 MEDICAL TRAVIS LUMBOSACR IMAGING [...] AT EQUIPME EQUIPME PRSC FLW RATE THERAPEUT 62732 DEXTER RENTERIA JR IC 4 DWI DWI [...] AT EQUIPME EQUIPME PRSC FLW RATE THERAPEUT 10564 DEXTER RENTERIA JR IC 4 DWI DWI PROPHYLAC TIC/DX INJECTION SUBQ/IM INJECTION J1040 DEXTER LUBIN DEXTER JR 4 DWI DWI METHYLPRE DNISOLONE ACETATE 80 MG O2 CONC 1 E1390 [facility] ORTIZ [place] 4 HOME HOME 85%/>02 MEDICAL MEDICAL CONC AT EQUIPME EQUIPME PRSC FLW RATE THERAPEUT 73063 DEXTER RENTERIA JR IC 4 DWI DWI [...] AT EQUIPME EQUIPME PRSC FLW RATE THERAPEUT 94554 DEXTER RENTERIA JR IC 3 DWI DWI [...] AT EQUIPME EQUIPME PRSC FLW RATE ECHO 98167 [facility] R-T 2 JR REYNA JR REYNA 2D W/WOM-MOD E COMPL SPEC&COLR D RADIOLOGI 49260 DAR DODGE C EXAM 2 [facility] CHEST 2 INC INC VIEWS FRONTAL&L ATERAL RADIOLOGI 49722 DAR DODGE C EXAM 2 [facility] CHEST 2 INC INC VIEWS FRONTAL&L ATERAL RADIOLOGI 59597 DAR DODGE C EXAM 1 [facility] CHEST 2 INC INC VIEWS FRONTAL&L ATERAL INJECTION J1040 DEXTER RENTERIA JR 1 DWI DWI METHYLPRE DNISOLONE ACETATE 80 MG THERAPEUT 98227 DEXTER RENTERIA JR IC 1 DWI DWI PROPHYLAC TIC/DX INJECTION SUBQ/IM RADIOLOGI 14288 HOLLY LINDER C EXAM 1 MEDICAL TRAVIS CHEST 2 IMAGING VIEWS ASS FRONTAL&[place] [address] DAR DODGE THYROID 1 [facility] STIMULATI INC INC NG HORMONE TSH COLLECTIO 91763 DAR DODGE N VENOUS 1 [facility] BLOOD INC INC VENIPUNCT URE IIV 07278 DEXTER GUERRERO VACCINE 1 PRESERV FREE INCREASED AG CONTENT IM ADMINISTR G0008 DEXTER GUERRERO ATION OF 1 INFLUENZA VIRUS VACCINE PHRM Q0513 YOUR YOUR DISPENSIN 1 PHARMACY PHARMACY G FEE [employer] INHALATIO N RX; PER 30 DAYS ALBUTEROL J7620 YOUR YOUR TO 2.5 1 PHARMACY PHARMACY [employer] IPRATROPI UM BROM TO 0.5 MG ADMN SET A7003 YOUR YOUR SM VOL 1 PHARMACY PHARMACY NONFILTR [employer] PNEUMAT NEBULIZR DISPBL 3D 05198 [place] [facility]AILASH RENDERING 1 MEDICAL TRAVIS IMAGING W/INTERP& [place] [address] [place] [facility]AIL[facility] ABDOMEN & 1 MEDICAL TRAVIS PELVIS IMAGING W/O ASS CONTRAST MATERIAL COLLECTIO 19624 DAR BULLON N VENOUS 1 [facility] [place] [address] DAR DODGE THYROID 1 [facility] STIMULATI INC INC NG HORMONE TSH NEBULIZER E0570 [facility] ALCANTAR WITH 1 HOME MED HOME MED COMPRESSO EQUIP. L EQUIP. L R NEBULIZER E0570 [facility] ALCANTAR WITH 1 HOME MED HOME MED COMPRESSO EQUIP. L EQUIP. L R NEBULIZER E0570 [facility] ALCANTAR WITH 1 HOME MED HOME MED COMPRESSO EQUIP. L EQUIP. L R COLLECTIO 77995 DAR DODGE N VENOUS 1 [facility] [place]LOOD [place] [address] DAR DODGE THYROID 1 [facility] STIMULATI INC INC NG HORMONE TSH POTASSIUM 84875 DAR DODGE SERUM 1 [facility] PLASMA/WH INC INC OLE BLOOD NEBULIZER E0570 [facility] ALCANT[facility] WITH 1 HOME MED HOME MED COMPRESSO EQUIP. L EQUIP. L R RADIOLOGI 45591 [place] KAILASH C EXAM 0 MEDICAL TRAVIS CHEST 2 IMAGING VIEWS ASS FRONTAL&L ATERAL NEBULIZER E0570 [facility] ALCANTAR WITH 0 HOME MED HOME MED COMPRESSO EQUIP. L EQUIP. L R URNLS DIP 15712 DEXTER RENTERIA DWI 0 STICK/TAB LET RGNT NON-AUTO W/O MICRSCP NEBULIZER E0570 [facility] ALCANTAR WITH 0 HOME MED HOME MED COMPRESSO EQUIP. L EQUIP. L R PHRM Q0513 YOUR YOUR DISPENSIN 0 PHARMACY PHARMACY G FEE [facility] INHALATIO N RX; PER 30 DAYS ADMN SET A7003 YOUR YOUR SM VOL 0 PHARMACY PHARMACY NONFILTR [facility] PNEUMAT NEBULIZR DISPBL ALBUTEROL J7620 YOUR YOUR TO 2.5 0 PHARMACY PHARMACY [employer] [facility] IPRATROPI UM BROM TO 0.5 MG OPHTH 18218 [facility] MEDICAL 0 XM&EVAL COMPRHNSV ESTAB PT 1/> NEBULIZER E0570 [facility] ALCANTAR WITH 0 HOME MED HOME MED COMPRESSO EQUIP. L EQUIP. L R 3D 06836 DAR DODGE RENDERING 0 [facility] W/INTERP INC INC & [place] [address] [place] KAILASH HEAD/BRAI 0 MEDICAL TRAVIS N W/O & IMAGING W/CONTRAS ASS T MATERIAL COLLECTIO 48317 DAR DODGE N VENOUS 0 [facility] BLOOD INC INC VENIPUNCT URE BASIC 08397 DAR DODGE METABOLIC 0 [facility] PANEL INC INC CALCIUM TOTAL THERAPEUT 54530 DEXTER RENTEIRA DWI IC 0 PROPHYLAC TIC/DX INJECTION SUBQ/IM IIV3 19580 DEXTER RENTERIA DWI VACCINE 0 SPLIT VIRUS 0.5 ML DOSAGE IM USE NEBULIZER E0570 [facility] ALCANT[facility] WITH 0 HOME MED HOME MED COMPRESSO EQUIP. L EQUIP. L R NEBULIZER E0570 [facility] ALCANTAR WITH 0 HOME MED HOME MED COMPRESSO EQUIP. L EQUIP. L R COLLECTIO 45072 DAR DODGE N VENOUS 0 [facility] BLOOD INC INC VENIPUNCT URE POTASSIUM 62364 DAR DODGE SERUM 0 [facility] PLASMA/WH INC INC OLE BLOOD BLOOD 75366 COMBINED COMBINED COUNT 0 PHYSICIAN PHYSICIAN COMPLETE S LA S LA AUTO&AUTO DIFRNTL WBC COLLECTIO 09275 DEXTER GUERRERO DEXTER DWI N VENOUS 0 BLOOD VENIPUNCT URE BASIC 35064 COMBINED COMBINED METABOLIC 0 PHYSICIAN PHYSICIAN PANEL S LA S LA CALCIUM TOTAL LIPID 07286 COMBINED COMBINED PANEL 0 [place] [address] COMBINED COMBINED THYROID 0 PHYSICIAN PHYSICIAN STIMULATI S LA S LA NG HORMONE TSH TRANSFERA 57803 COMBINED COMBINED SE 0 PHYSICIAN PHYSICIAN ALANINE S LA S LA AMINO ALT SGPT NEBULIZER E0570 [facility] ALCANT[facility] WITH 0 HOME MED HOME MED COMPRESSO EQUIP. EQUIP. R LLC LLC NEBULIZER E0570 [facility] ALCANTAR WITH 0 HOME MED HOME MED COMPRESSO EQUIP. EQUIP. R [facility] NEBULIZER E0570 [facility] LUNDBERGRELL WITH 0 HOME MED HOME MED COMPRESSO EQUIP. EQUIP. R [facility] PRESSURIZ 38066 DAR DODGE ED/NONPRE 0 [facility] SSURIZED INC INC INHALATIO N TREATMENT BRNCDILAT 67596 D[facility] DODGE RSPSE 0 [facility] SPMTRY INC INC PRE&POST- BRNCDILAT ADMN ECG 23256 DAR HUERTAMIThao ROUTINE 0 [facility] W/LEAST PROF SERV 12 LDS I&R ONLY THER 86272 DAR DODGE PROPH/DX 0 [facility] NJX IV INC INC PUSH SINGLE/1S T SBST/DRUG CREATINE 70405 DAR DODGE KINASE 0 [facility] TOTAL INC INC AMB A0427 [facility] SERVICE 0 AMBULANCE AMBULANCE ALS SERVICE SERVICE EMERGENCY TRANSPORT LEVEL 1 RADIOLOGI 76338 Sally BETANCUR 0 MEDICAL FIDENCIO EXAMINATI IMAGING ON CHEST ASSOCIATE SINGLE S VIEW FRONTAL ECG 44380 DAR DODGE ROUTINE 0 [facility] ECG INC INC W/LEAST 12 LDS TRCG ONLY W/O I&R CREATINE 03256 DAR DODGE KINASE MB 0 [facility] FRACTION INC INC ONLY COMPREHEN 35035 DAR DODGE SIVE 0 [facility] METABOLIC INC INC PANEL BLOOD 92024 DAR DODGE COUNT 0 [facility] COMPLETE INC INC AUTO&[place] [address] DAR DODGE TROPONIN 0 [facility] QUANTITAT INC INC CY GROUND A0425 [facility] MILEAGE 0 AMBULANCE AMBULANCE PER SERVICE SERVICE STATUTE MILE ADMN SET A7003 [facility] ALCANTAR SM VOL 0 HOME MED HOME MED NONFILTR EQUIP. EQUIP. PNEUMAT [employer] [facility] NEBULIZR DISPBL NEBULIZER E0570 [facility] ALCANTAR WITH 0 HOME MED HOME MED COMPRESSO EQUIP. EQUIP. R [facility] PH[facility] G0333 YOUR YOUR DISPEN 0 PHARMACY PHARMACY FEE INHAL [employer] RX; INITIAL 30-DAY SUPPLY ADMN SET A7003 YOUR YOUR SM VOL 0 PHARMACY PHARMACY NONFILTR [employer] PNEUMAT NEBULIZR DISPBL ALBUTEROL J7620 YOUR YOUR TO 2.5 0 PHARMACY PHARMACY [employer] IPRATROPI UM BROM TO 0.5 MG INJECTION J1040 DEXTER RENTERIA, 0 MARIE E MARIE E METHYLPRE DNISOLONE ACETATE 80 MG THERAPEUT 98427 DEXTER RENTERIA, IC 0 MARIE E MARIE E PROPHYLAC TIC/DX INJECTION SUBQ/IM RADEX 63180 DAR DODGE SPINE 9 [facility] LUMBOSACR INC INC AL MINIMUM 4 VIEWS ADMINISTR G0008 DEXTER RENTERIA, ATION OF 9 MARIE E MARIE E INFLUENZA VIRUS VACCINE IIV3 69723 DEXTER RENTERIA, VACCINE 9 MARIE E MARIE E SPLIT VIRUS 0.5 ML DOSAGE IM USE THERAPEUT 48223 DEXTER RENTERIA, IC 9 MARIE E MARIE E PROPHYLAC TIC/DX INJECTION SUBQ/IM INJECTION J1040 DEXTER RENTERIA, 9 MARIE E MARIE E METHYLPRE DNISOLONE ACETATE 80 MG INJECTION J1040 DEXTER RENTERIA, 9 MARIE E MARIE E METHYLPRE DNISOLONE ACETATE 80 MG INJECTION J1040 DEXTER RENTERIA, 9 MARIE E MARIE E METHYLPRE DNISOLONE ACETATE 80 MG URNLS DIP 25983 DEXTER RENTERIA, 9 MARIE E MARIE E STICK/TAB LET RGNT NON-AUTO W/O MICRSCP ECG 12103 DEXTER RENTERIA, ROUTINE 9 MARIE E MARIE E ECG W/LEAST 12 LDS W/I&R SCR G0123 [facility] CYTOPATH 9 [facility] CERV/VAG INC INC SCR CYTOTECH UND PHYS SUPV COLLECTIO 28569 DEXTER RENTERIA N VENOUS 9 MARIE E MARIE E BLOOD VENIPUNCT URE BASIC 01652 COMBINED COMBINED METABOLIC 9 PHYSICIAN PHYSICIAN PANEL S LAB S LAB CALCIUM TOTAL LIPID 59701 COMBINED COMBINED PANEL 9 PHYSICIAN PHYSICIAN S LAB S LAB TRANSFERA 45956 COMBINED COMBINED SE 9 PHYSICIAN PHYSICIAN ALANINE S [place] [address] COMBINED COMBINED THYROID 9 PHYSICIAN PHYSICIAN STIMULATI S LAB S LAB NG HORMONE TSH BLOOD 06221 DEXTER RENTERIA, OCCULT 9 MARIE E MARIE E PEROXIDAS E ACTV QUAL FECES 1 DETER BLOOD 24006 COMBINED COMBINED COUNT 9 PHYSICIAN PHYSICIAN COMPLETE S LAB S LAB AUTO&AUTO DIFRNTL WBC ADMINISTR G0008 DEXTER RENTERIA, ATION OF 8 MARIE E MARIE E INFLUENZA VIRUS VACCINE IIV3 94790 DEXTER RENTERIA, VACCINE 8 MARIE E MARIE E SPLIT VIRUS 0.5 ML DOSAGE IM USE INJECTION J1040 DEXTER RENTERIA, 8 MARIE E MARIE E METHYLPRE DNISOLONE ACETATE 80 MG Encounters Encounter Start End Date Code Location Performer Type Date [facility] DAR - 6 6 [facility] 6 6 [facility] DAR 6 6 [facility] T VISIT LOW/MODER SEVERITY HOSPITAL UNIVERSIT - 6 6 [facility] T OFFICE 36740 [facility] [address] [place] [facility] DE[facility] 6 6 MEDICAL JR [place] VISIT SERV [facility]IGH FOUNDATIO SEVERITY& N [facility]RE[facility] EMERGENCY 88632 DAR 6 6 [facility] T VISIT HIGH/URGE NT SEVERITY [facility] DAR - 6 6 [facility] 32650 [facility] 6 6 MARIE DWI T VISIT 15 MINUTES OFFICE 96744 [facility] 5 5 MARIE DWI T VISIT 15 MINUTES HOSPITAL DAR - 5 5 [facility] 5 [facility] 5 [facility] 5 [facility] [id number] [facility] MARIE DWI T VISIT 15 MINUTES HOSPITAL DAR [facility] 5 5 [facility] 40450 [facility] DWI DWI T VISIT 10 MINUTES HOSPITAL DAR [facility] 2 2 [facility] DAR [facility] 2 2 [facility] 51821 DEXTER JR DEXTER JR OUTPATIEN 2 2 DWI DWI T VISIT 15 MINUTES HOSPITAL DAR [facility] 2 2 [facility]EN [facility] T HOSPITAL DAR [facility] 1 1 [facility] OUTPATIEN [facility] T OFFICE 75987 DEXTER DWI DEXTER DWI OUTPATIEN 1 1 T VISIT 15 MINUTES HOSPITAL DAR - 1 1 [facility] OUTPATIEN [facility] T OFFICE 55510 DEXTER DWI DEXTER DWI OUTPATIEN 1 1 T VISIT 15 MINUTES HOSPITAL DAR - 1 1 [facility] 94800 DEXTER DWI DEXTER DWI OUTPATIEN 1 1 T VISIT 15 MINUTES [facility] DAR - 1 1 [facility] 88859 DEXTER DWI DEXTER DWI OUTPATIEN 1 1 T VISIT 15 MINUTES HOSPITAL DAR - 0 0 [facility] 68773 DEXTER DWI DEXTER DWI OUTPATIEN 0 0 T VISIT 15 MINUTES HOSPITAL DAR [facility] 0 0 [facility] 0 [facility] 16472 DEXTER DWI DEXTER DWI OUTPATIEN 0 0 T VISIT 15 MINUTES HOSPITAL DAR - 0 0 [facility] OUTPATIEN [facility] T OFFICE 53878 DEXTER, DEXTER, OUTPATIEN 0 0 MARIE E MARIE E T VISIT 15 MINUTES HOSPITAL DAR - 0 0 [facility] OUTPATIEN [facility] T OFFICE 63966 DEXTER, DEXTER, OUTPATIEN 0 0 MARIE E MARIE E T VISIT 15 MINUTES EMERGENCY 67564 DAR 0 0 [facility] DEPARTMEN [facility] T VISIT HIGH/URGE NT SEVERITY EMERGENCY 46982 SKYLA TRUONG, DEPT 0 0 EMERGENCY AMINAH S VISIT SERVICES HIGH SEVERITY& ASSOCIATE THREAT S [facility] DAR - 0 0 [facility] T OFFICE 14821 DEXTER RENTERIA OUTPATIEN 0 0 MARIE E MARIE E T VISIT 15 MINUTES OFFICE 43545 [facility] OUTPATIEN 0 0 MARIE E MARIE E T VISIT 15 MINUTES HOSPITAL DAR - 9 9 [facility] INC T OFFICE 09786 [facility] OUTPATIEN 9 9 MARIE E MARIE E T VISIT 15 MINUTES OFFICE 50820 [facility] OUTPATIEN 9 9 MARIE E MARIE E T VISIT 15 MINUTES OFFICE 35723 [facility] OUTPATIEN 9 9 MARIE E MARIE E T VISIT 15 MINUTES OFFICE 19960 [facility] OUTPATIEN 9 9 MARIE E MARIE E T VISIT 15 MINUTES OFFICE 35619 [facility] OUTPATIEN 9 9 MARIE E MARIE E T VISIT 15 MINUTES OFFICE 58766 [place] 9 9 [facility] H NEW/[facility]AB [facility] PATIENT 15 MIN OFFICE 94331 DEXTER RENTERIA OUTPATIEN 9 9 MARIE E MARIE E T VISIT 15 MINUTES OFFICE 84610 [facility] OUTPATIEN 9 9 MARIE E MARIE E T VISIT 25 MINUTES OFFICE 61852 [facility] OUTPATIEN 9 9 MARIE E MARIE E T VISIT 15 MINUTES OFFICE 28732 [facility] OUTPATIEN 9 9 MARIE E MARIE E T VISIT 15 MINUTES OFFICE 46580 [facility]ENTER[facility] OUTPATIEN 8 8 MARIE E MARIE E T VISIT 15 MINUTES OFFICE 71815 [facility] RENTER[facility] OUTPATIEN 8 8 MARIE E MARIE E T VISIT 15 MINUTES OFFICE 80599 [facility] OUTPATIEN 8 8 MARIE E MARIE E T VISIT 15 MINUTES OFFICE 70386 [facility] OUTPATIEN 8 8 MARIE E MARIE E T VISIT 15 MINUTES OFFICE 22017 DEXTER RENTERIA OUTPATIEN 8 8 MARIE E MARIE E T VISIT 15 MINUTES
--- OUTSIDE RECORDS SUMMARY | 2016-12-05 22:28 | External Medical Summary Rpt ---
Demographics Preferred Language Irish Marital Status Unknown Gnosticist Affiliation Unknown Race Unknown Ethnic Group Unknown Author Author , Organization [employer] Address Unknown Phone Unavailable Purpose Continuity of Care Document - through 2016 Immunization No patient found.
--- OUTSIDE RECORDS SUMMARY | 2016-12-05 22:28 | External Medical Summary Rpt ---
Author Author SC[employer], [employer] Organization [employer] Address Unknown Phone Unavailable
--- OUTSIDE RECORDS SUMMARY | 2016-12-05 22:28 | External Medical Summary Rpt ---
Demographics Preferred Language Estonian Marital Status Unknown Restoration Affiliation Unknown Race Unknown Ethnic Group Unknown Author Author , Organization [employer] Address Unknown Phone Unavailable Purpose Continuity of Care Document - through 2016 Immunization No patient found.
--- OUTSIDE RECORDS SUMMARY | 2016-12-05 22:32 | External Medical Summary Rpt ---
Author Author , Organization [employer] Address Unknown Phone Unavailable Care Team Providers Care Operator Catalyst Concentration Name Role Phone [facility] [place] Unavailable Unavailable INC, [facility] BEINEKE SANTI, BEINEKE Unavailable Unavailable SANTI RIVERO, RIVERO Unavailable Unavailable RIVERO ALL, RIVERO ALL Unavailable Unavailable [facility] Unavailable Unavailable SERVICE, [facility] Unavailable Unavailable SERVICE, [facility] Unavailable Unavailable [place], [facility] Unavailable Unavailable [facility], [facility] Unavailable Unavailable LAB, [facility] KAILASH TRAVIS, Unavailable Unavailable KAILASH TRAVIS KAILASH, FIDENCIO, Unavailable Unavailable KAILASH FIDENCIO CAMILO MELBA, CAMILO MELBA Unavailable Unavailable [facility] Unavailable Unavailable [place], [facility] [place] [facility] Unavailable [place]available [place], [facility] ECKERLINE JR HANANE, Unavailable Unavailable ECKERLINE JR HANANE ESCOTT EDW, ESCOTT Unavailable Unavailable EDW AMINAH TRUONG, Unavailable Unavailable AMINAH TRUONG [facility] Unavailable Unavailable INC, [facility] Unavailable [facility]available HOSPITAL P, [facility] BENNETT AMY, BENNETT AMY Unavailable Unavailable BENNETT AMY, BENNETT AMY Unavailable Unavailable [facility], Unavailable Unavailable [facility] Unavailable Unavailable [facility], [facility] Unavailable Unavailable [facility], [facility], [facility] Unavailable Unavailable [...] MARIE E, Unavailable Unavailable DEXTER, MARIE E DEANNAMIE REYNA, Unavailable Unavailable APRIL ORELLANA, Unavailable Unavailable MAREN PATEL JR, JR Unavailable Unavailable F, MCKEMIE JR, MAREN F NICKELS TREY, NICKELS Unavailable Unavailable TREY [...] EQUIPME JOSE BREAUX, Unavailable Unavailable JOSE BREAUX [facility], Unavailable Unavailable [facility] Un[facility] Un[facility] [place] [facility], Unavailable Unavailable [facility] Purpose Continuity of Care Document - 09-15-2007 through 2016 Problems Code Diagnosis DOS Provider Status J449 CHRONIC 09-13-2016 [facility] OBSTRUCTIVE [place] PULMONARY MEDICAL DISEASE UNS EQUIPME E039 HYPOTHYROID 05-25-2016 [facility] P I10 ESSENTIAL 05-25-2016 [place] [facility] HYPERTENSIO IMAGING ASS N R079 CHEST PAIN 05-25-2016 [place] UNSPECIFIED [facility] IM[facility]ING ASS [id number] LACERATION 04-26-2016 [facility] BODY RT INC FOREARM INITIAL [id number] APHASIA 01-23-2016 [facility] CEREBRAL INFARCTION [id number] DYSPHASIA 01-23-2016 [facility]PITAL CEREBRAL INFARCTION R201 HYPOESTHESI 01-23-2016 [facility] Z09 ENC F/U 01-23-2016 [facility] CMPL TX OTH THAN MALIG NEOPLSM [id number] CELLULITIS 12-24-2015 [facility] I361 NONRHEUMATI 12-16-2015 [facility] TRICUSPID SERV VALVE [facility]OUNDATION INSUFFICIEN CY R1310 DYSPHAGIA 12-16-2015 [facility] HOSPI G8191 HEMIPLEGIA 12-15-2015 [facility] AMBULANCE AFFECTING SERVICE RIGHT DOMINANT SIDE I493 VENTRICULAR 12-15-2015 [facility] PREMATURE SERV DEPOLARIZAT FOUNDATION ION D53252 CEREBRAL 12-15-2015 [facility] INFARCT D/T SERV THROMB LT FOUNDATION [...] FOLLOWING SERVICE CEREBRAL INFARCTION J349 UNSPECIFIED 12-15-2015 [facility] DISORDER SERV OF NOSE AND FOUNDATION NASAL SINUSES R200 ANESTHESIA 12-15-2015 [facility] SKIN MEDICAL IMAGING ASS C71132 FACIAL 12-15-2015 [facility] WEAKNESS [facility] INC R4701 APHASIA 12-15-2015 [facility] R479 UNSPECIFIED 12-15-2015 [facility] SPEECH SERV DISTURBANCE FOUNDATION S R531 WEAKNESS 12-15-2015 [facility] Z720 TOBACCO USE 12-15-2015 [facility] J209 ACUTE 08-11-2015 D[facility]TER BRONCHITIS MARIE UNSPECIFIED Z6822 BODY MASS 08-11-2015 D[facility] INDEX BMI MARIE 22.0-22.9 ADULT J441 CHRONIC 07-25-2015 DEXTER OBSTRUCTIVE MARIE PULMONARY DZ W/EXACERBAT ION J440 COPD WITH 07-21-2015 [facility] RESPIRATORY INFECTION R05 COUGH 07-21-2015 [facility] [id number] UNS FX 05-27-2015 [place] LOWER RT MEDICAL RADIUS IMAGING ASS SUBSQT ENC CLOS FX RTN [id number] OTH 05-27-2015 [facility] EXTRAARTIC [facility] FX [...] INC FRACTURE LOWER ARM V5419 AFTERCARE 04-25-2015 [place] HEALING [facility] TRAUMATIC IMAGING ASS FRACTURE OTHER BONE 4660 ACUTE 04-18-2015 D[facility]TER BRONCHITIS MARIE 96871 OBSTRUCTIVE 04-18-2015 DEXTER CHRONIC MARIE BRONCHIT[place]ERBATIO N 73316 FEVER 04-18-2015 [place] UNSPECIFIED [facility]ICAL IMAGING ASS V851 BODY MASS 04-18-2015 D[facility]TER INDEX MARIE BETWEEN 19-24 ADULT 11062 PAIN IN 03-20-2015 [place] JOINT, MEDICAL FOREARM IMAGING ASS 496 CHRONIC 01-17-2015 [facility] OBSTRUCTION MEDICAL NEC EQUIPME 4019 UNSPECIFIED 11-27-2014 [facility] ESSENTIAL SERV HYPERTENSIO FOUNDATION N 41219 OTHER 11-27-2014 [facility] SPECIFIED SERV CARDIAC FOUNDATION DYSRHYTHMIA S 1844 MALIGNANT 10-25-2014 [facility], NEOPLASM OF LLC VULVA UNSPECIFIED SITE 7213 LUMBOSACRAL 08-16-2014 [place] [facility] SPONDYLOSIS IMAGING ASS WITHOUT MYELOPATHY 7242 LUMBAGO 08-16-2014 DEXTER MARIE 7384 ACQUIRED 08-16-2014 [place] SPONDYLOLIS MEDICAL THESIS IMAGING ASS 8472 LUMBAR 08-16-2014 DEXTER SPRAIN AND MARIE STRAIN V8522 BODY MASS 08-16-2014 DEXTER INDEX MARIE 26.0-26.9 ADULT 4169 UNSPECIFIED 02-26-2014 DEXTER JR CHRONIC DWI PULMONARY HEART DISEASE 19103 HEMATOMA 10-31-2013 DEXTER JR COMPLICATIN DWI G A PROCEDURE NEC 460 ACUTE 07-10-2013 DEXTER JR NASOPHARYNG DWI ITIS 7823 EDEMA 01-26-2012 APRIL LUBIN REYNA 2449 UNSPECIFIED 01-24-2012 DEXTER JR DWI HYPOTHYROID ISM 486 PNEUMONIA, 11-12-2011 [facility] ORGANISM [facility] UNSPECIFIED INC 26524 OTHER 11-12-2011 [place] DISEASES OF MEDICAL LUNG NOT IMAGING ASS ELSEWHERE CLASSIFIED 5180 PULMONARY 2011 [place] COLLAPSE [facility] 5183 PULMONARY 2011 [place] EOSINOPHILI MEDICAL A IMAGING ASS 5110 PLEURISY 07-26-2011 [facility] WITHOUT [facility] MENTION INC EFFUS/CURRE NT TB V0481 NEED 04-20-2011 DEXTER DWI PROPHYLACTI C VACCINATION &INOCULATIO N FLU 65719 ABDOMINAL 12-19-2010 [place] PAIN, MEDICAL UNSPECIFIED IMAGING ASS SITE 54284 OTHER 12-14-2010 DEXTER DWI CHRONIC OTITIS EXTERNA 2767 HYPERPOTASS 09-03-2010 [facility] EMIA [facility] INC 684 IMPETIGO 08-21-2010 DEXTER DWI 5990 URINARY 07-17-2010 DEXTER DWI TRACT INFECTION SITE NOT SPECIFIED 28677 MACULAR 06-12-2010 SABRINA CHAPAERATIO N OF RETINA UNSPECIFIED 7840 HEADACHE 05-06-2010 [facility] 2724 OTHER AND 03-02-2010 DEXTER DWI UNSPECIFIED HYPERLIPIDE SUNITA 3569 UNSPEC 03-02-2010 DEXTER DWI HEREDIT&IDI OPATHIC PERIPHERAL NEUROPATHY 32110 OTHER 03-02-2010 DEXTER DWI SPECIFIED CIRCULATORY SYSTEM DISORDERS V5869 LONG-TERM 03-02-2010 [facility] (CURRENT) PHYSICI[facility] USE OF [place] OTHER MEDICATIONS 43227 CRAMP OF 02-24-2010 DEXTER, LIMB MARIE E 23864 SHORTNESS 11-21-2009 [facility] 38822 OTHER 11-21-2009 [facility] DYSPNEA AND AMBULANCE [place] [address] ACUT 10-03-2009 DEXTER, SUPPRATV MARIE E OTITIS MEDIA W/O SPONT RUP EARDRUM 4610 ACUTE 10-03-2009 DEXTER, MAXILLARY MARIE E SINUSITIS 6961 OTHER 12-24-2008 NEW PSORIASIS [facility] DISORDERS 6983 LICHENIFICA 12-24-2008 NEW TION AND [facility] SIMPLEX CHRONICUS 6272 SYMPTOMATIC 10-29-2008 DEXTER, MARIE E MENOPAUSAL/ FEMALE CLIMACTERIC STATES V1589 OTH SPEC 10-29-2008 [facility] HX [place] PRESENTING INC HAZARDS HEALTH OTH V762 SCREENING 10-29-2008 [facility] FOR [place] MALIGNANT INC NEOPLASM OF THE CERVIX V812 SCREENING 10-29-2008 DEXTER, OTHER&UNSPE MARIE E C CARDIOVASCU LAR CONDITIONS 71659 UNSPECIFIED 10-01-2008 DEXTER, INFECTIVE MARIE E OTITIS EXTERNA 7856 ENLARGEMENT 07-17-2008 DEXTER, OF LYMPH MARIE E NODES 51483 UNSPECIFIED 03-01-2008 DEXTER, GANGLION MARIE E J44.9 [...] ST 10 WI ti EP 12 4- 1- 00 SI 01 S ve AM 81 [...] .0 ST 59 WI ti EP 12 9 4 SI 70 S ve AM 81 20 20 DE JR 00 10 11 15 1 PH DW AR IG MG MA HT CY E CA PS OF UL E CY NT HI AN A OX 00 10 12 5 60 15 EA 19 LE Ac AZ 78 -1 -[address] 59 WI ti EP 12 9 8 SI 70 S ve AM 81 20 20 DE JR 00 10 10 15 1 PH DW AR IG MG MA HT CY E CA PS OF UL E CY NT HI AN A OX 00 10 12 5 60 15 EA 19 LE Ac AZ 78 -1 -[address] 59 WI ti EP 12 9- 4- 00 SI 70 S ve AM 81 20 20 DE JR 00 10 10 15 1 PH DW AR IG MG MA HT CY E CA PS OF UL E CY NT HI AN A OX 00 10 11 5 60 15 EA 19 LE Ac AZ 78 -1 -[address] 59 WI ti EP 12 9 9- 00 SI 70 S ve AM [...] ST 78 WI ti EP 12 5- 7 SI 09 S ve AM 81 20 20 DE JR 00 10 10 15 1 PH DW AR IG MG MA HT CY E CA PS OF UL E CY NT HI AN A OX 00 03 06 5 60 15 EA 16 LE Ac AZ 78 -1 -[address] 78 WI ti EP 12 2 SI 09 S ve AM 81 20 20 DE JR 00 10 10 15 1 PH DW AR IG MG MA HT CY E CA PS OF UL E CY NT HI AN A OX 00 03 05 5 60 15 EA 16 LE Ac AZ 78 -1 -[address] 78 WI ti EP 12 5 3 00 SI 09 S ve AM 81 20 20 DE JR 00 10 10 15 1 PH DW AR IG MG MA HT CY E CA PS OF UL E CY NT HI AN A OX 00 03 04 5 60 15 EA 16 LE Ac AZ 78 -1 -[address] 78 WI ti EP 12 SI 09 S ve AM 81 20 20 DE JR 00 10 10 15 1 PH DW AR IG MG MA HT CY E CA PS OF UL E CY NT HI AN A OX 00 03 04 5 60 15 EA 16 LE Ac AZ 78 -1 -[address] 78 WI ti EP 12 7 SI 09 S ve AM 81 20 20 DE JR 00 10 10 15 1 PH DW AR IG MG MA HT CY E CA PS OF UL E CY NT HI AN A OX 00 03 03 5 60 15 EA 16 LE Ac AZ 78 -1 -[address] 78 WI ti EP 12 5- 5 SI 09 S ve AM 81 20 20 DE JR 00 10 10 15 1 PH DW AR IG MG MA HT CY E CA PS OF UL E CY NT HI AN A OX 00 12 02 04 60 15 EA 15 LE Ac AZ 78 -0 -[address] 39 WI ti EP 12 2 6 00 SI 10 S ve AM 81 [...] NT HI AN A OX 00 06 02 60 15 EA 12 LE [...] ET NT HI AN A OX 00 01 02 02 60 15 EA 11 LE Ac AZ 78 -1 -[address] 04 WI ti EP 12 2- 6- 00 SI 94 S ve AM 81 20 20 DE JR 00 09 09 15 1 PH DW AR IG MG MA HT CY E CA PS OF UL CY E NT HI AN A OX 00 01 02 01 60 15 EA 11 LE [...] -[address] 85 t ti 40 8 SI 15 Av ve 98 20 20 [...] 85%/>02 MEDICAL MEDICAL CONC AT EQUIPME EQUIPME [email or web address] FLW RATE BASIC 10-18-201 12399 [facility] DOD[facility] METABOLIC 6 [facility] PANEL INC INC CALCIUM TOTAL RADIOLOGI 26915 [facility] L[facility] C EXAM 6 MEDICAL TRAVIS CHEST 2 IMAGING VIEWS ASS FRONTAL&L ATERAL ECG 56475 DAR RENTERIA JR ROUTINE 6 [facility] W/LEAST P 12 LDS I&R ONLY COLLECTIO 26738 DAR DOD[facility] N VENOUS 6 [facility] BLOOD INC INC VENIPUNCT URE ECG 41230 D[facility] DOD[facility] ROUTINE 6 [facility] ECG INC INC W/LEAST 12 LDS TRCG ONLY W/O I&[place] [address] DAR DODGE TROPONIN 6 [facility] [place] [address] DAR DODGE THYROID 6 [facility] STIMULATI INC INC NG HORMONE TSH SIMPLE 51769 DAR DODGE REPAIR 6 [facility] SCALP/NEC INC INC K/AX/KARINA T/TRUNK 2.5CM/< HOSPITAL G0463 [facility] 6 Y Y T [facility] HOSPITAL VISIT ASSESS & MGMT PT SBSQ 95329 [facility] 6 MEDICAL JR LUT CARE/DAY SERV 25 FOUNDATIO MINUTES N SWALLOWIN 21312 [facility] 6 Y OF CAR W/CINERAD [place] IOGRAPY/V HOSPI IDRADIOG ECHO 57707 MALAIKA CHÁVEZ MARIELLA TTHRC R-T 6 MEDICAL 2D SERV W/WOM-MOD FOUNDATIO E COMPL N SPEC&COLR D ECG 35238 MALAIKA BRETT CHI ROUTINE 6 MEDICAL ECG SERV W/LEAST FOUNDATIO 12 LDS N I&[place] [address] MALAIKA ESCOTT ANGIOGRAP 6 MEDICAL EDW HY HEAD SERV W/CONTRAS FOUNDATIO T/[place] [address] MALAIKA ESCOTT ANGIOGRAP 6 MEDICAL EDW HY NECK SERV W/CONTRAS FOUNDATIO [place] [address] DAR DODGE TROPONIN 6 MEM HOSP MEM HOSP QUANTITAT INC INC CY GROUND A0425 [facility]AGE 6 AMBULANCE AMBULANCE PER SERVICE SERVICE STATUTE MILE ECG 17690 D[facility] DOD[facility] ROUTINE 6 [facility] HOS[facility] MEM HOSP ECG INC INC W/LEAST 12 LDS TRCG ONLY W/O I&R AMB A0427 [facility] SERVICE 6 AMBULANCE AMBULANCE ALS SERVICE SERVICE EMERGENCY TRANSPORT LEVEL 1 RADIOLOGI 29406 [facility] MEDICAL TREY EXAMINATI SERV ON CHEST FOUNDATIO SINGLE N VIEW FRONTAL INITIAL 49733 [facility] 6 MEDICAL JR LUT CARE/DAY SERV [address] [place] [address] [facility] HEAD/BRAI 6 MEDICAL N W/O IMAGING CONTRAST ASS MATERIAL MRI BRAIN 89280 MALAIKA RASLAU BRAIN 6 MEDICAL FLA STEM W/O SERV CONTRAST FOUNDATIO MATERIAL N BLOOD 12991 [facility] DOD[facility] COUNT 6 [facility] COMPLETE INC INC AUTO&AUTO DIFRNTL WBC COMPREHEN 65912 [facility] SIVE 6 [facility] H[facility] METABOLIC INC INC PANEL CREATINE 58905 DAR DODGE KINASE MB 6 MEM HOSP MEM HOS[facility] FRACTION INC INC ONLY AMBULANCE A0428 [facility] SERVICE 6 AMBULANCE AMBULANCE BLS SERVICE SERVICE NONEMERGE NCY TRANSPORT THROMBOPL 52297 [facility] D[facility] ASTIN 6 MEM HOS[facility]OS[facility] TIME INC INC PARTIAL PLASMA/WH OLE BLOOD PROTHROMB 30175 D[facility] DOD[facility] IN TIME 6 [facility] H[facility] INC INC CREATINE 11320 DAR DODGE KINASE 6 [place] [address] DAR DODGE INFUSION 5 [facility] H[facility] THERAPY/P INC INC ROPHYLAXI S /DX 1ST TO 1 HR THERAPEUT 44379 [facility] DOD[facility] IC 5 [facility] HOS[facility] INJECTION INC INC IV PUSH EACH NEW DRUG RADIOLOGI 37483 [facility] EXAM 5 MEDICAL SANTI CHEST 2 IMAGING VIEWS ASS FRONTAL&L ATERAL INJECTION J1100 DEXTER RENTERIA 5 MARIE MARIE DEXAMETHO SONE SODIUM PHOSPHATE 1 MG RADEX 10-20-201 54480 [place] JOSEFA ALL WRIST 5 MEDICAL COMPLETE IMAGING MINIMUM 3 ASS VIEWS COLLECTIO 77612 DEXTER RENTERIA N VENOUS 5 MARIE MARIE BLOOD VENIPUNCT URE RADEX 90261 [facility] JOSEFA ALL WRIST 5 MEDICAL COMPLETE IMAGING MINIMUM 3 ASS VIEWS INJECTION J1100 DEXTER RENTERIA 5 MARIE MARIE DEXAMETHO SONE SODIUM PHOSPHATE 1 MG RADIOLOGI 68459 [place] JOSEFA ALL C EXAM 5 MEDICAL CHEST 2 IMAGING VIEWS ASS FRONTAL&L ATERAL RADEX 50303 [place] JOSEFA ALL WRIST 5 MEDICAL COMPLETE IMAGING MINIMUM 3 ASS VIEWS RADEX 77784 [place] KAILASH WRIST 5 MEDICAL TRAVIS COMPLETE IMAGING MINIMUM 3 ASS VIEWS CAST Q4022 [facility] SUPPLIES 5 PHYSICIAN PHYSICIAN SHORT ARM S GROUP S GROUP SPLINT ADULT FIBERGLAS S RADEX 16239 [place] JOSEFA ALL WRIST 5 MEDICAL COMPLETE IMAGING MINIMUM 3 ASS VIEWS O2 CONC 1 E1390 [facility] GALARZA PORT 5 HOME HOME 85%/>02 MEDICAL MEDICAL CONC AT EQUIPME EQUIPME [email or web address] FLW RATE O2 CONC 1 E1390 [facility] ALCANTAR DEL PORT 5 HOME HOME 85%/>02 MEDICAL MEDICAL CONC AT EQUIPME EQU[facility]ME [email or web address]] FLW RATE ECG 59214 [place] BRETT CHI ROUTINE 5 MEDICAL ECG SERV W/LEAST FOUNDATIO 12 LDS N I&R ONLY O2 CONC 1 E1390 [facility] GALARZA PORT 5 HOME HOME 85%/>02 MEDICAL MEDICAL CONC AT EQUIPME EQUIPME [facility] [[email or web address]] [place] [address] [facility] PATHOLOGY GROSS&GENNARO ROSCOPIC EXAM O2 CONC 1 E1390 [facility] GALARZA PORT 5 HOME HOME 85%/>02 MEDICAL MEDICAL CONC AT EQUIPME EQU[facility]ME [email or web address] FLW RATE O2 CONC 1 E1390 [facility] GALARZA PORT 5 HOME HOME 85%/>02 MEDICAL MEDICAL CONC AT EQUIPME EQU[email or web address] FLW RATE O2 CONC 1 E1390 [facility] GALARZA PORT 5 HOME HOME 85%/>02 MEDICAL MEDICAL CONC AT EQUIPME EQUIPME PRSC FLW RATE RADEX 29604 HOLLY TAYLORCHER SPINE 5 MEDICAL TRAVIS LUMBOSACR IMAGING AL [...] AT EQUIPME EQUIPME PRSC FLW RATE THERAPEUT 55405 DEXTER RENTERIA JR IC 4 DWI DWI [...] AT EQUIPME EQUIPME PRSC FLW RATE THERAPEUT 49808 DEXTER RENTERIA JR IC 4 DWI DWI PROPHYLAC TIC/DX INJECTION SUBQ/IM INJECTION J1040 DEXTER RENTERIA JR 4 DWI DWI METHYLPRE DNISOLONE ACETATE 80 MG O2 CONC 1 E1390 ORTIZ ORTIZ DEL PORT 4 HOME HOME 85%/>02 MEDICAL MEDICAL CONC AT EQUIPME EQUIPME PRSC FLW RATE INJECTION J1100 DEXTER RENTERIA JR 4 DWI DWI DEXAMETHO SONE SODIUM PHOSPHATE 1 MG THERAPEUT 06860 DEXTER RENTERIA JR IC 4 DWI DWI PROPHYLAC TIC/DX INJECTION SUBQ/IM O2 CONC 1 E1390 ORTIZ ORTIZ DEL PORT 4 HOME HOME 85%/>02 MEDICAL MEDICAL CONC AT EQUIPME EQUIPME PRSC FLW RATE O2 CONC 1 E1390 ORTIZ ORTIZ DEL PORT 3 HOME HOME 85%/>02 MEDICAL MEDICAL CONC AT EQUIPME EQUIPME PRSC FLW RATE THERAPEUT 19369 DEXTER RENTERIA JR IC 3 DWI DWI [...] CONC 1 E1390 [facility] ALCANTAR DEL PORT 3 HOME HOME 85%/>02 MEDICAL MEDICAL CONC AT EQUIPME EQUIPME PRSC FLW RATE O2 CONC 1 E1390 ORTIZ ALCANTAR DEL PORT 2 HOME HOME 85%/>02 MEDICAL MEDICAL CONC AT EQUIPME EQUIPME PRSC FLW RATE O2 CONC 1 E1390 ORTIZLACY ALCANTAR DEL PORT 2 HOME HOME 85%/>02 [...] AT EQUIPME EQUIPME PRSC FLW RATE ECHO 96378 APRIL CHEN [facility] R-T 2 JR REYNA JR REYNA 2D W/WOM-MOD E COMPL SPEC&COLR D RADIOLOGI 46529 DAR DODGE C EXAM 2 [facility] CHEST 2 INC INC VIEWS FRONTAL&L ATERAL RADIOLOGI 91862 DAR DODGE C EXAM 2 [facility]OS[facility] CHEST 2 INC INC VIEWS FRONTAL&L ATERAL RADIOLOGI 47085 DAR DODGE C EXAM 1 [facility] CHEST 2 INC INC VIEWS FRONTAL&L ATERAL INJECTION J1040 DEXTER RENTERIA JR 1 DWI DWI METHYLPRE DNISOLONE ACETATE 80 MG THERAPEUT 68224 DEXTER RENTERIA JR IC 1 DWI DWI PROPHYLAC TIC/DX INJECTION SUBQ/IM RADIOLOGI 88882 HOLLY LINDER C EXAM 1 MEDICAL TRAVIS CHEST 2 IMAGING VIEWS ASS FRONTAL&L ATERAL COLLECTIO 40950 DAR DODGE N VENOUS 1 [facility] [place] [address] DAR DODGE THYROID 1 [facility] STIMULATI INC INC NG HORMONE TSH IIV 10984 DEXTER RENTERIA DWI VACCINE 1 PRESERV FREE INCREASED AG CONTENT IM ADMINISTR G0008 DEXTER GUERRERO ATION OF 1 INFLUENZA VIRUS VACCINE ADMN SET A7003 YOUR YOUR SM VOL 1 PHARMACY PHARMACY NONFILTR [employer] PNEUMAT NEBULIZR DISPBL ALBUTEROL J7620 YOUR YOUR TO 2.5 1 PHARMACY PHARMACY [employer] [facility] IPRATROPI UM BROM TO 0.5 MG PHRM Q0513 YOUR YOUR DISPENSIN 1 PHARMACY PHARMACY G FEE [employer] INHALATIO N RX; PER 30 DAYS 3D 40100 [place] KAILASH RENDERING 1 MEDICAL TRAVIS IMAGING W/INTERP& [place] [address] [place] KAILASH ABDOMEN & 1 MEDICAL TRAVIS PELVIS IMAGING W/[place] [address] DAR DODGE THYROID 1 [facility] STIMULATI INC INC NG HORMONE TSH COLLECTIO 44115 DAR DODGE N VENOUS 1 [facility] BLOOD INC INC VENIPUNCT URE NEBULIZER E0570 [facility] ALCANTAR WITH 1 HOME MED HOME MED COMPRESSO EQUIP. L EQUIP. L R NEBULIZER E0570 ORTIZ ORTIZ WITH 1 HOME MED HOME MED COMPRESSO EQUIP. L EQUIP. L R NEBULIZER E0570 [facility] ALCANTAR WITH 1 HOME MED HOME MED COMPRESSO [place] [address] DAR DODGE THYROID 1 [facility] STIMULATI INC INC NG HORMONE TSH COLLECTIO 58406 DAR DODGE N VENOUS 1 [facility] BLOOD INC INC VENIPUNCT URE POTASSIUM 92998 DAR DODGE SERUM 1 [facility] PLASMA/WH INC INC OLE BLOOD NEBULIZER E0570 [facility] ALCANTAR WITH 1 HOME MED HOME MED COMPRESSO EQUIP. L EQUIP. L R RADIOLOGI 75246 [place] KAILASH C EXAM 0 MEDICAL TRAVIS CHEST 2 IMAGING VIEWS ASS FRONTAL&L ATERAL NEBULIZER E0570 [facility] ALCANTAR WITH 0 HOME MED HOME MED COMPRESSO EQUIP. L EQUIP. L R URNLS DIP 47314 DEXTER RENTERIA DWI 0 STICK/TAB LET RGNT NON-AUTO W/O MICRSCP NEBULIZER E0570 [facility] ALCANTAR WITH 0 HOME MED HOME MED COMPRESSO EQUIP. L EQUIP. L R PHRM Q0513 YOUR YOUR DISPENSIN 0 PHARMACY PHARMACY G FEE [employer] INHALATIO N RX; PER 30 DAYS ALBUTEROL J7620 YOUR YOUR TO 2.5 0 PHARMACY PHARMACY [facility] [employer] IPRATROPI UM BROM TO 0.5 MG ADMN SET A7003 YOUR YOUR SM VOL 0 PHARMACY PHARMACY NONFILTR [employer] PNEUMAT NEBULIZR DISPBL OPHTH 60756 [facility] MEDICAL 0 XM&EVAL COMPRHNSV ESTAB PT 1/> NEBULIZER E0570 [facility] ALCANTAR WITH 0 HOME MED HOME MED COMPRESSO EQUIP. L EQUIP. L R 3D 91604 DAR DODGE RENDERING 0 [facility] W/INTERP INC INC & [place] [address] [place] KAILASH HEAD/BRAI 0 MEDICAL TRAVIS N W/O & IMAGING W/CONTRAS ASS T MATERIAL IIV3 15752 DEXTER RENTERIA DWI VACCINE 0 SPLIT VIRUS 0.5 ML DOSAGE IM USE COLLECTIO 20965 DAR DODGE N VENOUS 0 [facility] BLOOD INC INC VENIPUNCT URE THERAPEUT 97435 DEXTER RENTERIA DWI IC 0 PROPHYLAC TIC/DX INJECTION SUBQ/IM BASIC 91948 DAR DODGE METABOLIC 0 [facility] PANEL INC INC CALCIUM TOTAL NEBULIZER E0570 [facility]ANT[facility] WITH 0 HOME MED HOME MED COMPRESSO EQUIP. L EQUIP. L R NEBULIZER E0570 [facility] AL[facility]ANTAR WITH 0 HOME MED HOME MED COMPRESSO EQUIP. L EQUIP. L R COLLECTIO 44577 DAR DODGE N VENOUS 0 [facility] BLOOD INC INC VENIPUNCT URE POTASSIUM 54532 DAR DODGE SERUM 0 [facility] PLASMA/WH INC INC OLE BLOOD BASIC 76801 COMBINED COMBINED METABOLIC 0 PHYSICIAN PHYSICIAN PANEL S LA S LA CALCIUM TOTAL COLLECTIO 36495 DEXTER GUERRERO N VENOUS 0 [place] [address] COMBINED COMBINED THYROID 0 PHYSICIAN PHYSICIAN STIMULATI S LA S LA NG HORMONE TSH TRANSFERA 50212 COMBINED COMBINED SE 0 PHYSICIAN PHYSICIAN ALANINE S LA S LA AMINO ALT SGPT LIPID 52713 COMBINED COMBINED PANEL 0 PHYSICIAN PHYSICIAN S LA S LA BLOOD 44921 COMBINED COMBINED COUNT 0 PHYSICIAN PHYSICIAN COMPLETE S LA S LA AUTO&AUTO DIFRNTL WBC NEBULIZER E0570 ORTIZ ALCANTAR WITH 0 HOME MED HOME MED COMPRESSO EQUIP. EQUIP. R [facility] NEBULIZER E0570 ORTIZ ALCANTAR WITH 0 HOME MED HOME MED COMPRESSO EQUIP. EQUIP. R [facility] NEBULIZER E0570 ORTIZ LUNDBERGRELL WITH 0 HOME MED HOME MED COMPRESSO EQUIP. EQUIP. R [facility] PRESSURIZ 38421 DAR DODGE ED/NONPRE 0 [facility] SSURIZED INC INC INHALATIO N TREATMENT BRNCDILAT 39095 DAR DODGE RSPSE 0 [facility] SPMTRY INC INC PRE&POST- BRNCDILAT ADMN ECG 54111 DAR MCKEMIThao ROUTINE 0 [facility] W/LEAST PROF SERV 12 LDS I&R ONLY GROUND [id number] [facility] MILEAGE 0 AMBULANCE AMBULANCE [place] [address] DAR DODGE TROPONIN 0 [facility] QUANTITAT INC INC CY ECG 84247 DAR DODGE ROUTINE 0 [facility] ECG INC INC W/LEAST 12 LDS TRCG ONLY W/O I&R COMPREHEN 93172 D[facility]OD[facility] SIVE 0 [facility] METABOLIC INC INC PANEL CREATINE 75433 DAR [place] KINASE MB 0 [facility] FRACTION INC INC ONLY BLOOD 54290 DAR DODGE COUNT 0 [facility] COMPLETE INC INC AUTO&AUTO DIFRNTL WBC RADIOLOGI 08896 Sally BETANCUR 0 MEDICAL FIDENCIO EXAMINATI IMAGING ON CHEST ASSOCIATE SINGLE S VIEW FRONTAL THER 77886 DAR DODGE PROPH/DX 0 [facility] NJX IV INC INC PUSH SINGLE/1S T SBST/DRUG AMB A0427 [facility] SERVICE 0 AMBULANCE AMBULANCE ALS SERVICE SERVICE EMERGENCY TRANSPORT LEVEL 1 CREATINE 77558 DAR DODGE KINASE 0 [facility] TOTAL INC INC ADMN SET A7003 ORTIZ ALCANTAR SM VOL 0 HOME MED HOME MED NONFILTR EQUIP. EQUIP. PNEUMAT [facility] NEBULIZR DISPBL NEBULIZER E0570 ORTIZ ALCANTAR WITH 0 HOME MED HOME MED COMPRESSO EQUIP. EQUIP. R [facility] ALBUTEROL J7620 YOUR YOUR TO 2.5 0 PHARMACY PHARMACY [facility] IPRATROPI UM BROM TO 0.5 MG ADMN SET A7003 YOUR YOUR SM VOL 0 PHARMACY PHARMACY NONFILTR [employer] PNEUMAT NEBULIZR DISPBL PHARM [id number] YOUR YOUR DISPEN 0 PHARMACY PHARMACY FEE INHAL [facility] RX; INITIAL 30-DAY SUPPLY INJECTION J1040 DEXTER RENTERIA, 0 MARIE E MARIE E METHYLPRE DNISOLONE ACETATE 80 MG THERAPEUT 28053 DEXTER RENTERIA, IC 0 MARIE E MARIE E PROPHYLAC TIC/DX INJECTION SUBQ/IM RADEX 17388 [facility] LUMBOSACR INC INC AL MINIMUM 4 VIEWS IIV3 73443 D[facility]TER RENTERIA, VACCINE 9 MARIE E MARIE E SPLIT VIRUS 0.5 ML DOSAGE IM USE ADMINISTR G0008 DEXTER RENTERIA, ATION OF 9 MARIE E MARIE E INFLUENZA VIRUS VACCINE INJECTION J1040 DEX[facility] RENTERIA, 9 MARIE E MARIE E METHYLPRE DNISOLONE ACETATE 80 MG THERAPEUT 97787 D[facility] RENTERIA, IC 9 MARIE E MARIE E PROPHYLAC TIC/DX INJECTION SUBQ/IM INJECTION J1040 DEX[facility] RENTERIA, 9 MARIE E MARIE E METHYLPRE DNISOLONE ACETATE 80 MG INJECTION J1040 DEX[facility] RENTERIA, 9 MARIE E MARIE E METHYLPRE DNISOLONE ACETATE 80 MG URNLS DIP 45663 DEXTER RENTERIA, 9 MARIE E MARIE E STICK/TAB LET RGNT NON-AUTO W/O MICRSCP SCR G0123 AMERIP[facility] AMERIPATH CYTOPATH 9 [facility] CERV/VAG INC INC SCR CYTOTECH UND PHYS SUPV BLOOD 66967 DEXTER RENTERIA OCCULT 9 MARIE E MARIE E PEROXIDAS E ACTV QUAL FECES 1 DETER LIPID 67542 COMBINED COMBINED PANEL 9 PHYSICIAN PHYSICIAN S LAB S LAB TRANSFERA 42407 COMBINED COMBINED SE 9 PHYSICIAN PHYSICIAN ALANINE S LAB S LAB AMINO ALT SGPT COLLECTIO 57297 [facility] N VENOUS 9 MARIE E MARIE [place] [address] COMBINED COMBINED THYROID 9 PHYSICIAN PHYSICIAN STIMULATI S LAB S LAB NG HORMONE TSH ECG 16185 DEXTER RENTERIA, ROUTINE 9 MARIE E MARIE E ECG W/LEAST 12 LDS W/I&R BLOOD 92669 COMBINED COMBINED COUNT 9 PHYSICIAN PHYSICIAN COMPLETE S LAB S LAB AUTO&AUTO DIFRNTL WBC BASIC 23845 COMBINED COMBINED METABOLIC 9 PHYSICIAN PHYSICIAN PANEL S LAB S LAB CALCIUM TOTAL ADMINISTR G0008 DEXTER RENTERIA, ATION OF 8 MARIE E MARIE E INFLUENZA VIRUS VACCINE IIV3 52890 DEXTER RENTERIA, VACCINE 8 MARIE E MARIE E SPLIT VIRUS 0.5 ML DOSAGE IM USE INJECTION J1040 DEXTER RENTERIA, 8 MARIE E MARIE E METHYLPRE DNISOLONE ACETATE 80 MG Encounters Encounter Start End Date Code Location Performer Type Date [facility] D[facility] - 6 6 [facility]/MODER SEVERITY [facility]OSP[facility] DAR - 6 6 [facility] OUTPATIEN [facility] UNIVERSIT - 6 6 [facility]96 [facility] 6 [facility] DAR - 6 6 [facility] EMERGENC[facility] 60368 DAR 6 6 [facility] V[facility] HIGH/URGE NT SEVERITY EMERGENCY 46069 [place] [facility] 6 6 MEDICAL JR [facility] VISIT SERV HIGH FOUNDATIO SEVERITY& N THREAT FUN OFFICE 77014 DEX[facility] RENTERIA JR OUTCHASE 6 6 MARIE DWI T VISIT 15 MINUTES OFFICE 62919 [facility] JR OUTPATIEN 5 5 MARIE DWI T VISIT 15 MINUTES HOSPITAL DAR - 5 5 [facility] OUTPATIEN [facility] DAR [facility] 5 5 [facility] OUTPATIEN [facility] DAR - 5 5 [facility] OUTPATIEN [facility] DAR [facility] 5 5 [facility] OUTPATIEN [facility] DAR - 5 5 [facility] OUTPATI[facility] DAR - 5 5 [facility] DAR - 5 5 [facility] OFFICE 52896 DEXTER RENTERIA JR OUTLESTEREN 5 5 MARIE DWI T VISIT 15 MINUTES OFFICE 63379 DEXTER RENTERIA JR OUTPATIEN 4 4 DWI DWI T VISIT 10 MINUTES HOSPITAL DAR - 2 2 [facility] OUTPATIEN [facility] T HOSPITAL DAR [facility] 2 2 [facility] OUTPATIEN [facility] T OFFICE 07064 DEXTER JR DEXTER JR OUTPATIEN 2 2 DWI DWI T VISIT 15 MINUTES HOSPITAL DAR - 2 2 [facility] 1 1 [facility] T OFFICE 31064 DEXTER DWI DEXTER DWI OUTPATIEN 1 1 T VISIT 15 MINUTES HOSPITAL DAR - 1 1 [facility] 32134 DEXTER DWI DEXTER DWI OUTPATIEN 1 1 T VISIT 15 MINUTES HOSPITAL DAR - 1 1 [facility] T OFFICE 12358 DEXTER DWI DEXTER DWI OUTPATIEN 1 1 T VISIT 15 MINUTES HOSPITAL DAR - 1 1 [facility] T OFFICE 46472 DEXTER DWI DEXTER DWI OUTPATIEN 1 1 T VISIT 15 MINUTES HOSPITAL DAR - 0 0 [facility] T OFFICE 30462 DEXTER DWI DEXTER DWI OUTPATIEN 0 0 T VISIT 15 MINUTES HOSPITAL DAR - 0 0 [facility] T OFFICE 55882 DEXTER DWI DEXTER DWI OUTPATIEN 0 0 T VISIT 15 MINUTES HOSPITAL DAR - 0 0 [facility] OUTPATIEN [facility] T HOSPITAL DAR - 0 0 [facility] 08332 DEXTER, DEXTER, OUTPATIEN 0 0 MARIE E MARIE E T VISIT 15 MINUTES HOSPITAL DAR - 0 0 [facility] 74567 DEXTER, DEXTER, OUTPATIEN 0 0 MARIE E MARIE E T VISIT 15 MINUTES EMERGENCY 55026 DAR 0 0 [facility]PART[facility] INC T VISIT HIGH/URGE NT SEVERITY EMERGENCY 64913 SKYLA TRUONG, DEPT 0 0 EMERGENCY AMINAH S VISIT SERVICES HIGH SEVERITY& ASSOCIATE THREAT S [facility] DAR - 0 0 [facility] OUTPATIEN INC T OFFICE 60687 DEX[facility] RENTERIA OUTPATIEN 0 0 MARIE E MARIE E T VISIT 15 MINUTES OFFICE 26578 [facility] OUTPATIEN 0 0 MARIE E MARIE E T VISIT 15 MINUTES OFFICE 21622 [facility] OUTPATIEN 9 9 MARIE E MARIE E T VISIT 15 MINUTES HOSPITAL DAR - 9 9 [facility] OUTPATIEN INC T OFFICE 17284 [facility] OUTPATIEN 9 9 MARIE E MARIE E T VISIT 15 MINUTES OFFICE 20575 [facility] OUTPATIEN 9 9 MARIE E MARIE E T VISIT 15 MINUTES OFFICE 99959 [facility] OUTPATIEN 9 9 MARIE E MARIE E T VISIT 15 MINUTES OFFICE 37014 [facility] OUTPATIEN 9 9 MARIE E MARIE E T VISIT 15 MINUTES OFFICE 17375 [place] 9 9 [facility] PATIENT 15 MIN OFFICE 15013 DEXTER RENTERIA OUTPATIEN 9 9 MARIE E MARIE E T VISIT 15 MINUTES OFFICE 49378 [facility] OUTPATIEN 9 9 MARIE E MARIE E T VISIT 25 MINUTES OFFICE 29506 [facility] OUTPATIEN 9 9 MARIE E MARIE E T VISIT 15 MINUTES OFFICE 25531 [facility] OUTPATIEN 9 9 MARIE E MARIE E T VISIT 15 MINUTES OFFICE 64728 [facility] OUTPATIEN 8 8 MARIE E MARIE E T VISIT 15 MINUTES OFFICE 00436 [facility] OUTPATIEN 8 8 MARIE E MARIE E T VISIT 15 MINUTES OFFICE 08851 [facility] OUTPATIEN 8 8 MARIE E MARIE E T VISIT 15 MINUTES OFFICE 88535 [facility] OUTPATIEN 8 8 MARIE E MARIE E T VISIT 15 MINUTES OFFICE 20727 [facility] OUTPATIEN 8 8 MARIE E MARIE E T VISIT 15 MINUTES
--- OUTSIDE RECORDS SUMMARY | 2016-12-05 22:32 | External Medical Summary Rpt ---
Author Author , Organization [employer] Address Unknown Phone Unavailable Care Team Providers Care Silk Printer Name Role Phone [facility] [place] Unavailable Unavailable INC, [facility] [place] [facility] BEINEKE [...] FIDENCIO CAMILO MELBA, CAMILO MELBA Unavailable Unavailable [facility] Unavailable [place], [facility] [place] [facility] Un[place] Un[place] [facility] ECKERLINE JR HANANE, Unavailable Unavailable ECKERLINE JR HANANE ESCOTT EDW, ESCOTT Unavailable Unavailable EDW AMINAH TRUONG, Unavailable Unavailable AMINAH TRUONG [facility] Unavailable Unavailable INC, [facility] Unavailable Unavailable HOSPITAL P, [facility] BENNETT AMY, BENNETT AMY Unavailable Unavailable BENNETT AMY, BENNETT AMY Unavailable Unavailable [facility], Unavailable Unavailable [facility] Unavailable Unavailable [facility], [facility] Unavailable Unavailable [facility], [facility], [facility] Unavailable Unavailable [...] EQUIPME JOSE BREAUX, Unavailable Unavailable JOSE BREAUX [facility], Unavailable Unavailable [facility] Unavailable Unavailable [place] [facility], [facility], Unavailable Unavailable [facility] Purpose Continuity of Care Document - 09-15-2007 through 2016 Problems Code Diagnosis DOS Provider Status J449 CHRONIC 09-13-[address] [facility] OBSTRUCTIVE HICO PULMONARY MEDICAL DISEASE UNS EQUIPME E039 HYPOTHYROID 05-25-2016 [facility] P I10 ESSENTIAL 05-25-2016 [place] [facility] HYPERTENSIO IMAGING ASS N R079 CHEST PAIN 05-25-2016 [place] UNSPECIFIED [facility] ASS [id number] LACERATION 04-26-2016 [facility] W/[facility]IGN [facility] BODY RT INC FOREARM INITIAL [id number] APHASIA 01-23-2016 [facility] CEREBRAL INFARCTION L85348 DYSPHASIA 01-23-2016 [facility] CEREBRAL INFARCTION R201 HYPOESTHESI 01-23-2016 [place] [facility] Z09 ENC F/U 01-23-2016 [facility] CMPL TX OTH THAN MALIG NEOPLSM [id number] CELLULITIS 12-24-2015 [facility]IC[facility] I361 NONRHEUMATI 12-16-2015 [facility] TRICUSPID SERV VALVE [facility] INSUFFICIEN CY R1310 DYSPHAGIA 12-16-2015 [facility] G8191 HEMIPLEGIA 12-15-2015 [facility] AMBULANCE AFFECTING SERVICE RIGHT DOMINANT SIDE I493 VENTRICULAR 12-15-2015 [facility] PREMATURE SERV DEPOLARIZAT FOUNDATION ION G85716 CEREBRAL 12-15-2015 [facility] IN[facility]CT D/T SERV THROMB LT FOUNDATION [...] FOLLOWING SERVICE CEREBRAL INFARCTION J349 UNSPECIFIED 12-15-2015 [facility] DISORDER SERV OF NOSE AND FOUNDATION NASAL SINUSES R200 ANESTHESIA 12-15-2015 [facility] SKIN MEDICAL IMAGING ASS G07765 FACIAL 12-15-2015 [facility] WEAKNESS [facility] INC R4701 APHASIA 12-15-2015 [facility] R479 UNSPECIFIED 12-15-2015 [facility] SPEECH SERV DISTURBANCE FOUNDATION S R531 WEAKNESS 12-15-2015 [facility] Z720 TOBACCO USE 12-15-2015 [facility] INC J209 ACUTE 08-11-2015 [facility] BRONCHITIS MARIE UNSPECIFIED Z6822 BODY MASS 08-11-2015 [facility] INDEX BMI MARIE 22.0-22.9 ADULT J441 CHRONIC 07-25-2015 [facility] OBSTRUCTIVE MARIE PULMONARY DZ W/EXACERBAT ION J440 COPD WITH 07-21-2015 [facility] RESPIRATORY INFECTION R05 COUGH 07-21-2015 [facility] [id number] UNS FX 05-27-2015 [place] LOWER RT MEDICAL RADIUS IMAGING ASS SUBSQT ENC CLOS FX RTN [id number] OTH 05-27-2015 [facility] EXTRAARTIC [facility] FX [...] BONE 4660 ACUTE 04-18-2015 [facility] BRONCHITIS MARIE 44866 OBSTRUCTIVE 04-18-2015 D[facility] CHRONIC MARIE BRONCHITIS WITH EXACERBATIO N 99099 FEVER 04-18-2015 [place] UNSPECIFIED MEDICAL IMAGING ASS V851 BODY MASS 04-18-2015 [facility] INDEX MARIE BETWEEN 19-24 ADULT 24879 PAIN IN 03-20-2015 [place] JOINT, MEDICAL FOREARM IMAGING ASS 496 CHRONIC 01-17-2015 [facility] OBSTRUCTION MEDICAL NEC EQUIPME 4019 UNSPECIFIED 11-27-2014 [facility] ESSENTIAL SERV HYPERTENSIO FOUNDATION N 35707 OTHER 11-27-2014 [facility] SPECIFIED SERV CARDIAC FOUNDATION DYSRHYTHMIA S [...] DEXTER JR CHRONIC DWI PULMONARY HEART DISEASE 94453 HEMATOMA 10-31-2013 DEXTER JR COMPLICATIN DWI G A PROCEDURE NEC 460 ACUTE 07-10-2013 DEXTER JR NASOPHARYNG DWI ITIS 7823 EDEMA 01-26-2012 APRIL LUBIN REYNA 2449 UNSPECIFIED 01-24-2012 DEXTER JR DWI HYPOTHYROID ISM 486 PNEUMONIA, 11-12-2011 [facility] ORGANISM [facility] UNSPECIFIED INC 48851 OTHER 11-12-2011 [place] DISEASES OF MEDICAL LUNG NOT IMAGING ASS ELSEWHERE CLASSIFIED 5180 PULMONARY 2011 [place] COLLAPSE [facility] 5183 PULMONARY 2011 [place] EOSINOPHILI MEDICAL A IMAGING ASS 5110 PLEURISY 07-26-2011 [facility] WITHOUT [facility] MENTION INC EFFUS/CURRE NT TB V0481 NEED 04-20-2011 DEXTER DWI PROPHYLACTI C VACCINATION &INOCULATIO N FLU 24980 ABDOMINAL 12-19-2010 [place] PAIN, MEDICAL UNSPECIFIED IMAGING ASS SITE 88532 OTHER 12-14-2010 D[facility]TER DWI CHRONIC OTITIS EXTERNA 2767 HYPERPOTASS 09-03-2010 [facility] EMIA [facility] INC 684 IMPETIGO 08-21-2010 DEXTER DWI 5990 URINARY 07-17-2010 DEXTER DWI TRACT INFECTION SITE NOT SPECIFIED 01238 MACULAR 06-12-2010 SABRINA CHAPAERATIO N OF RETINA UNSPECIFIED 7840 HEADACHE 05-06-2010 [facility] 2724 OTHER AND 03-02-2010 DEXTER DWI UNSPECIFIED HYPERLIPIDE SUNITA 3569 UNSPEC 03-02-2010 DEXTER DWI HEREDIT&IDI OPATHIC PERIPHERAL NEUROPATHY 99367 OTHER 03-02-2010 DEXTER DWI SPECIFIED CIRCULATORY SYSTEM DISORDERS V5869 LONG-TERM 03-02-2010 COMBINED (CURRENT) PHYSICIANS USE OF [place] OTHER MEDICATIONS 75342 CRAMP OF 02-24-2010 DEXTER, LIMB MARIE E 89122 SHORTNESS 11-21-2009 [facility] 29064 OTHER 11-21-2009 [facility] DYSPNEA AND AMBULANCE [place] [address] ACUT 10-03-2009 DEXTER, SUPPRATV MARIE E OTITIS MEDIA W/O SPONT RUP EARDRUM 4610 ACUTE 10-03-2009 DEXTER, MAXILLARY MARIE E SINUSITIS 6961 OTHER 12-24-2008 NEW PSORIASIS [facility] DISORDERS 6983 LICHENIFICA 12-24-2008 NEW TION AND [facility] SIMPLEX CHRONICUS 6272 SYMPTOMATIC 10-29-2008 DEXTER, MARIE E MENOPAUSAL/ FEMALE CLIMACTERIC STATES V1589 OTH SPEC 10-29-2008 [facility] HX [place] PRESENTING INC HAZARDS HEALTH OTH V762 SCREENING 10-29-2008 [facility] FOR [place] MALIGNANT INC NEOPLASM OF THE CERVIX V812 SCREENING 10-29-2008 DEXTER, OTHER&UNSPE MARIE E C CARDIOVASCU LAR CONDITIONS 45837 UNSPECIFIED 10-01-2008 DEXTER, INFECTIVE MARIE E OTITIS EXTERNA 7856 ENLARGEMENT 07-17-2008 DEXTER, OF LYMPH MARIE E NODES 56798 UNSPECIFIED 03-01-2008 DEXTER, GANGLION MARIE E J44.9 [...] 85%/>02 MEDICAL MEDICAL CONC AT EQUIPME EQUIPME [facility] FLW RATE BASIC 10-18-201 41007 DAR DODGE METABOLIC 6 [facility] PANEL INC INC CALCIUM TOTAL RADIOLOGI 39408 [facility] EXAM 6 MEDICAL TRAVIS CHEST 2 IMAGING VIEWS ASS FRONTAL&L ATERAL ECG 65444 DAR RENTERIA JR ROUTINE 6 [facility] W/LEAST P 12 LDS I&R ONLY COLLECTIO 25681 DAR DODGE N VENOUS 6 [facility] BLOOD INC INC VENIPUNCT URE ECG 14099 DAR DODGE ROUTINE 6 [facility] ECG INC INC W/LEAST 12 LDS TRCG ONLY W/O I&[place] [address] DAR DODGE TROPONIN 6 [facility] [place] [address] DAR DODGE THYROID 6 [facility] STIMULATI INC INC NG HORMONE TSH SIMPLE 03578 DAR DODGE REPAIR 6 [facility] SCALP/NEC INC INC K/AX/KARINA T/TRUNK 2.5CM/< HOSPITAL G0463 [facility] Y Y T [facility] HOSP[facility] VISIT ASSESS & MGMT PT SBSQ 72262 [facility] 6 MEDICAL JR LUT CARE/DAY SERV 25 FOUNDATIO MINUTES N SWALLOWIN 40140 [facility] 6 Y OF CAR W/CINERAD [place] IOGRAPY/V HOSPI IDRADIOG ECHO 97915 MALAIKA CHÁVEZ MARIELLA TTHRC R-T 6 MEDICAL 2D SERV W/WOM-MOD FOUNDATIO E COMPL N SPEC&COLR D ECG 77025 MALAIKA BRETT CHI ROUTINE 6 MEDICAL ECG SERV W/LEAST FOUNDATIO 12 LDS N I&[place] [address] MALAIKA ESCOTT ANGIOGRAP 6 MEDICAL EDW HY HEAD SERV W/CONTRAS FOUNDATIO [place] [address] MALAIKA ESCOTT ANGIOGRAP 6 MEDICAL EDW HY NECK SERV W/CONTRAS FOUNDATIO T/[place] [address] DAR DODGE TROPONIN 6 MEM HOSP MEM HOSP QUANTITAT INC INC CY GROUND A0425 [facility]TE [facility] MILEAGE 6 AMBULANCE AMBULANCE PER SERVICE SERVICE STATUTE MILE ECG 93066 D[facility] DOD[facility] ROUTINE 6 [facility]OS[facility] ECG INC INC W/LEAST 12 LDS TRCG ONLY W/O I&R AMB A0427 [facility] SERVICE 6 AMBULANCE AMBULANCE ALS SERVICE SERVICE EMERGENCY TRANSPORT LEVEL 1 RADIOLOGI 88513 [facility] TREY EXAMINATI SERV ON CHEST FOUNDATIO SINGLE N [place]IEW FRONTAL INITIAL 02044 [place] [facility] 6 MEDICAL JR LUT CARE/DAY SERV [address] [place] [address] [facility] R[facility] HEAD/BRAI 6 MEDICAL N W/O IMAGING CONTRAST ASS MATERIAL MRI BRAIN 15522 MALAIKA RASLAU BRAIN 6 MEDICAL FLA STEM W/O SERV CONTRAST FOUNDATIO MATERIAL N BLOOD 12225 [facility] DOD[facility] COUNT 6 [facility] HOS[facility] COMPLETE INC INC AUTO&AUTO DIFRNTL WBC COMPREHEN 41993 [facility] SIVE 6 [facility] H[facility]OS[facility] METABOLIC INC INC PANEL CREATINE 16711 DAR DODGE KINASE MB 6 MEM HOS[facility]OS[facility] FRACTION INC INC ONLY AMBULANCE A0428 [facility] SERVICE 6 AMBULANCE AMBULANCE BLS SERVICE SERVICE NONEMERGE NCY TRANSPORT THROMBOPL 26206 DAR DODGE ASTIN 6 MEM HOS[facility]OS[facility] TIME INC INC PARTIAL PLASMA/WH OLE BLOOD PROTHROMB 65919 DAR DODGE IN TIME 6 [facility] H[facility]OS[facility] INC INC CREATINE 72208 DAR DODGE KINASE 6 [place] [address] DAR DODGE INFUSION 5 MEM HOS[facility] THERAPY/P INC INC ROPHYLAXI S /DX 1ST TO 1 HR THERAPEUT 78525 DAR DODGE IC 5 [facility]OS[facility]OS[facility] INJECTION INC INC IV PUSH EACH NEW DRUG RADIOLOGI 96412 [facility] BEINE C EXAM 5 MEDICAL SANTI CHEST 2 IMAGING VIEWS ASS FRONTAL&L ATERAL INJECTION J1100 DEXTER RENTERIA 5 MARIE MARIE DEXAMETHO SONE SODIUM PHOSPHATE 1 MG RADEX 10-20-201 64239 [place] JOSEFA ALL WRIST 5 MEDICAL COMPLETE IMAGING MINIMUM 3 ASS VIEWS COLLECTIO 79327 DEXTER RENTERIA N VENOUS 5 MARIE MARIE BLOOD VENIPUNCT URE RADEX 20485 [facility] JOSEFA ALL WRIST 5 MEDICAL COMPLETE IMAGING MINIMUM 3 ASS VIEWS INJECTION J1100 DEXTER RENTERIA 5 MARIE MARIE DEXAMETHO SONE SODIUM PHOSPHATE 1 MG RADIOLOGI 86486 [place] JOSEFA ALL C EXAM 5 MEDICAL CHEST 2 IMAGING VIEWS ASS FRONTAL&L ATERAL RADEX 02030 [place] JOSEFA ALL WRIST 5 MEDICAL COMPLETE IMAGING MINIMUM 3 ASS VIEWS RADEX 89712 [place] KAILASH WRIST 5 MEDICAL TRAVIS COMPLETE IMAGING MINIMUM 3 ASS VIEWS CAST Q4022 [facility] SUPPLIES 5 PHYSICIAN PHYSICIAN SHORT ARM S GROUP S GROUP SPLINT ADULT FIBERGLAS S RADEX 85076 [place] JOSEFA ALL WRIST 5 MEDICAL COMPLETE IMAGING MINIMUM 3 ASS VIEWS O2 CONC 1 E1390 ORTI[facility] GALARZA PORT 5 HOME HOME 85%/>02 MEDICAL MEDICAL CONC AT EQUIPME EQUIPME [facility] FLW RATE O2 CONC 1 E1390 [facility] ALCANTAR DEL PORT 5 HOME HOME 85%/>02 MEDICAL MEDICAL CONC AT EQUIPME EQUIPME [facility] FLW RATE ECG 94037 [place] BRETT CHI ROUTINE 5 MEDICAL ECG SERV W/LEAST FOUNDATIO 12 LDS N I&R ONLY O2 CONC 1 E1390 [facility] GALARZA PORT 5 HOME HOME 85%/>02 MEDICAL MEDICAL CONC AT EQUIPME EQUIPME [facility] [place] [address] [facility] PATHOLOGY GROSS&GENNARO ROSCOPIC EXAM O2 CONC 1 E1390 [facility] GALARZA PORT 5 HOME HOME 85%/>02 MEDICAL MEDICAL CONC AT EQUIPME EQUIPME [facility] FLW RATE O2 CONC 1 E1390 [facility] GALARZA PORT 5 HOME HOME 85%/>02 MEDICAL MEDICAL CONC AT EQUIPME EQUIPME [facility] FLW RATE O2 CONC 1 E1390 [facility] GALARZA PORT 5 HOME HOME 85%/>02 MEDICAL MEDICAL CONC AT EQUIPME EQUIPME PRSC FLW RATE RADEX 46818 [facility] TAYLORCHER SPINE 5 MEDICAL TRAVIS LUMBOSACR [...] AT EQUIPME EQUIPME PRSC FLW RATE THERAPEUT 62414 DEXTER RENTERIA JR IC 4 DWI DWI [...] AT EQUIPME EQUIPME PRSC FLW RATE THERAPEUT 41981 DEXTER RENTERIA JR IC 4 DWI DWI PROPHYLAC TIC/DX INJECTION SUBQ/IM INJECTION J1040 DEXTER RENTERIA JR 4 DWI DWI METHYLPRE DNISOLONE ACETATE 80 MG O2 CONC 1 E1390 ORTIZ ORTIZ DEL PORT 4 HOME HOME 85%/>02 MEDICAL MEDICAL CONC AT EQUIPME EQUIPME PRSC FLW RATE INJECTION J1100 DEXTER RENTERIA JR 4 DWI DWI DEXAMETHO SONE SODIUM PHOSPHATE 1 MG THERAPEUT 98691 DEXTER RENTERIA JR IC 4 DWI DWI PROPHYLAC TIC/DX INJECTION SUBQ/IM O2 CONC 1 E1390 ORTIZ ORTIZ DEL PORT 4 HOME HOME 85%/>02 MEDICAL MEDICAL CONC AT EQUIPME EQUIPME PRSC FLW RATE O2 CONC 1 E1390 ORTIZ ORTIZ DEL PORT 3 HOME HOME 85%/>02 MEDICAL MEDICAL CONC AT EQUIPME EQUIPME PRSC FLW RATE THERAPEUT 67571 DEXTER RENTERIA JR IC 3 DWI DWI [...] FLW RATE O2 CONC 1 E1390 [facility] OTRIZ DEL PORT 3 HOME HOME 85%/>02 MEDICAL [...] AT EQUIPME EQUIPME PRSC FLW RATE ECHO 29287 APRIL CHEN [facility] R-T 2 JR REYNA JR REYNA 2D W/WOM-MOD E COMPL SPEC&COLR D RADIOLOGI 87004 DAR DODGE C EXAM 2 [facility] CHEST 2 INC INC VIEWS FRONTAL&L ATERAL RADIOLOGI 33959 DAR DODGE C EXAM 2 [facility] CHEST 2 INC INC VIEWS FRONTAL&L ATERAL RADIOLOGI 05918 DAR DODGE C EXAM 1 [facility] CHEST 2 INC INC VIEWS FRONTAL&L ATERAL INJECTION J1040 DEXTER RENTERIA JR 1 DWI DWI METHYLPRE DNISOLONE ACETATE 80 MG THERAPEUT 13550 DEXTER RENTERIA JR IC 1 DWI DWI PROPHYLAC TIC/DX INJECTION SUBQ/IM RADIOLOGI 22569 [facility] LINDER C EXAM 1 MEDICAL TRAVIS CHEST 2 IMAGING VIEWS ASS FRONTAL&L ATERAL COLLECTIO 51502 DAR DODGE N VENOUS 1 [facility] [place] [address] DAR DODGE THYROID 1 [facility] STIMULATI INC INC NG HORMONE TSH IIV 95334 DEXTER RENTERIA DWI VACCINE 1 PRESERV FREE INCREASED AG CONTENT IM ADMINISTR G0008 DEXTER GUERRREO ATION OF 1 INFLUENZA VIRUS VACCINE ADMN SET A7003 YOUR YOUR SM VOL 1 PHARMACY PHARMACY NONFILTR [employer] PNEUMAT NEBULIZR DISPBL ALBUTEROL J7620 YOUR YOUR TO 2.5 1 PHARMACY PHARMACY [facility] [employer] Ti Knight IPRATROPI UM BROM TO 0.5 MG PHRM Q0513 YOUR YOUR DISPENSIN 1 PHARMACY PHARMACY G FEE [employer] INHALATIO N RX; PER 30 DAYS 3D 06900 [place] KAILASH RENDERING 1 MEDICAL TRAVIS IMAGING W/INTERP& [place] [address] [place] [facility]AILASH ABDOMEN & 1 MEDICAL TRAVIS PELVIS IMAGING W/[place] [address] DAR DODGE THYROID 1 [facility] STIMULATI INC INC NG HORMONE TSH COLLECTIO 50308 DAR DODGE N VENOUS 1 [facility] BLOOD INC INC VENIPUNCT URE NEBULIZER E0570 [facility] ALCANTAR WITH 1 HOME MED HOME MED COMPRESSO EQUIP. L EQUIP. L R NEBULIZER E0570 [facility] ORTIZ WITH 1 HOME MED HOME MED COMPRESSO EQUIP. L EQUIP. L R NEBULIZER E0570 [facility] ALCANTAR WITH 1 HOME MED HOME MED COMPRESSO [place] [address] DAR DODGE THYROID 1 [facility] STIMULATI INC INC NG HORMONE TSH COLLECTIO 38203 DAR DODGE N VENOUS 1 [facility] BLOOD INC INC VENIPUNCT URE POTASSIUM 31055 DAR DODGE SERUM 1 [facility] PLASMA/[facility] INC INC OLE BLOOD NEBULIZER E0570 [facility] ALCANTAR WITH 1 HOME MED HOME MED COMPRESSO EQUIP. L EQUIP. L R RADIOLOGI 83467 [place] KAILASH C EXAM 0 MEDICAL TRAVIS CHEST 2 IMAGING VIEWS ASS FRONTAL&L ATERAL NEBULIZER E0570 [facility] ALCANTAR WITH 0 HOME MED HOME MED COMPRESSO EQUIP. L EQUIP. L R URNLS DIP 64423 DEXTER RENTERIA DWI 0 STICK/TAB LET RGNT NON-AUTO W/O MICRSCP NEBULIZER E0570 [facility] ALCANTAR WITH 0 HOME MED HOME MED COMPRESSO EQUIP. L EQUIP. L R PHRM Q0513 YOUR YOUR DISPENSIN 0 PHARMACY PHARMACY G FEE [employer] INHALATIO N RX; PER 30 DAYS ALBUTEROL J7620 YOUR YOUR TO 2.5 0 PHARMACY PHARMACY MG & [employer] IPRATROPI UM BROM TO 0.5 MG ADMN SET A7003 YOUR YOUR SM VOL 0 PHARMACY PHARMACY NONFILTR [employer] PNEUMAT NEBULIZR DISPBL OPHTH 00136 [facility] MEDICAL 0 XM&EVAL COMPRHNSV ESTAB PT 1/> NEBULIZER E0570 [facility] ALCANTAR WITH 0 HOME MED HOME MED COMPRESSO EQUIP. L EQUIP. L R 3D 32928 DAR DODGE RENDERING 0 [facility] W/INTERP INC INC & [place] [address] [place] KAILASH HEAD/BRAI 0 MEDICAL TRAVIS N W/O & IMAGING W/CONTRAS ASS T MATERIAL IIV3 21869 DEXTER RENTERIA DWI VACCINE 0 SPLIT VIRUS 0.5 ML DOSAGE IM USE COLLECTIO 31117 DAR DODGE N VENOUS 0 [facility] BLOOD INC INC VENIPUNCT URE THERAPEUT 93317 DEXTER RENTERIA DWI IC 0 PROPHYLAC TIC/DX INJECTION SUBQ/IM BASIC 84994 DAR DODGE METABOLIC 0 [facility] PANEL INC INC CALCIUM TOTAL NEBULIZER E0570 [facility] ALCANTAR WITH 0 HOME MED HOME MED COMPRESSO EQUIP. L EQUIP. L R NEBULIZER E0570 [facility] ALCANTAR WITH 0 HOME MED HOME MED COMPRESSO EQUIP. L EQUIP. L R COLLECTIO 91002 DAR DODGE N VENOUS 0 [facility] BLOOD INC INC VENIPUNCT URE POTASSIUM 66166 DAR DODGE SERUM 0 [facility] PLASMA/WH INC INC OLE BLOOD BASIC 29909 COMBINED COMBINED METABOLIC 0 PHYSICIAN PHYSICIAN PANEL S LA S LA CALCIUM TOTAL COLLECTIO 20424 DEXTER GUERRERO N VENOUS 0 [place] [address] COMBINED COMBINED THYROID 0 PHYSICIAN PHYSICIAN STIMULATI S LA S LA NG HORMONE TSH TRANSFERA 45294 COMBINED COMBINED SE 0 PHYSICIAN PHYSICIAN ALANINE S LA S LA AMINO ALT SGPT LIPID 77011 COMBINED COMBINED PANEL 0 PHYSICIAN PHYSICIAN S LA S LA BLOOD 76545 COMBINED COMBINED COUNT 0 PHYSICIAN PHYSICIAN COMPLETE S LA S LA AUTO&AUTO DIFRNTL WBC NEBULIZER E0570 [facility] ALCANTAR WITH 0 HOME MED HOME MED COMPRESSO EQUIP. EQUIP. R [facility] NEBULIZER E0570 ORTIZ ALCANTAR WITH 0 HOME MED HOME MED COMPRESSO EQUIP. EQUIP. R [facility] NEBULIZER E0570 ORTIZ LUNDBERGRELL WITH 0 HOME MED HOME MED COMPRESSO EQUIP. EQUIP. R [facility] PRESSURIZ 66683 DAR DODGE ED/NONPRE 0 [facility] SSURIZED INC INC INHALATIO N TREATMENT BRNCDILAT 13649 DAR DODGE RSPSE 0 [facility] SPMTRY INC INC PRE&POST- BRNCDILAT ADMN ECG 73175 DAR MCKEMIThao ROUTINE 0 [facility] W/LEAST PROF SERV 12 LDS I&R ONLY GROUND A0425 [facility] MILEAGE 0 AMBULANCE AMBULANCE PER [place] [address] DAR DODGE TROPONIN 0 [facility] QUANTITAT INC INC CY ECG 51780 DAR DODGE ROUTINE 0 [facility] ECG INC INC W/LEAST 12 LDS TRCG ONLY W/O I&R COMPREHEN 56725 DAR DODGE SIVE 0 [facility] METABOLIC INC INC PANEL CREATINE 96964 DAR B[place] KINASE MB 0 [facility] FRACTION INC INC ONLY BLOOD 13663 DAR DODGE COUNT 0 [facility] COMPLETE INC INC AUTO&AUTO DIFRNTL WBC RADIOLOGI 97384 Sally BETANCUR 0 MEDICAL FIDENCIO EXAMINATI IMAGING ON CHEST ASSOCIATE SINGLE S VIEW FRONTAL THER 81824 DAR DODGE PROPH/DX 0 [facility] NJX IV INC INC PUSH SINGLE/1S T SBST/DRUG AMB A0427 [facility] SERVICE 0 AMBULANCE AMBULANCE ALS SERVICE SERVICE EMERGENCY TRANSPORT LEVEL 1 CREATINE 12720 DAR DODGE KINASE 0 [facility] TOTAL INC INC ADMN SET A7003 [facility] ALCANTAR SM VOL 0 HOME MED HOME MED NONFILTR EQUIP. EQUIP. PNEUMAT Ti Knight [facility] NEBULIZR DISPBL NEBULIZER E0570 [facility] ALCANTAR WITH 0 HOME MED HOME MED COMPRESSO EQUIP. EQUIP. R Ti Knight [facility] ALBUTEROL J7620 YOUR YOUR TO 2.5 0 PHARMACY PHARMACY [facility] IPRATROPI UM BROM TO 0.5 MG ADMN SET A7003 YOUR YOUR SM VOL 0 PHARMACY PHARMACY NONFILTR [employer] PNEUMAT NEBULIZR DISPBL PHARM G0333 YOUR YOUR DISPEN 0 PHARMACY PHARMACY FEE INHAL Ti Knight [facility] RX; INITIAL 30-DAY SUPPLY INJECTION J1040 DEXTER RENTERIA, 0 MARIE E MARIE E METHYLPRE DNISOLONE ACETATE 80 MG THERAPEUT 26083 DEXTER RENTERIA, IC 0 MARIE E MARIE E PROPHYLAC TIC/DX INJECTION SUBQ/IM RADEX 43583 [facility]AROK [place] SPINE 9 [facility] LUMBOSACR INC INC AL MINIMUM 4 VIEWS IIV3 42534 DEXTER RENTERIA, VACCINE 9 MARIE E MARIE E SPLIT VIRUS 0.5 ML DOSAGE IM USE ADMINISTR G0008 DETXER RENTERIA, ATION OF 9 MARIE E MARIE E INFLUENZA VIRUS VACCINE INJECTION J1040 DEXTER RENTERIA, 9 MARIE E MARIE E METHYLPRE DNISOLONE ACETATE 80 MG THERAPEUT 77885 DEXTER RENTERIA, IC 9 MARIE E MARIE E PROPHYLAC TIC/DX INJECTION SUBQ/IM INJECTION J1040 DEXTER RENTERIA, 9 MARIE E MARIE E METHYLPRE DNISOLONE ACETATE 80 MG INJECTION J1040 DEXTER RENTERIA, 9 MARIE E MARIE E METHYLPRE DNISOLONE ACETATE 80 MG URNLS DIP 06242 DEXTER RENTERIA, 9 MARIE E MARIE E STICK/TAB LET RGNT NON-AUTO W/O MICRSCP SCR G0123 [facility] CYTOPATH 9 [facility] CERV/VAG INC INC SCR CYTOTECH UND PHYS SUPV BLOOD 32266 DEXTER RENTERIA OCCULT 9 MARIE E MARIE E PEROXIDAS E ACTV QUAL FECES 1 DETER LIPID 71876 COMBINED COMBINED PANEL 9 PHYSICIAN PHYSICIAN S LAB S LAB TRANSFERA 56410 COMBINED COMBINED SE 9 PHYSICIAN PHYSICIAN ALANINE S LAB S LAB AMINO ALT SGPT COLLECTIO 01112 D[facility] RENTERIA N VENOUS 9 MARIE E MARIE [place] [address] COMBINED COMBINED THYROID 9 PHYSICIAN PHYSICIAN STIMULATI S LAB S LAB NG HORMONE TSH ECG 12174 DEXTER RENTERIA, ROUTINE 9 MARIE E MARIE E ECG W/LEAST 12 LDS W/I&R BLOOD 06489 COMBINED COMBINED COUNT 9 PHYSICIAN PHYSICIAN COMPLETE S LAB S LAB AUTO&AUTO DIFRNTL WBC BASIC 32083 COMBINED COMBINED METABOLIC 9 PHYSICIAN PHYSICIAN PANEL S LAB S LAB CALCIUM TOTAL ADMINISTR G0008 DEXTER RENTERIA, ATION OF 8 MARIE E MARIE E INFLUENZA VIRUS VACCINE IIV3 39591 DEXTER RENTERIA, VACCINE 8 MARIE E MAREI E SPLIT VIRUS 0.5 ML DOSAGE IM USE INJECTION J1040 DEXTER RENTERIA, 8 MARIE E MARIE E METHYLPRE DNISOLONE ACETATE 80 MG Encounters Encounter Start End Date Code Location Performer Type Date [facility] DAR - 6 6 [facility]MODER SEVERITY [facility] DAR - 6 6 [facility]PATIEN [facility] - 6 6 [facility] OFFICE 60802 [facility] 6 6 MEDIC[facility] T [facility] DAR [facility] 6 6 [facility] OUTPATIEN [facility] EMERGENCY 03681 DAR 6 6 [facility] VISIT HIGH/URGE NT SEVERITY EMERGENCY 42088 [place] [facility] 6 6 MEDICAL JR [facility] VISIT SERV HIGH FOUNDATIO SEVERITY& N THREAT FUN OFFICE 82940 DEXTER RENTERIA JR OUTCHASE 6 6 MARIE DWI T VISIT 15 MINUTES OFFICE 35564 D[facility]TER RENTERIA JR OUTPATIEN 5 5 MARIE DWI T VISIT 15 MINUTES HOSPITAL DAR - 5 5 [facility]IEN [facility] DAR - 5 5 [facility] DAR - 5 5 [facility] DAR - 5 5 [facility] DAR - 5 5 [facility] DAR - 5 5 [facility] DAR - 5 5 [facility] OUTPATIEN [facility] OFFICE 42931 DEXTER RENTERIA JR OUTLESTEREN 5 5 MARIE DWI T VISIT 15 MINUTES OFFICE 26307 D[facility]TER RENTER[facility] JR OUTPATIEN 4 4 DWI DWI T VISIT 10 MINUTES HOSPITAL DAR - 2 2 [facility]IEN [facility] [facility] T [facility] DAR - 2 2 [facility] OUTPATIEN [facility] T OFFICE [id number] DEXTER JR DEXTER JR OUTPATIEN 2 2 [facility] T VISIT 15 MINUTES [facility]OSP[facility] DAR - 2 2 [facility] DAR [facility] 1 1 [facility] T OFFICE 01329 DEXTER DWI DEXTER DWI OUTPATIEN 1 1 T VISIT 15 MINUTES HOSPITAL DAR [facility] 1 1 [facility] 71523 DEXTER DWI DEXTER DWI OUTPATIEN 1 1 T VISIT 15 MINUTES HOSPITAL DAR - 1 1 [facility] T OFFICE 59826 DEXTER DWI DEXTER DWI OUTPATIEN 1 1 T VISIT 15 MINUTES HOSPITAL DAR [facility] 1 1 [facility] T OFFICE 13834 DEXTER DWI DEXTER DWI OUTPATIEN 1 1 T VISIT 15 MINUTES HOSPITAL DAR [facility] 0 0 [facility] T OFFICE 97554 DEXTER DWI DEXTER DWI OUTPATIEN 0 0 T VISIT 15 MINUTES HOSPITAL DAR - 0 0 [facility] T OFFICE 79729 DEXTER DWI DEXTER DWI OUTPATIEN 0 0 T VISIT 15 MINUTES HOSPITAL DAR - 0 0 [facility] OUTPATIEN [facility] T HOSPITAL DAR - 0 0 [facility] 91750 DEXTER, DEXTER, OUTPATIEN 0 0 MARIE E MARIE E T VISIT 15 MINUTES HOSPITAL DAR - 0 0 [facility] 91826 DEXTER, DEXTER, OUTPATIEN 0 0 MARIE E MARIE E T VISIT 15 MINUTES EMERGENCY 21405 DAR 0 0 [facility] T VISIT HIGH/URGE NT SEVERITY EMERGENCY 14833 SKYLA TRUONG, DEPT 0 0 EMERGENCY AMINAH S VISIT SERVICES HIGH SEVERITY& ASSOCIATE THREAT S [facility] DAR - 0 0 [facility] T OFFICE 70327 D[facility]TER RENTERIA OUTPATIEN 0 0 MARIE E MARIE E T VISIT 15 MINUTES OFFICE 83144 [facility]ETR [facility] OUTPATIEN 0 0 MARIE E MARIE E T VISIT 15 MINUTES OFFICE 86727 [facility] OUTPATIEN 9 9 MARIE E MARIE E T VISIT 15 MINUTES [facility]OSP[facility] DAR - 9 9 [facility] T OFFICE 59320 [facility] OUTPATIEN 9 9 MARIE E MARIE E T VISIT 15 MINUTES OFFICE 92524 [facility] OUTPATIEN 9 9 MARIE E MARIE E T VISIT 15 MINUTES OFFICE 00094 [facility] OUTPATIEN 9 9 MARIE E MARIE E T VISIT 15 MINUTES OFFICE 67232 [facility] OUTPATIEN 9 9 MARIE E MARIE E T VISIT 15 MINUTES OFFICE 76945 [place] 9 9 [facility] NEW/ESTAB [facility] PATIENT 15 MIN OFFICE 76150 D[facility] RENTERIA OUTPATIEN 9 9 MARIE E MARIE E T VISIT 15 MINUTES OFFICE 10026 [facility]ENTERIA OUTPATIEN 9 9 MARIE E MARIE E T VISIT 25 MINUTES OFFICE 22228 [facility]ENTER[facility] OUTPATIEN 9 9 MARIE E MARIE E T VISIT 15 MINUTES OFFICE 85551 [facility] OUTPATIEN 9 9 MARIE E MARIE E T VISIT 15 MINUTES OFFICE 69120 [facility]ENTER[facility] OUTPATIEN 8 8 MARIE E MARIE E T VISIT 15 MINUTES OFFICE 15864 [facility] OUTPATIEN 8 8 MARIE E MARIE E T VISIT 15 MINUTES OFFICE 63195 [facility] OUTPATIEN 8 8 MARIE E MARIE E T VISIT 15 MINUTES OFFICE 25622 [facility] OUTPATIEN 8 8 MARIE E MARIE E T VISIT 15 MINUTES OFFICE 50572 [facility] OUTPATIEN 8 8 MARIE E MARIE E T VISIT 15 MINUTES
--- OUTSIDE RECORDS SUMMARY | 2016-12-05 22:38 | External Medical Summary Rpt ---
Author Author , Organization [employer] Address Unknown Phone Unavailable Care Team Providers Care Smoke Tester Name Role Phone [facility] [employer] Unavailable Unavailable INC, [facility] BEINEKE SANTI, BEINEKE Unavailable Unavailable SANTI RIVERO, RIVERO Unavailable Unavailable RIVERO ALL, RIVERO ALL Unavailable Unavailable [facility] Unavailable Unavailable SERVICE, [facility] Unavailable [facility]available SERVICE, [facility] Unavailable Unavailable [place], [facility] Unavailable Unavailable [place], [facility] Unavailable Unavailable LAB, [facility] KAILASH TRAVIS, Unavailable Unavailable KAILASH TRAVIS KAILASHFIDENCIO ZHANG, Unavailable Unavailable KAILASH, FIDENCIO CAMILO MELBA, CAMILO MELBA Unavailable Unavailable [facility] [place], [facility] [place] [facility] [place] [facility] [facility] [place] ECKERLINE JR HANANE, Unavailable Unavailable ECKERLINE JR HANANE ESCOTT EDW, ESCOTT Unavailable Unavailable EDW AMINAH TRUONG, Unavailable Unavailable AMINAH TRUONG [facility] Unavailable Unavailable INC, [facility] Unavailable Unavailable HOSPITAL P, [facility] BENNETT AMY, BENNETT AMY Unavailable Unavailable BENNETT AMY, BENNETT AMY Unavailable Unavailable [facility], Unavailable Unavailable [facility] Unavailable Unavailable [facility], [facility] Unavailable Unavailable [facility], [facility], [facility] Unavailable Unavailable [place] [...] JOSE BREAUX, Unavailable Unavailable JOSE BREAUX H [facility], Unavailable Unavailable [facility] Unavailable Unavailable [facility], Unavailable Unavailable [facility] Purpose Continuity of Care Document - 09-15-2007 through 2016 Problems Code Diagnosis DOS Provider Status J449 CHRONIC 09-13-2016 [facility] OBSTRUCTIVE [place] PULMONARY MEDICAL DISEASE UNS EQUIPME E039 HYPOTHYROID 05-25-2016 [facility] U[facility]CC[facility]IZENS [facility] P I10 ESSENTIAL 05-25-2016 [facility]YPERT[facility]O [facility] N R079 CHEST PAIN 05-25-2016 [facility]NSPECIFIED [facility] [id number] LACERATION 04-26-2016 [facility] W/O FOREIGN [facility] BODY RT INC FOREARM INITIAL E85415 APHASIA 01-23-2016 [facility] CEREBRAL INFARCTION Z64656 DYSPHASIA 01-23-2016 [facility] CEREBRAL INFARCTION R201 HYPOESTHESI 01-23-2016 [facility] Z09 ENC F/U 01-23-2016 [facility] CMPL TX OTH THAN MAL NEOPLSM D35124 CELLULITIS 12-24-2015 [facility] I361 NONRHEUMATI 12-16-2015 [facility] TRIC[facility] SERV [facility] INSUFFICIEN CY R1310 DYSPHAGIA 12-16-2015 [facility] HOSPI G8191 HEMIPLEGIA 12-15-2015 [facility] AFFECTING SERVICE RIGHT DOMINANT SIDE I493 VENTRICULAR 12-15-2015 [facility] DEPOLARIZAT [facility] ION P04019 CEREBRAL 12-15-2015 [facility] D/T SERV THROMB LT FOUNDATION [...] FOLLOWING SERVICE CEREBRAL INFARCTION J349 UNSPECIFIED 12-15-2015 [facility] DISORDER [facility] OF NOSE AND [facility] NASAL SINUSES R200 ANESTHESIA 12-15-2015 [facility] SKIN MEDICAL IMAGING ASS R87566 FACIAL 12-15-2015 [facility] WEAKNESS [facility] INC R4701 APHASIA 12-15-2015 [facility] R479 UNSPECIFIED 12-15-2015 [facility] SPEECH [facility] DISTURBANCE [facility] S R531 WEAKNESS 12-15-2015 [facility] Z720 TOBACCO USE 12-15-2015 [facility] INC J209 ACUTE 08-11-2015 [facility] BRONCHITIS MARIE UNSPECIFIED Z6822 BODY MASS 08-11-2015 [facility] INDEX BMI MARIE 22.0-22.9 ADULT J441 CHRONIC 07-25-2015 [facility] OBSTRUCTIVE MARIE PULMONARY DZ W/EXACERBAT ION J440 COPD WITH 07-21-2015 [facility] ACUTE LOWER [facility] INC RESPIRATORY INFECTION R05 COUGH 07-21-2015 [facility] [id number] UNS FX 05-27-2015 [facility] LOWER RT MEDICAL RADIUS IMAGING ASS SUBSQT ENC CLOS FX RTN [id number] OTH 05-27-2015 [facility] EXTRAARTIC [facility] FX [...] BONE 4660 ACUTE 04-18-2015 [facility] BRONCHITIS MARIE 13624 OBSTRUCTIVE 04-18-2015 [facility] CHRONIC MARIE BRONCHITIS WITH EXACERBATIO N 22259 FEVER 04-18-2015 [facility] UNSPECIFIED [facility]ICAL IMAGING ASS V851 BODY MASS 04-18-2015 [facility] INDEX MARIE BETWEEN 19-24 ADULT 12496 PAIN IN 03-20-2015 [facility] JOINT, MEDICAL FOREARM IMAGING ASS 496 CHRONIC 01-17-2015 [facility] OBSTRUCTION MEDICAL NEC EQUIPME 4019 UNSPECIFIED 11-27-2014 [place] [facility] ESSENTIAL SERV HYPERTENSIO FOUNDATION N 95701 OTHER 11-27-2014 [place] [facility] SPECIFIED SERV CARDIAC [...] DEXTER JR CHRONIC DWI PULMONARY HEART DISEASE 32870 HEMATOMA 10-31-2013 D[facility]TER JR COMPLICATIN DWI G A PROCEDURE NEC 460 ACUTE 07-10-2013 D[facility] JR NASOPHARYNG DWI ITIS 7823 EDEMA 01-26-2012 APRIL LUBIN REYNA 2449 UNSPECIFIED 01-24-2012 D[facility]TER JR DWI HYPOTHYROID ISM 486 PNEUMONIA, 11-12-2011 [facility] ORGANISM [facility] UNSPECIFIED INC 27537 OTHER 11-12-2011 [facility] DISEASES OF MEDICAL LUNG NOT IMAGING ASS ELSEWHERE CLASSIFIED 5180 PULMONARY 2011 [facility] COLLAPSE [facility] 5183 PULMONARY 2011 [facility] EOSINOPHILI MEDICAL A IMAGING ASS 5110 PLEURISY 07-26-2011 [facility] WITHOUT [facility] MENTION INC EFFUS/CURRE NT TB V0481 NEED 04-20-2011 D[facility]TER DWI PROPHYLACTI C VACCINATION &INOCULATIO N FLU 25462 ABDOMINAL 12-19-2010 [facility] PAIN, MEDICAL UNSPECIFIED IMAGING ASS SITE 39667 OTHER 12-14-2010 [facility] DWI CHRONIC OTITIS EXTERNA 2767 HYPERPOTASS 09-03-2010 [facility] EMIA [facility] INC 684 IMPETIGO 08-21-2010 [facility] DWI 5990 URINARY 07-17-2010 [facility] DWI TRACT INFECTION SITE NOT SPECIFIED 44048 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 UNSPECIFIED 7840 HEADACHE 05-06-2010 [facility] 2724 OTHER AND 03-02-2010 [facility] DWI UNSPECIFIED HYPERLIPIDE SUNITA 3569 UNSPEC 03-02-2010 [facility] DWI HEREDIT&IDI OPATHIC PERIPHERAL NEUROPATHY 02781 OTHER 03-02-2010 [facility] DWI SPECIFIED CIRCULATORY SYSTEM DISORDERS V5869 LONG-TERM 03-02-2010 [facility] (CURRENT) PHYSICI[facility] USE OF [place] OTHER MEDICATIONS 02462 CRAMP OF 02-24-2010 DEXTER, LIMB MARIE E 02871 SHORTNESS 11-21-2009 [facility] 81006 OTHER 11-21-2009 [facility] DYSPNEA AND AMBULANCE [place] [address] ACUT 10-03-2009 DEXTER, SUPPRATV MARIE E OTITIS MEDIA W/O SPONT RUP EARDRUM 4610 ACUTE 10-03-2009 DEXTER, MAXILLARY MARIE E SINUSITIS 6961 OTHER 12-24-2008 NEW PSORIASIS [facility] P[facility] DISORDERS 6983 LICHENIFICA 12-24-2008 NEW TION AND [facility] P[facility] SIMPLEX CHRONICUS 6272 SYMPTOMATIC 10-29-2008 DEXTER, MARIE E MENOPAUSAL/ FEMALE CLIMACTERIC STATES V1589 OTH SPEC 10-29-2008 [facility] PERS HX [facility] PRESENTING INC HAZARDS HEALTH OTH V762 SCREENING 10-29-2008 [facility] FOR [facility] MALIGNANT INC NEOPLASM OF THE CERVIX V812 SCREENING 10-29-2008 DEXTER, OTHER&UNSPE MARIE E C CARDIOVASCU LAR CONDITIONS 96298 UNSPECIFIED 10-01-2008 DEXTER, INFECTIVE MARIE E OTITIS EXTERNA 7856 ENLARGEMENT 07-17-2008 DEXTER, OF LYMPH MARIE E NODES 99017 UNSPECIFIED 03-01-2008 DEXTER, GANGLION MARIE E Medications [...] 85%/>02 MEDICAL MEDICAL CONC AT EQUIPME EQUIPME [facility] FLW RATE BASIC 87647 [facility] METABOLIC 6 [facility] [place] [address] D[facility] TROPONIN 6 [facility] QUANTITAT INC INC CY RADIOLOGI 48131 [facility] KAILASH C EXAM 6 MEDICAL TRAVIS CHEST 2 IMAGING VIEWS ASS FRONTAL&[place] [address] [facility] THYROID 6 [facility] STIMULATI INC INC NG HORMONE TSH ECG 32244 DAR DEXTER LUBIN ROUTINE 6 [facility] W/LEAST P 12 LDS I&R ONLY ECG 65180 D[facility] ROUTINE 6 [facility] ECG INC INC W/LEAST 12 LDS TRCG ONLY W/O I&R COLLECTIO 64626 [facility] N VENOUS 6 [facility] BLOOD INC INC VENIPUNCT URE SIMPLE 95361 [facility] REPAIR 6 [facility] SCALP/NEC INC INC K/AX/KARINA T/TRUNK 2.5CM/< HOSPITAL G0463 [facility] 6 Y Y T [facility] HOSPITAL VISIT ASSESS & MGMT PT SBSQ 80761 [facility] 6 MEDICAL JR LUT CARE/DAY SERV 25 FOUNDATIO MINUTES N ECHO 98726 MALAIKA ZAMBRANONG MARIELLA TTHRC R-T 6 MEDICAL 2D SERV W/WOM-MOD FOUNDATIO E COMPL N SPEC&COLR D SWALLOWIN 13387 [facility] FUN 6 Y OF CAR W/CINERAD [facility] IOGRAPY/V HOSPI IDRADIOG COMPREHEN 03980 D[facility] SIVE 6 [facility] METABOLIC INC INC PANEL ECG 15353 MALAIKA BRETT CHI ROUTINE 6 MEDICAL ECG SERV W/LEAST FOUNDATIO 12 LDS N I&R ONLY CREATINE 65759 [facility] D[facility] KINASE MB 6 [facility] [place] [address] MALAIKA ESCOTT ANGIOGRAP 6 MEDICAL EDW HY HEAD SERV W/CONTRAS FOUNDATIO T/NONCONT N RAST CREATINE 70576 [facility] KINASE 6 [facility] TOTAL INC INC AMB A0427 [facility] 6 AMBULANCE AMBULANCE ALS SERVICE SERVICE EMERGENCY TRANSPORT LEVEL 1 THROMBOPL 63274 [facility] ASTIN 6 [facility] TIME INC INC PARTIAL PLASMA/WH OLE BLOOD INITIAL 37577 [facility] 6 MEDICAL JR LUT CARE/DAY SERV 30 [place] [address] D[facility] D[facility] TROPONIN 6 [facility] QUANTITAT INC INC CY BLOOD 73449 [facility] COUNT 6 [facility] COMPLETE INC INC AUTO&AUTO DIFRNTL WBC AMBULANCE A0428 [facility] 6 AMBULANCE AMBULANCE BLS SERVICE SERVICE NONEMERGE NCY TRANSPORT PROTHROMB 35156 [facility] IN TIME 6 [facility] INC INC GROUND A0425 [facility] [place] 6 AMBULANCE AMBULANCE [place] [address] [facility] RIVERO HEAD/BRAI 6 MEDICAL N W/O IMAGING CONTRAST ASS MATERIAL MRI BRAIN 54009 MALAIKA RASLAU BRAIN 6 MEDICAL FLA STEM W/O SERV CONTRAST FOUNDATIO MATERIAL N RADIOLOGI 09853 [place] [facility] C 6 MEDICAL TREY EXAMINATI SERV ON CHEST FOUNDATIO SINGLE N VIEW FRONTAL ECG 10470 [facility] ROUTINE 6 [facility] ECG INC INC W/LEAST 12 LDS TRCG ONLY W/O I&[place] [address] [place] ESCOTT ANGIOGRAP 6 MEDICAL EDW HY NECK SERV W/CONTRAS [place] [address] [facility] INFUSION 5 [facility] THERAPY/P INC INC ROPHYLAXI S /DX 1ST TO 1 HR THERAPEUT 39630 [facility] IC 5 [facility] INJECTION INC INC IV PUSH EACH NEW DRUG RADIOLOGI 26528 [facility] ESTHER C EXAM 5 MEDICAL SANTI CHEST 2 IMAGING VIEWS ASS FRONTAL&L ATERAL INJECTION J1100 [facility] RENTERIA 5 MARIE MARIE DEXAMETHO SONE SODIUM PHOSPHATE 1 MG RADEX 47163 [facility] RIVERO ALL WRIST 5 MEDICAL COMPLETE IMAGING MINIMUM 3 ASS VIEWS COLLECTIO 91961 D[facility]TER RENTERIA N VENOUS 5 MARIE MARIE BLOOD VENIPUNCT URE RADEX 10177 [facility] RIV[facility] ALL WRIST 5 MEDICAL COMPLETE IMAGING MINIMUM 3 ASS VIEWS INJECTION J1100 DEXTER RENTERIA 5 MARIE MARIE DEXAMETHO SONE SODIUM PHOSPHATE 1 MG RADIOLOGI 75034 [place] RIVERO ALL C EXAM 5 MEDICAL CHEST 2 IMAGING VIEWS ASS FRONTAL&L ATERAL RADEX 13226 [facility] JOSEFA ALL WRIST 5 MEDICAL COMPLETE IMAGING MINIMUM 3 ASS VIEWS RADEX 19541 [facility] KAILASH WRIST 5 MEDICAL TRAVIS COMPLETE IMAGING MINIMUM 3 ASS VIEWS CAST Q4022 [facility] SUPPLIES 5 PHYSICIAN PHYSICIAN SHORT ARM S GROUP S GROUP SPLINT ADULT FIBERGLAS S RADEX 67420 [facility] RIV[facility] ALL WRIST 5 MEDICAL COMPLETE IMAGING MINIMUM 3 ASS VIEWS O2 CONC 1 E1390 [facility] GALARZA PORT 5 HOME HOME 85%/>02 MEDICAL MEDICAL CONC AT EQUIPME EQUIPME PRSC FLW RATE O2 CONC 1 E1390 [facility] ALCANTAR DEL PORT 5 HOME HOME 85%/>02 MEDICAL MEDICAL CONC AT EQUIPME EQUIPME PRSC FLW RATE ECG 66212 [place] BRETT CHI ROUTINE 5 MEDICAL ECG SERV W/LEAST FOUNDATIO 12 LDS N I&R ONLY O2 CONC 1 E1390 [facility] ALCANTAR DEL PORT 5 HOME HOME 85%/>02 MEDICAL MEDICAL CONC AT EQUIP[place] [address] [facility], SURG 5 [facility] PATHOLOGY GROSS&GENNARO ROSCOPIC EXAM O2 [...] AT EQUIPME EQUIPME PRSC FLW RATE RADEX 42789 [facility] KAILASH SPINE 5 MEDICAL TRAVIS LUMBOSACR IMAGING [...] AT EQUIPME EQUIPME PRSC FLW RATE THERAPEUT 85243 DEXTER RENTERIA JR IC 4 DWI DWI [...] AT EQUIPME EQUIPME PRSC FLW RATE THERAPEUT 49201 DEXTER RENTERIA JR IC 4 DWI DWI PROPHYLAC TIC/DX INJECTION SUBQ/IM INJECTION J1040 DEXTER LUBIN DEXTER JR 4 DWI DWI METHYLPRE DNISOLONE ACETATE 80 MG O2 CONC 1 E1390 [facility] ORTIZ DEL PORT 4 HOME HOME 85%/>02 MEDICAL MEDICAL CONC AT EQUIPME EQUIPME PRSC FLW RATE THERAPEUT 44172 DEXTER RENTERIA JR IC 4 DWI DWI [...] AT EQUIPME EQUIPME PRSC FLW RATE THERAPEUT 49591 DEXTER RENTERIA JR IC 3 DWI DWI [...] AT EQUIPME EQUIPME PRSC FLW RATE ECHO 29021 JOONMAGDAHOLLIE DEANNAROBYNThao [facility] R-T 2 JR REYNA JR REYNA 2D W/WOM-MOD E COMPL SPEC&COLR D RADIOLOGI 94209 D[facility] DODGE C EXAM 2 [facility] CHEST 2 INC INC VIEWS FRONTAL&L ATERAL RADIOLOGI 21588 D[facility] DODGE C EXAM 2 [facility] CHEST 2 INC INC VIEWS FRONTAL&L ATERAL RADIOLOGI 99803 D[facility] DODGE C EXAM 1 [facility] CHEST 2 INC INC VIEWS FRONTAL&L ATERAL THERAPEUT 74399 DEXTER RENTERIA JR IC 1 DWI DWI PROPHYLAC TIC/DX INJECTION SUBQ/IM INJECTION J1040 DEXTER RENTERIA JR 1 DWI DWI METHYLPRE DNISOLONE ACETATE 80 MG RADIOLOGI 56884 [facility] LINDER C EXAM 1 MEDICAL TRAVIS CHEST 2 IMAGING VIEWS ASS FRONTAL&[place] [address] D[facility] D[facility] THYROID 1 [facility] STIMULATI INC INC NG HORMONE TSH COLLECTIO 19494 [facility] D[facility] N VENOUS 1 [facility] BLOOD INC INC VENIPUNCT URE IIV 87369 D[facility]TER GUERRERO VACCINE 1 PRESERV FREE INCREASED AG CONTENT IM ADMINISTR G0008 DEXTER GUERRERO ATION OF 1 INFLUENZA VIRUS VACCINE PHRM Q0513 YOUR YOUR DISPENSIN 1 PHARMACY PHARMACY G FEE Backlift INHALATIO N RX; PER 30 DAYS ADMN SET A7003 YOUR YOUR SM VOL 1 PHARMACY PHARMACY NONFILTR [employer] PNEUMAT NEBULIZR DISPBL ALBUTEROL J7620 YOUR YOUR TO 2.5 1 PHARMACY PHARMACY [facility] IPRATROP[place] [address] [place] [address] [facility] ABDOMEN & 1 MEDICAL TRAVIS PELVIS IMAGING W/O ASS CONTRAST MATERIAL 3D 49728 [facility] RENDERING 1 MEDICAL TRAVIS IMAGING W/INTERP& [place] [address] D[facility] D[facility] THYROID 1 [facility] STIMULATI INC INC NG HORMONE TSH COLLECTIO 50081 D[facility] DOD[facility] N VENOUS 1 [facility] BLOOD INC INC VENIPUNCT URE NEBULIZER E0570 [facility] ALCANTAR WITH 1 HOME MED HOME MED COMPRESSO EQUIP. L EQUIP. L R NEBULIZER E0570 [facility] ALCANTAR WITH 1 HOME MED HOME MED COMPRESSO EQUIP. L EQUIP. L R NEBULIZER E0570 [facility] ALCANTAR WITH 1 HOME MED HOME MED COMPRESSO [place] [address] DAR DODGE THYROID 1 [facility] STIMULATI INC INC NG HORMONE TSH POTASSIUM 69883 [facility] DODGE SERUM 1 [facility] PLASMA/WH INC INC OLE BLOOD COLLECTIO 20047 [facility] DODGE N VENOUS 1 [facility] BLOOD INC INC VENIPUNCT URE NEBULIZER E0570 [facility] ALCANTAR WITH 1 HOME MED HOME MED COMPRESSO EQUIP. L EQUIP. L R RADIOLOGI 23776 [facility] C EXAM 0 MEDICAL TRAVSI CHEST 2 IMAGING VIEWS ASS FRONTAL&L ATERAL NEBULIZER E0570 [facility] ALCANTAR WITH 0 HOME MED HOME MED COMPRESSO EQUIP. L EQUIP. L R URNLS DIP 67441 DEXTER RENTERIA DWI 0 STICK/TAB LET RGNT NON-AUTO W/O MICRSCP NEBULIZER E0570 [facility] ALCANT[facility] WITH 0 HOME MED HOME MED COMPRESSO EQUIP. L EQUIP. L R ADMN SET A7003 YOUR YOUR SM VOL 0 PHARMACY PHARMACY NONFILTR [facility] PNEUMAT NEBULIZR DISPBL PHRM Q0513 YOUR YOUR DISPENSIN 0 PHARMACY PHARMACY G FEE Backlift INHALATIO N RX; PER 30 DAYS ALBUTEROL J7620 YOUR YOUR TO 2.5 0 PHARMACY PHARMACY [facility] IPRATROPI UM BROM TO 0.5 MG OPHTH 61723 [facility] MEDICAL 0 XM&EVAL COMPRHNSV ESTAB PT 1/> NEBULIZER E0570 [facility] ALCANTAR WITH 0 HOME MED HOME MED [place] [address] [facility] HEAD/BRAI 0 MEDICAL TRAVIS N W/O & IMAGING W/CONTRAS ASS T MATERIAL 3D 67084 [facility] RENDERING 0 [facility] W/INTERP INC INC & POSTPROCE SS SUPERVISI ON THERAPEUT 00490 DEXTER RENTERIA DWI IC 0 PROPHYLAC TIC/DX INJECTION SUBQ/IM BASIC 61137 [facility] METABOLIC 0 [facility] PANEL INC INC CALCIUM TOTAL IIV3 76966 DEXTER RENTERIA DWI VACCINE 0 SPLIT VIRUS 0.5 ML DOSAGE IM USE COLLECTIO 21927 [facility] N VENOUS 0 [facility] BLOOD INC INC VENIPUNCT URE NEBULIZER E0570 [facility] ALCANTAR WITH 0 HOME MED HOME MED COMPRESSO EQUIP. L EQUIP. L R NEBULIZER E0570 [facility] ALCANTAR WITH 0 HOME MED HOME MED COMPRESSO EQUIP. L EQUIP. L R POTASSIUM 90612 [facility] SERUM 0 [facility] PLASMA/WH INC INC OLE BLOOD COLLECTIO 80551 [facility] N VENOUS 0 [facility] BLOOD INC INC VENIPUNCT URE COLLECTIO 28814 DEXTER RENTERIA DWI N VENOUS 0 BLOOD VENIPUNCT URE LIPID 92240 COMBINED COMBINED PANEL 0 PHYSICIAN PHYSICIAN S LA S LA BLOOD 92044 COMBINED COMBINED COUNT 0 PHYSICIAN PHYSICIAN COMPLETE S LA S LA AUTO&AUTO DIFRNTL WBC BASIC 64461 COMBINED COMBINED METABOLIC 0 PHYSICIAN PHYSICIAN PANEL S LA S LA CALCIUM TOTAL TRANSFERA 02973 COMBINED COMBINED SE 0 PHYSICIAN PHYSICIAN [place]ANINE [place] [address] COMBINED COMBINED THYROID 0 PHYSICIAN PHYSICIAN STIMULATI S LA S LA NG HORMONE TSH NEBULIZER E0570 [facility] ALCANT[facility] WITH 0 HOME MED HOME MED COMPRESSO EQUIP. E[facility]. [facility] NEBULIZER E0570 [facility] LUNDBERGRELL WITH 0 HOME MED HOME MED COMPRESSO EQUIP. EQUIP. R [facility] NEBULIZER E0570 [facility] LUNDBERGRELL WITH 0 HOME MED HOME MED COMPRESSO EQUIP. EQUIP. R [facility] BRNCDILAT 78930 DAR DODGE RSPSE 0 [facility] SPMTRY INC INC PRE&POST- BRNCDILAT ADMN PRESSURIZ 06741 DAR DODGE ED/NONPRE 0 [facility] SSURIZED INC INC INHALATIO N TREATMENT GROUND A0425 [facility] 0 AMBULANCE AMBULANCE [place] [address] D[facility] D[facility] TROPONIN 0 [facility] QUANTITAT INC INC CY BLOOD 52203 [facility] COUNT 0 [facility] COMPLETE INC INC AUTO&AUTO DIFRNTL WBC THER 89071 D[facility] PROPH/DX 0 [facility] NJX IV INC INC PUSH SINGLE/1S T SBST/DRUG AMB A0427 [facility] 0 AMBULANCE AMBULANCE ALS SERVICE SERVICE EMERGENCY TRANSPORT LEVEL 1 ECG 59195 DAR CHEN ROUTINE 0 [facility] W/LEAST PROF SERV 12 LDS I&R ONLY COMPREHEN 35871 [facility] SIVE 0 [facility] METABOLIC INC INC PANEL CREATINE 05627 DAR DODGE KINASE MB 0 [facility] FRACTION INC INC ONLY CREATINE 58652 [facility] KINASE 0 [facility] TOTAL INC INC ECG 01815 [facility] ROUTINE 0 [facility] ECG INC INC W/LEAST 12 LDS TRCG ONLY W/O I&R RADIOLOGI 54930 [facility] C[facility]ONA 0 MEDICAL FIDENCIO EXAMINATI IMAGING ON CHEST ASSOCIATE SINGLE S VIEW FRONTAL ADMN SET A7003 [facility] ALCANTAR SM VOL 0 HOME MED HOME MED NONFILTR EQUIP. EQUIP. PNEUMAT [employer] NEBULIZR DISPBL NEBULIZER E0570 [facility] ALCANTAR WITH 0 HOME MED HOME MED COMPRESSO EQUIP. E[facility]. [facility] ADMN SET A7003 YOUR YOUR SM VOL 0 PHARMACY PHARMACY NONFILTR [employer] [facility] PNEUMAT NEBULIZR DISPBL PHARM G0333 YOUR YOUR DISPEN 0 PHARMACY PHARMACY FEE INHAL [employer] [facility] RX; INITIAL 30-DAY SUPPLY ALBUTEROL J7620 YOUR YOUR TO 2.5 0 PHARMACY PHARMACY [facility] IPRATROPI UM BROM TO 0.5 MG INJECTION J1040 DEXTER RENTERIA, 0 MARIE E MARIE E METHYLPRE DNISOLONE ACETATE 80 MG THERAPEUT 92037 DEXTER RENTERIA, IC 0 MARIE E MARIE E PROPHYLAC TIC/DX INJECTION SUBQ/IM RADEX 47101 [facility] SPINE 9 [facility] LUMBOSACR INC INC AL MINIMUM 4 VIEWS ADMINISTR G0008 DEXTER RENTERIA, ATION OF 9 MARIE E MARIE E INFLUENZA VIRUS VACCINE IIV3 58897 DEXTER RENTERIA, VACCINE 9 MARIE E MARIE E SPLIT VIRUS 0.5 ML DOSAGE IM USE INJECTION J1040 DEXTER RENTERIA, Francisco MARIE E MARIE E METHYLPRE DNISOLONE ACETATE 80 MG THERAPEUT 86876 DEXTER RENTERIA, IC 9 MARIE E MARIE E PROPHYLAC TIC/DX INJECTION SUBQ/IM INJECTION J1040 DEXTER RENTERIA, 9 MARIE E MARIE E METHYLPRE DNISOLONE ACETATE 80 MG INJECTION J1040 DEXTER RENTERIA, 9 MARIE E MARIE E METHYLPRE DNISOLONE ACETATE 80 MG URNLS DIP 70776 DEXTER RENTERIA, 9 MARIE E MARIE E STICK/TAB LET RGNT NON-AUTO W/O MICRSCP SCR G0123 AMERIPATH AMERIPATH CYTOPATH 9 [facility] CERV/VAG INC INC [place] [address] COMBINED COMBINED THYROID 9 PHYSICIAN PHYSICIAN STIMULATI S LAB S LAB NG HORMONE TSH TRANSFERA 69264 COMBINED COMBINED SE 9 PHYSICIAN PHYSICIAN ALANINE S LAB S LAB AMINO ALT SGPT COLLECTIO 02369 DEXTER RENTERIA, N VENOUS 9 MARIE E MARIE E BLOOD VENIPUNCT URE BLOOD 76303 DEXTER RENTERIA, OCCULT 9 MARIE E MARIE E PEROXIDAS E ACTV QUAL FECES 1 DETER BASIC 94427 COMBINED COMBINED METABOLIC 9 PHYSICIAN PHYSICIAN PANEL S LAB S LAB CALCIUM TOTAL LIPID 48915 COMBINED COMBINED PANEL 9 PHYSICIAN PHYSICIAN S LAB S LAB BLOOD 66416 COMBINED COMBINED COUNT 9 PHYSICIAN PHYSICIAN COMPLETE S LAB S LAB AUTO&AUTO DIFRNTL WBC ECG 85373 DEXTER RENTERIA, ROUTINE 9 MARIE E MARIE E ECG W/LEAST 12 LDS W/I&R ADMINISTR G0008 DEXTER RENTERIA, ATION OF 8 MARIE E MARIE E INFLUENZA VIRUS VACCINE IIV3 48843 DEXTER RENTERIA, VACCINE 8 MARIE E MARIE E SPLIT VIRUS 0.5 ML DOSAGE IM USE INJECTION J1040 DEXTER RENTERIA, 8 MARIE E MARIE E METHYLPRE DNISOLONE ACETATE 80 MG Encounters Encounter Start End Date Code Location Performer Type Date [facility] DAR - 6 6 [facility] 6 6 [facility] DAR 6 6 [facility] VISIT [facility]OW/MODER SEVERITY [facility]OSPITAL UNIVERSIT - 6 6 [facility] T OFFICE 09815 [facility] 6 [address] DAR [facility] 6 6 [facility] [address] DAR 6 6 [facility] VISIT HIGH/URGE NT SEVERITY EMERGENCY 10255 [place] [facility] 6 6 MEDICAL JR [place] VISIT SERV HIGH FOUNDATIO SEVERITY& N THREAT FUN OFFICE 75148 DEXTER RENTERIA JR [facility] 6 6 MARIE DWI T VISIT 15 MINUTES OFFICE 80896 [facility] 15 [facility]ES [facility]PITAL DAR - 5 5 [facility] 5 [facility] - 5 [facility] - 5 [facility] - 5 5 [facility] OFF[facility] 89077 DEXTER RENTERIA JR OUTPATIEN 5 5 MARIE DWI T VISIT 15 MINUTES HOSPITAL DAR - 5 5 [facility] 19749 DEXTER RENTERIA JR OUTPATIEN 4 4 DWI DWI T [facility]ISIT 10 MINUTES HOSPITAL DAR - 2 2 [facility] 2 2 [facility] DAR [facility] 2 2 [facility] T OFFICE 67680 DEXTER JR DEXTER JR OUTPATIEN 2 2 DWI DWI T VISIT 15 MINUTES HOSPITAL DAR - 1 1 [facility] [facility] T OFFICE [id number] DEXTER DWI DEXTER DWI OUTPATIEN 1 1 T VISIT 15 MINUTES HOSPITAL DAR - 1 1 [facility] OUTPATIEN [facility] T OFFICE 55202 DEXTER DWI DEXTER DWI OUTPATIEN 1 1 T VISIT 15 MINUTES OFFICE 89982 DEXTER DWI DEXTER DWI OUTPATIEN 1 1 T VISIT 15 MINUTES HOSPITAL DAR - 1 1 [facility] 39166 DEXTER DWI DEXTER DWI OUTPATIEN 1 1 T VISIT 15 MINUTES [facility] DAR - 0 0 [facility] 48514 DEXTER DWI [facility]EXTER DWI OUTPATIEN 0 0 T VISIT 15 MINUTES HOSPITAL DAR - 0 0 [facility] 50863 DEXTER DWI DEXTER DWI OUTPATIEN 0 0 T VISIT 15 MINUTES HOSPITAL DAR [facility] 0 0 [facility] OUTPATIEN [facility] DAR - 0 0 [facility] OUTPATIEN [facility] T OFFICE 48854 DEXTER, DEXTER, OUTPATIEN 0 0 MARIE E MARIE E T VISIT 15 MINUTES HOSPITAL DAR - 0 0 [facility] OUTPATIEN [facility] T OFFICE 47085 DEXTER, DEXTER, OUTPATIEN 0 0 MARIE E MARIE E T VISIT 15 MINUTES [facility] - 0 0 [facility] T EMERGENCY 38366 SKYLA TRUONG, DEPT 0 0 EMERGENCY [facility] S VISIT SERVICES HIGH SEVERITY& ASSOCIATE THREAT S FUN EMERGENCY 79521 DAR 0 0 [facility] DEPART[facility] INC T VISIT HIGH/URGE NT SEVERITY OFFICE 86773 DEXTER RENTERIA OUTPATIEN 0 0 MARIE E MARIE E T VISIT 15 MINUTES OFFICE 61209 [facility]ENTER[facility] OUTPATIEN 0 0 MARIE E MARIE E T VISIT 15 MINUTES [facility] DAR - 9 9 [facility] T OFFICE 18363 D[facility] RENTER[facility] OUTPATIEN 9 9 MARIE E MARIE E T VISIT 15 MINUTES OFFICE 10789 [facility] OUTPATIEN 9 9 MARIE E MARIE E T VISIT 15 MINUTES OFFICE 22428 [facility] OUTPATIEN 9 9 MARIE E MARIE E T VISIT 15 MINUTES OFFICE 62467 [facility] OUTPATIEN 9 9 MARIE E MARIE E T VISIT 15 MINUTES OFFICE 94711 [facility] OUTPATIEN 9 9 MARIE E MARIE E T VISIT 15 MINUTES OFFICE 89039 [place]QUE 9 9 [facility] PATIENT 15 MIN OFFICE 38901 DEXTER RENTERIA OUTPATIEN 9 9 MARIE E MARIE E T VISIT 15 MINUTES OFFICE 59801 [facility] OUTPATIEN 9 9 MARIE E MARIE E T VISIT 25 MINUTES OFFICE 89119 [facility] OUTPATIEN 9 9 MARIE E MARIE E T VISIT 15 MINUTES OFFICE 30023 [facility] OUTPATIEN 9 9 MARIE E MARIE E T VISIT 15 MINUTES OFFICE 50099 [facility] OUTPATIEN 8 8 MARIE E MARIE E T VISIT 15 MINUTES OFFICE 42653 [facility] OUTPATIEN 8 8 MARIE E MARIE E T VISIT 15 MINUTES OFFICE 72671 [facility] OUTPATIEN 8 8 MARIE E MARIE E T VISIT 15 MINUTES OFFICE 69781 [facility] OUTPATIEN 8 8 MARIE E MARIE E T VISIT 15 MINUTES OFFICE 38798 [facility] OUTPATIEN 8 8 MARIE E MARIE E T VISIT 15 MINUTES
--- OUTSIDE RECORDS SUMMARY | 2016-12-05 22:38 | External Medical Summary Rpt ---
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 Name Role Phone [facility] Unavailable Unavailable INC, [facility] BEINEKE SANTI, BEINEKE Unavailable Unavailable SANTI RIVERO, RIVERO Unavailable Unavailable RIVERO ALL, RIVERO ALL Unavailable Unavailable [facility] Unavailable Unavailable SERVICE, [facility] Unavailable Unavailable SERVICE, [facility] Unavailable [place], [facility] Unavailable Unavailable [place], [facility] Unavailable Unavailable LAB, [facility] KAILASH TRAVIS, Unavailable Unavailable KAILASH TRAVIS KAILASHFIDENCIO ZHANG, Unavailable Unavailable KAILASH, FIDENCIO CAMILO MELBA, CAMILO MELBA Unavailable Unavailable [facility] Unavailable [place], [facility] [place] [facility] Un[place] [facility] [place] ECKERLINE JR HANANE, Unavailable Unavailable ECKERLINE JR HANANE ESCOTT EDW, ESCOTT Unavailable Unavailable EDW AMINAH TRUONG, Unavailable Unavailable AMINAH TRUONG [facility], [facility] Unavailable Unavailable HOSPITAL P, [facility] BENNETT AMY, BENNETT AMY Unavailable Unavailable BENNETT AMY, BENNETT AMY Unavailable Unavailable [facility], Unavailable Unavailable [facility] Unavailable Unavailable [facility], [facility] Unavailable Unavailable [facility], [facility], [facility] Unavailable Unavailable [place] [...] JOSE BREAUX, Unavailable Unavailable JOSE BREAUX H [facility], Unavailable Unavailable [facility] Unavailable [facility]available [facility], Unavailable Unavailable [facility] Purpose Continuity of Care Document - 09-15-2007 through 2016 Problems Code Diagnosis DOS Provider Status J449 CHRONIC 09-13-2016 [facility] [place] PULMONARY MEDICAL DISEASE UNS EQUIPME E039 HYPOTHYROID 05-25-2016 [facility] I10 ESSENTIAL 05-25-2016 [place] [facility] HYPERTENSIO IMAGING ASS N R079 CHEST PAIN 05-25-2016 [place] [place] UNSPECIFIED [facility] IM[facility]ING ASS [id number] LACERATION 04-26-2016 [facility] W/O FOREIGN [facility] BODY RT INC FOREARM INITIAL U24323 APHASIA 01-23-2016 [facility] CEREBRAL INFARCTION [id number] DYSPHASIA 01-23-2016 [facility] CEREBRAL INFARCTION R201 HYPOESTHESI 01-23-2016 [place] [facility] Z09 ENC F/U 01-23-2016 [facility] CMPL TX OTH THAN MAL NEOPLSM Q18419 CELLULITIS 12-24-2015 [facility] I361 NONRHEUMATI 12-16-2015 [place] [facility] TRICUSPID SERV VALVE [facility] INSUFFICIEN [place] R1310 DYSPHAGIA 12-16-2015 [facility] HOSPI G8191 HEMIPLEGIA 12-15-2015 [facility] AFFECTING SERVICE RIGHT DOMINANT SIDE I493 VENTRICULAR 12-15-2015 [place] [facility] PREMATURE SERV DEPOLARIZAT FOUNDATION ION N52402 CEREBRAL 12-15-2015 [place] [facility] INFARCT D/T SERV THROMB LT FOUNDATION [...] FOLLOWING SERVICE CEREBRAL INFARCTION J349 UNSPECIFIED 12-15-2015 [place] [facility] DISORDER SERV OF NOSE AND FOUNDATION NASAL SINUSES R200 ANESTHESIA 12-15-2015 [facility] SKIN MEDICAL IMAGING ASS A33769 FACIAL 12-15-2015 [facility] WEAKNESS [facility] INC R4701 APHASIA 12-15-2015 [place] [facility] R479 UNSPECIFIED 12-15-2015 [place] [facility] SPEECH SERV DISTURBANCE [facility]OUND[facility] S R531 WEAKNESS 12-15-2015 [facility] Z720 TOBACCO USE 12-15-2015 [facility] INC J209 ACUTE 08-11-2015 [facility] BRONCHITIS MARIE UNSPECIFIED Z6822 BODY MASS 08-11-2015 [facility] INDEX BMI MARIE 22.0-22.9 ADULT J441 CHRONIC 07-25-2015 [facility] OBSTRUCTIVE MARIE PULMONARY DZ W/EXACERBAT ION J440 COPD WITH 07-21-2015 [facility] ACUTE LOWER [facility] INC RESPIRATORY INFECTION R05 COUGH 07-21-2015 [facility] [id number] UNS FX 05-27-2015 [place] LOWER RT MEDICAL RADIUS IMAGING ASS SUBSQT ENC CLOS FX RTN [id number] OTH 05-27-2015 [facility] EXTRAARTIC [facility] FX [...] INC FRACTURE LOWER ARM V5419 AFTERCARE 04-25-2015 [place] HEALING [facility]ICAL TRAUMATIC IMAGING ASS FRACTURE OTHER BONE 4660 ACUTE 04-18-2015 [facility] BRONCHITIS MARIE 05493 OBSTRUCTIVE 04-18-2015 [facility] CHRONIC MARIE BRONCHITIS WITH EXACERBATIO N 37984 FEVER 04-18-2015 [place] UNSPECIFIED MEDICAL IMAGING ASS V851 BODY MASS 04-18-2015 [facility] INDEX MARIE BETWEEN 19-24 ADULT 02562 PAIN IN 03-20-2015 [place] JOINT, MEDICAL FOREARM IMAGING ASS 496 CHRONIC 01-17-2015 [facility] OBSTRUCTION MEDICAL NEC EQUIPME 4019 UNSPECIFIED 11-27-2014 [place] [facility] ESSENTIAL SERV HYPERTENSIO FOUNDATION N 67860 OTHER 11-27-2014 [place] MEDICAL SPECIFIED SERV CARDIAC FOUNDATION DYSRHYTHMIA S 1844 MALIGNANT 10-25-2014 [facility], NEOPLASM OF LLC VULVA UNSPECIFIED SITE 7213 LUMBOSACRAL 08-16-2014 [place] [facility] SPONDYLOSIS IMAGING ASS WITHOUT MYELOPATHY 7242 LUMBAGO 08-16-2014 [facility] MARIE 7384 ACQUIRED 08-16-2014 [place] SPONDYLOLIS MEDICAL THESIS IMAGING ASS 8472 LUMBAR 08-16-2014 [facility] SPRAIN AND MARIE STRAIN V8522 BODY MASS 08-16-2014 [facility] INDEX MARIE 26.0-26.9 ADULT 4169 UNSPECIFIED 02-26-2014 [facility] JR CHRONIC DWI PULMONARY HEART DISEASE 89774 HEMATOMA 10-31-2013 [facility] JR COMPLICATIN DWI G A PROCEDURE NEC 460 ACUTE 07-10-2013 [facility] JR NASOPHARYNG DWI ITIS 7823 EDEMA 01-26-2012 APRIL LUBIN REYNA 2449 UNSPECIFIED 01-24-2012 [facility] JR DWI HYPOTHYROID ISM 486 PNEUMONIA, 11-12-2011 [facility] ORGANISM [facility] UNSPECIFIED INC 85806 OTHER 11-12-2011 [place] DISEASES OF MEDICAL LUNG NOT IMAGING ASS ELSEWHERE CLASSIFIED 5180 PULMONARY 2011 [place] COLLAPSE MEDICAL IMAGING ASS 5183 PULMONARY 2011 [place] EOSINOPHILI MEDICAL A IMAGING ASS 5110 PLEURISY 07-26-2011 [facility] WITHOUT [facility] MENTION INC EFFUS/CURRE NT TB V0481 NEED 04-20-2011 [facility] DWI PROPHYLACTI C VACCINATION &INOCULATIO N FLU 21373 ABDOMINAL 12-19-2010 [place] PAIN, MEDICAL UNSPECIFIED IMAGING ASS SITE 91436 OTHER 12-14-2010 [facility] DWI CHRONIC OTITIS EXTERNA 2767 HYPERPOTASS 09-03-2010 [facility] EMIA [facility] INC 684 IMPETIGO 08-21-2010 [facility] DWI 5990 URINARY 07-17-2010 [facility] DWI TRACT INFECTION SITE NOT SPECIFIED 09583 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 65059 OTHER 11-21-2009 [facility] [place] [address] ACUT 10-03-2009 D[facility]TER, SUPPRATV MARIE E OTITIS MEDIA W/O SPONT RUP EARDRUM 4610 ACUTE 10-03-2009 DEXTER, MAXILLARY MARIE E SINUSITIS 6961 OTHER 12-24-2008 [facility] DISORDERS 6983 LICHENIFICA 12-24-2008 [facility] SIMPLEX CHRONICUS 6272 SYMPTOMATIC 10-29-2008 D[facility], MARIE E MENOPAUSAL/ FEMALE CLIMACTERIC STATES V1589 OTH SPEC 10-29-2008 [facility] PERS HX [place] PRESENTING INC HAZARDS HEALTH OTH V762 SCREENING 10-29-2008 [facility] FOR [place] MALIGNANT INC NEOPLASM OF THE CERVIX V812 SCREENING 10-29-2008 D[facility]TER, OTHER&UNSPE MARIE E C CARDIOVASCU LAR CONDITIONS 19828 UNSPECIFIED 10-01-2008 [facility], INFECTIVE MARIE E OTITIS EXTERNA 7856 ENLARGEMENT 07-17-2008 [facility], OF LYMPH MARIE E NODES 00789 UNSPECIFIED 03-01-2008 [facility], GANGLION MARIE E Medications [...] 85%/>02 MEDICAL MEDICAL CONC AT EQUIPME EQUIPME [facility] FLW RATE BASIC 20233 [facility] METABOLIC 6 [facility] [place] [address] D[facility] TROPONIN 6 [facility] QUANTITAT INC INC CY RADIOLOGI 67511 [place] KAILASH C EXAM 6 MEDICAL TRAVIS CHEST 2 IMAGING VIEWS ASS FRONTAL&[place] [address] D[facility] THYROID 6 [facility] STIMULATI INC INC NG HORMONE TSH ECG 14195 DAR DEXTER LUBIN ROUTINE [address] [facility] W/LEAST P 12 LDS I&R ONLY ECG 06825 D[facility] ROUTINE 6 [facility] ECG INC INC W/LEAST 12 LDS TRCG ONLY W/O I&R COLLECTIO 82773 [facility] N VENOUS 6 [facility] BLOOD INC INC VENIPUNCT URE SIMPLE 14931 D[facility] REPAIR 6 [facility] SCALP/NEC INC INC K/AX/KARINA T/TRUNK 2.5CM/< HOSPITAL G0463 [facility] 6 Y Y T CLIN [facility]ITAL HOSPITAL VISIT ASSESS & MGMT PT SBSQ 68975 [facility] 6 MEDICAL JR LUT CARE/DAY SERV 25 FOUNDATIO MINUTES N ECHO 44822 MALAIKA ZAMBRANONG MARIELLA TTHRC R-T 6 MEDICAL 2D SERV W/WOM-MOD FOUNDATIO E COMPL N SPEC&COLR D SWALLOWIN 77993 [facility] FUN 6 Y OF CAR W/CINERAD [place] IOGRAPY/V HOSPI IDRADIOG COMPREHEN 39096 D[facility] SIVE 6 [facility] METABOLIC INC INC PANEL ECG 05160 MALAIKA BRETT CHI ROUTINE 6 MEDICAL ECG SERV W/LEAST FOUNDATIO 12 LDS N I&R ONLY CREATINE 54731 [facility] D[facility] KINASE MB 6 [facility] [place] [address] MALAIKA ESCOTT ANGIOGRAP 6 MEDICAL EDW HY HEAD SERV W/CONTRAS FOUNDATIO T/NONCONT N RAST CREATINE 44458 [facility] KINASE 6 [facility] TOTAL INC INC AMB A0427 [facility] SERVICE 6 AMBULANCE AMBULANCE ALS SERVICE SERVICE EMERGENCY TRANSPORT LEVEL 1 THROMBOPL 80656 [facility] ASTIN 6 [facility] TIME INC INC PARTIAL PLASMA/WH OLE BLOOD INITIAL 87795 [place] [facility] 6 MEDICAL JR LUT CARE/DAY SERV 30 [place] [address] [facility] TROPONIN 6 [facility] QUANTITAT INC INC CY BLOOD 95584 [facility] COUNT 6 [facility] COMPLETE INC INC AUTO&AUTO DIFRNTL WBC AMBULANCE A0428 [facility] SERVICE 6 AMBULANCE AMBULANCE BLS SERVICE SERVICE NONEMERGE NCY TRANSPORT PROTHROMB 80589 [facility] IN TIME 6 [facility] INC INC GROUND A0425 [facility] MILEA 6 AMBULANCE AMBULANCE [place] [address] [place] RIVERO HEAD/BRAI 6 MEDICAL N W/O IMAGING CONTRAST ASS MATERIAL MRI BRAIN 04929 MALAIKA RASLAU BRAIN 6 MEDICAL FLA STEM W/O SERV CONTRAST FOUNDATIO MATERIAL N RADIOLOGI 66393 [place] NICKELS C 6 MEDICAL TREY EXAMINATI SERV ON CHEST FOUNDATIO SINGLE N VIEW FRONTAL ECG 73936 D[facility] ROUTINE 6 [facility] ECG INC INC W/LEAST 12 LDS TRCG ONLY W/O I&[place] [address] [place] ESCOTT ANGIOGRAP 6 MEDICAL EDW HY NECK SERV W/CONTRAS [place] T/[place] [address] [facility] INFUSION 5 [facility] H[facility] THERAPY/P INC INC ROPHYLAXI S /DX 1ST TO 1 HR THERAPEUT 29277 D[facility] IC 5 [facility] INJECTION INC INC IV PUSH EACH NEW DRUG RADIOLOGI 40401 [place] ESTHER C EXAM 5 MEDICAL SANTI CHEST 2 IMAGING VIEWS ASS FRONTAL&L ATERAL INJECTION J1100 [facility] RENTERIA 5 MARIE MARIE DEXAMETHO SONE SODIUM PHOSPHATE 1 MG RADEX 55661 [place] RIVERO ALL WRIST 5 MEDICAL COMPLETE IMAGING MINIMUM 3 ASS VIEWS COLLECTIO 58937 DEXTER RENTERIA N VENOUS 5 MARIE MARIE BLOOD VENIPUNCT URE RADEX 96468 [facility] R[facility] WRIST 5 MEDICAL COMPLETE IMAGING MINIMUM 3 ASS VIEWS INJECTION J1100 DEXTER RENTERIA 5 MARIE MARIE DEXAMETHO SONE SODIUM PHOSPHATE 1 MG RADIOLOGI 42628 [place] RIVERO ALL C EXAM 5 MEDICAL CHEST 2 IMAGING VIEWS ASS FRONTAL&L ATERAL RADEX 44510 [place] JOSEFA ALL WRIST 5 MEDICAL COMPLETE IMAGING MINIMUM 3 ASS VIEWS RADEX 69493 [place] KAILASH WRIST 5 MEDICAL TRAVIS COMPLETE IMAGING MINIMUM 3 ASS VIEWS CAST Q4022 [facility] SUPPLIES 5 PHYSICIAN PHYSICIAN SHORT ARM S GROUP S GROUP SPLINT ADULT FIBERGLAS S RADEX 70595 [facility] RIV[facility] ALL WRIST 5 MEDICAL COMPLETE IMAGING MINIMUM 3 ASS VIEWS O2 CONC 1 E1390 [facility] GALARZA PORT 5 HOME HOME 85%/>02 MEDICAL MEDICAL CONC AT EQUIPME EQUIPME PRSC FLW RATE O2 CONC 1 E1390 [facility] ALCANTAR DEL PORT 5 HOME HOME 85%/>02 MEDICAL MEDICAL CONC AT EQUIPME EQUIPME PRSC FLW RATE ECG 91909 [place] BRETT CHI ROUTINE 5 MEDICAL ECG SERV W/LEAST FOUNDATIO 12 LDS N I&R ONLY O2 CONC 1 E1390 [facility] ALCANTAR DEL PORT 5 HOME HOME 85%/>02 MEDICAL MEDICAL CONC AT EQUIP[place] [address] [facility], SURG 5 [facility] PATHOLOGY GROSS&GENNARO ROSCOPIC EXAM O2 CONC [...] AT EQUIPME EQUIPME PRSC FLW RATE RADEX 79538 [place] KAIL[facility] SPINE 5 MEDICAL TRAVIS LUMBOSACR IMAGING [...] AT EQUIPME EQUIPME PRSC FLW RATE THERAPEUT 01507 DEXTER RENTERIA JR IC 4 DWI DWI [...] AT EQUIPME EQUIPME PRSC FLW RATE THERAPEUT 22984 DEXTER RENTERIA JR IC 4 DWI DWI PROPHYLAC TIC/DX INJECTION SUBQ/IM INJECTION J1040 DEXTER LUBIN DEXTER JR 4 DWI DWI METHYLPRE DNISOLONE ACETATE 80 MG O2 CONC 1 E1390 [facility] ORTIZ DEL PORT 4 HOME HOME 85%/>02 MEDICAL MEDICAL CONC AT EQUIPME EQUIPME PRSC FLW RATE THERAPEUT 61496 DEXTER RENTERIA JR IC 4 DWI DWI [...] AT EQUIPME EQUIPME PRSC FLW RATE THERAPEUT 06932 DEXTER RENTERIA JR IC 3 DWI DWI [...] AT EQUIPME EQUIPME PRSC FLW RATE ECHO 38692 [facility] R-T 2 JR REYNA JR REYNA 2D W/WOM-MOD E COMPL SPEC&COLR D RADIOLOGI 86755 [facility] DODGE C EXAM 2 [facility] CHEST 2 INC INC VIEWS FRONTAL&L ATERAL RADIOLOGI 10001 DAR DODGE C EXAM 2 [facility] CHEST 2 INC INC VIEWS FRONTAL&L ATERAL RADIOLOGI 68267 [facility] D[facility]GE C EXAM 1 [facility] CHEST 2 INC INC VIEWS FRONTAL&L ATERAL THERAPEUT 34436 DEXTER RENTERIA JR IC 1 DWI DWI PROPHYLAC TIC/DX INJECTION SUBQ/IM INJECTION J1040 DEXTER RENTERIA JR 1 DWI DWI METHYLPRE DNISOLONE ACETATE 80 MG RADIOLOGI 86951 [facility] L[facility]ER C EXAM 1 MEDICAL TRAVIS CHEST 2 IMAGING VIEWS ASS FRONTAL&[place] [address] D[facility] D[facility]GE THYROID 1 [facility] STIMULATI INC INC NG HORMONE TSH COLLECTIO 44703 [facility] D[facility] N VENOUS 1 [facility] BLOOD INC INC VENIPUNCT URE IIV 60002 DEXTER GUERRERO VACCINE 1 PRESERV FREE INCREASED AG CONTENT IM ADMINISTR G0008 DEXTER GUERRERO ATION OF 1 INFLUENZA VIRUS VACCINE PHRM Q0513 YOUR YOUR DISPENSIN 1 PHARMACY PHARMACY G FEE Handshake INHALATIO N RX; PER 30 DAYS ADMN SET A7003 YOUR YOUR SM VOL 1 PHARMACY PHARMACY NONFILTR [facility] PNEUMAT NEBULIZR DISPBL ALBUTEROL J7620 YOUR YOUR TO 2.5 1 PHARMACY PHARMACY [facility] IPRATROPI [place] [address] [place] [address] [facility] ABDOMEN & 1 MEDICAL TRAVIS PELVIS IMAGING W/O ASS CONTRAST MATERIAL 3D 66896 [facility] RENDERING 1 MEDICAL TRAVIS IMAGING W/INTERP& [place] [address] D[facility] DODGE THYROID 1 [facility] STIMULATI INC INC NG HORMONE TSH COLLECTIO 22801 DAR DODGE N VENOUS 1 [facility] BLOOD INC INC VENIPUNCT URE NEBULIZER E0570 [facility] ALCANTAR WITH 1 HOME MED HOME MED COMPRESSO EQUIP. L EQUIP. L R NEBULIZER E0570 [facility] ALCANTAR WITH 1 HOME MED HOME MED COMPRESSO EQUIP. L EQUIP. L R NEBULIZER E0570 [facility] ALCANTAR WITH 1 HOME MED HOME MED COMPRESSO [place] [address] DAR DODGE THYROID 1 [facility] STIMULATI INC INC NG HORMONE TSH POTASSIUM 66553 D[facility] DODGE SERUM 1 [facility] PLASMA/WH INC INC OLE BLOOD COLLECTIO 28430 DAR DODGE N VENOUS 1 [facility] BLOOD INC INC VENIPUNCT URE NEBULIZER E0570 [facility] ALCANTAR WITH 1 HOME MED HOME MED COMPRESSO EQUIP. L EQUIP. L R RADIOLOGI 10813 [facility] C EXAM 0 MEDICAL TRAVIS CHEST 2 IMAGING VIEWS ASS FRONTAL&L ATERAL NEBULIZER E0570 [facility] ALCANTAR WITH 0 HOME MED HOME MED COMPRESSO EQUIP. L EQUIP. L R URNLS DIP 17859 DEXTER RENTERIA DWI 0 STICK/TAB LET RGNT NON-AUTO W/O MICRSCP NEBULIZER E0570 [facility] ALCANT[facility] WITH 0 HOME MED HOME MED COMPRESSO EQUIP. L EQUIP. L R ADMN SET A7003 YOUR YOUR SM VOL 0 PHARMACY PHARMACY NONFILTR [facility] PNEUMAT NEBULIZR DISPBL PHRM Q0513 YOUR YOUR DISPENSIN 0 PHARMACY PHARMACY G FEE Handshake INHALATIO N RX; PER 30 DAYS ALBUTEROL J7620 YOUR YOUR TO 2.5 0 PHARMACY PHARMACY [facility] IPRATROPI UM BROM TO 0.5 MG OPHTH 93983 [facility] MEDICAL 0 XM&EVAL COMPRHNSV ESTAB PT 1/> NEBULIZER E0570 [facility] ALCANTAR WITH 0 HOME MED HOME MED [place] [address] [place] [facility] HEAD/BRAI 0 MEDICAL TRAVIS N W/O & IMAGING W/CONTRAS ASS T MATERIAL 3D 71036 [facility] RENDERING 0 [facility] W/INTERP INC INC & POSTPROCE SS SUPERVISI ON THERAPEUT 44251 DEXTER RENTERIA DWI IC 0 PROPHYLAC TIC/DX INJECTION SUBQ/IM BASIC 20268 [facility] METABOLIC 0 [facility] PANEL INC INC CALCIUM TOTAL IIV3 37169 DEXTER RENTERIA DWI VACCINE 0 SPLIT VIRUS 0.5 ML DOSAGE IM USE COLLECTIO 54666 DAR DODGE N VENOUS 0 [facility] BLOOD INC INC VENIPUNCT URE NEBULIZER E0570 [facility] ALCANTAR WITH 0 HOME MED HOME MED COMPRESSO EQUIP. L EQUIP. L R NEBULIZER E0570 [facility] ALCANTAR WITH 0 HOME MED HOME MED COMPRESSO EQUIP. L EQUIP. L R POTASSIUM 80985 [facility] SERUM 0 [facility] PLASMA/WH INC INC OLE BLOOD COLLECTIO 89686 [facility] D[facility] N VENOUS 0 [facility] BLOOD INC INC VENIPUNCT URE COLLECTIO 44030 DEXTER RENTERIA DWI N VENOUS 0 BLOOD VENIPUNCT URE LIPID 37789 COMBINED COMBINED PANEL 0 PHYSICIAN PHYSICIAN S LA S LA BLOOD 72692 COMBINED COMBINED COUNT 0 PHYSICIAN PHYSICIAN COMPLETE S LA S LA AUTO&AUTO DIFRNTL WBC BASIC 00782 COMBINED COMBINED METABOLIC 0 PHYSICIAN PHYSICIAN PANEL S LA S LA CALCIUM TOTAL TRANSFERA 90960 COMBINED COMBINED SE 0 PHYSICIAN PHYSICIAN [place] [address] COMBINED COMBINED THYROID 0 PHYSICIAN PHYSICIAN STIMULATI S LA S LA NG HORMONE TSH NEBULIZER E0570 [facility] ALCANT[facility] WITH 0 HOME MED HOME MED COMPRESSO EQUIP. E[facility]. [facility] LLC NEBULIZER E0570 [facility] LUNDBERGRELL WITH 0 HOME MED HOME MED COMPRESSO EQUIP. EQUIP. R [facility] LLC NEBULIZER E0570 [facility] LUNDBERGRELL WITH 0 HOME MED HOME MED COMPRESSO EQUIP. EQUIP. R [facility] BRNCDILAT 79614 D[facility] D[facility] RSPSE 0 [facility] SPMTRY INC INC PRE&POST- BRNCDILAT ADMN PRESSURIZ 83073 DAR DODGE ED/NONPRE 0 [facility] SSURIZED INC INC INHALATIO N TREATMENT GROUND A0425 [facility] MILEAGE 0 AMBULANCE AMBULANCE [place] [address] D[facility] DODGE TROPONIN 0 [facility] QUANTITAT INC INC CY BLOOD 71168 [facility] COUNT 0 [facility] COMPLETE INC INC AUTO&AUTO DIFRNTL WBC THER 01850 D[facility] DOD[facility] PROPH/DX 0 [facility] NJX IV INC INC PUSH SINGLE/1S T SBST/DRUG AMB A0427 [facility] SERVICE 0 AMBULANCE AMBULANCE ALS SERVICE SERVICE EMERGENCY TRANSPORT LEVEL 1 ECG 57312 DAR CHEN ROUTINE 0 [facility] W/LEAST PROF SERV 12 LDS I&R ONLY COMPREHEN 56732 [facility] SIVE 0 [facility] METABOLIC INC INC PANEL CREATINE 25381 D[facility] DODGE KINASE MB 0 [facility] FRACTION INC INC ONLY CREATINE 10321 [facility] DODGE KINASE 0 [facility] TOTAL INC INC ECG 95405 D[facility] DODGE ROUTINE 0 [facility] ECG INC INC W/LEAST 12 LDS TRCG ONLY W/O I&R RADIOLOGI 95801 [facility] C[facility]ONA 0 MEDICAL FIDENCIO EXAMINATI IMAGING ON CHEST ASSOCIATE SINGLE S VIEW FRONTAL ADMN SET A7003 ORTIZ ALCANTAR SM VOL 0 HOME MED HOME MED NONFILTR EQUIP. EQUIP. PNEUMAT [employer] NEBULIZR DISPBL NEBULIZER E0570 ORTIZ ALCANTAR WITH 0 HOME MED HOME MED COMPRESSO EQUIP. EQUIP. [facility] LLC ADMN SET A7003 YOUR YOUR SM VOL 0 PHARMACY PHARMACY NONFILTR [employer] PNEUMAT NEBULIZR DISPBL PHARM G0333 YOUR YOUR DISPEN 0 PHARMACY PHARMACY FEE INHAL [employer] RX; INITIAL 30-DAY SUPPLY ALBUTEROL J7620 YOUR YOUR TO 2.5 0 PHARMACY PHARMACY [facility] IPRATROPI UM BROM TO 0.5 MG INJECTION J1040 DEXTER RENTERIA, 0 MARIE E MARIE E METHYLPRE DNISOLONE ACETATE 80 MG THERAPEUT 58372 DEXTER RENTERIA, IC 0 MARIE E MARIE E PROPHYLAC TIC/DX INJECTION SUBQ/IM RADEX 87548 [facility] SPINE 9 [facility] LUMBOSACR INC INC AL MINIMUM 4 VIEWS ADMINISTR G0008 DEXTER RENTERIA, ATION OF 9 MARIE E MARIE E INFLUENZA VIRUS VACCINE IIV3 55514 DEXTER RENTERIA, VACCINE 9 MARIE E MARIE E SPLIT VIRUS 0.5 ML DOSAGE IM USE INJECTION J1040 DEXTER RENTERIA, Francisco MARIE E MARIE E METHYLPRE DNISOLONE ACETATE 80 MG THERAPEUT 53112 DEXTER RENTERIA, IC 9 MARIE E MARIE E PROPHYLAC TIC/DX INJECTION SUBQ/IM INJECTION J1040 DEXTER RENTERIA, 9 MARIE E MARIE E METHYLPRE DNISOLONE ACETATE 80 MG INJECTION J1040 DEXTER RENTERIA, 9 MARIE E MARIE E METHYLPRE DNISOLONE ACETATE 80 MG URNLS DIP 81108 DEXTER RENTERIA, 9 MARIE E MARIE E STICK/TAB LET RGNT NON-AUTO W/O MICRSCP SCR G0123 [facility] CYTOPATH 9 [facility] CERV/VAG INC INC [place] [address] COMBINED COMBINED THYROID 9 PHYSICIAN PHYSICIAN STIMULATI S LAB S LAB NG HORMONE TSH TRANSFERA 66829 COMBINED COMBINED SE 9 PHYSICIAN PHYSICIAN ALANINE S LAB S LAB AMINO ALT SGPT COLLECTIO 44734 DEXTER RENTERIA, N VENOUS 9 MARIE E MARIE E BLOOD VENIPUNCT URE BLOOD 77941 DEXTER RENTERIA, OCCULT 9 MARIE E MARIE E PEROXIDAS E ACTV QUAL FECES 1 DETER BASIC 95730 COMBINED COMBINED METABOLIC 9 PHYSICIAN PHYSICIAN PANEL S LAB S LAB CALCIUM TOTAL LIPID 97031 COMBINED COMBINED PANEL 9 PHYSICIAN PHYSICIAN S LAB S LAB BLOOD 73394 COMBINED COMBINED COUNT 9 PHYSICIAN PHYSICIAN COMPLETE S LAB S LAB AUTO&AUTO DIFRNTL WBC ECG 22568 DEXTER RENTERIA, ROUTINE 9 MARIE E MARIE E ECG W/LEAST 12 LDS W/I&R ADMINISTR G0008 DEXTER RENTERIA, ATION OF 8 MARIE E MARIE E INFLUENZA VIRUS VACCINE IIV3 92961 DEXTER RENTERIA, VACCINE 8 MARIE E MARIE E SPLIT VIRUS 0.5 ML DOSAGE IM USE INJECTION J1040 DEXTER RENTERIA, 8 MARIE E MARIE E METHYLPRE DNISOLONE ACETATE 80 MG Encounters Encounter Start End Date Code Location Performer Type Date [facility] DAR - 6 6 [facility] - 6 6 [facility] 23902 DAR 6 6 [facility] VISIT LOW/MODER [facility]VERITY HOSPITAL UNIVERSIT - 6 6 [facility] T OFFICE 05849 [facility] 6 [address] DAR - 6 6 [facility] 35163 DAR 6 6 [facility] VISIT HIGH/URGE NT SEVERITY EMERGENCY [address] [place] [facility] 6 6 [facility] VISIT SERV [facility]AT[facility] SEVERITY& N THREAT FUN OFFICE 03081 D[facility]TER RENTER[facility] JR [facility] 6 6 MARIE DWI T VISIT 15 MINUTES OFFICE [id number] [facility] T VISIT 15 MINUTES [facility]OSP[facility] DAR - 5 5 [facility] 5 5 [facility] 5 [facility] 5 5 [facility] OFF[facility] 84782 DEXTER RENTERIA JR OUTPATIEN 5 5 MARIE DWI T VISIT 15 MINUTES HOSPITAL DAR [facility] 5 5 [facility] 11869 D[facility] RENTERIA JR OUTPATIEN 4 4 DWI DWI T [facility]ISIT 10 MINUTES HOSPITAL DAR - 2 2 [facility] 2 2 [facility] 2 2 [facility] OUTPATIEN [facility] T OFFICE 71735 DEXTER JR DEXTER JR OUTPATIEN 2 2 DWI DWI T VISIT 15 MINUTES HOSPITAL DAR - 1 1 [facility] OUTPATIEN [facility] T OFFICE 73924 DEXTER DWI DEXTER DWI OUTPATIEN 1 1 T VISIT 15 MINUTES HOSPITAL DAR - 1 1 [facility] OUTPATIEN [facility] T OFFICE 28145 DEXTER DWI DEXTER DWI OUTPATIEN 1 1 T VISIT 15 MINUTES OFFICE 88001 DEXTER DWI DEXTER DWI OUTPATIEN 1 1 T VISIT 15 MINUTES HOSPITAL DAR - 1 1 [facility] 1 [facility] OFFICE 43862 DEXTER DWI DEXTER DWI OUTPATIEN 1 1 T VISIT 15 MINUTES [facility] DAR - 0 0 [facility] 85468 DEXTER DWI DEXTER DWI OUTPATIEN 0 0 T VISIT 15 MINUTES HOSPITAL DAR - 0 0 [facility] T OFFICE 61537 DEXTER DWI DEXTER DWI OUTPATIEN 0 0 T VISIT 15 MINUTES HOSPITAL DAR - 0 0 [facility] OUTPATIEN [facility] HOSPITAL DAR - 0 0 [facility] OUTPATIEN [facility] T OFFICE 22830 DEXTER, DEXTER, OUTPATIEN 0 0 MARIE E MARIE E T VISIT 15 MINUTES HOSPITAL DAR - 0 0 [facility] OUTPATIEN [facility] T OFFICE 41713 DEXTER, DEXTER, OUTPATIEN 0 0 MARIE E MARIE E T VISIT 15 MINUTES HOSPITAL DAR - 0 0 [facility] T EMERGENCY 17146 SKYLA TRUONG, DEPT 0 0 EMERGENCY AMINAH S VISIT SERVICES HIGH SEVERITY& ASSOCIATE THREAT S FUN EMERGENCY 42762 DAR 0 0 [facility] T VISIT HIGH/URGE NT SEVERITY OFFICE 29748 DEXTER RENTERIA OUTPATIEN 0 0 MARIE E MARIE E T VISIT 15 MINUTES OFFICE 73113 [facility] RENTER[facility] OUTPATIEN 0 0 MARIE E MARIE E T VISIT 15 MINUTES [facility] DAR - 9 9 [facility] T OFFICE 78630 DEXTER RENTERIA OUTPATIEN 9 9 MARIE E MARIE E T VISIT 15 MINUTES OFFICE 14031 [facility]ENTER[facility] OUTPATIEN 9 9 MARIE E MARIE E T VISIT 15 MINUTES OFFICE 53364 [facility] OUTPATIEN 9 9 MARIE E MARIE E T VISIT 15 MINUTES OFFICE 28037 [facility] OUTPATIEN 9 9 MARIE E MARIE E T VISIT 15 MINUTES OFFICE 79756 DEXTER RENTERIA OUTPATIEN 9 9 MARIE E MARIE E T VISIT 15 MINUTES OFFICE 12639 [place] 9 9 [facility] PATIENT 15 MIN OFFICE 81693 DEXTER RENTERIA OUTPATIEN 9 9 MARIE E MARIE E T VISIT 15 MINUTES OFFICE 91519 DEXETR RENTERIA OUTPATIEN 9 9 MARIE E MARIE E T VISIT 25 MINUTES OFFICE 64609 [facility] OUTPATIEN 9 9 MARIE E MARIE E T VISIT 15 MINUTES OFFICE 41964 [facility]ENTER[facility] OUTPATIEN 9 9 MARIE E MARIE E T VISIT 15 MINUTES OFFICE 19607 [facility] OUTPATIEN 8 8 MARIE E MARIE E T VISIT 15 MINUTES OFFICE 36624 [facility] OUTPATIEN 8 8 MARIE E MARIE E T VISIT 15 MINUTES OFFICE 87682 [facility] OUTPATIEN 8 8 MARIE E MARIE E T VISIT 15 MINUTES OFFICE 15768 [facility] RENTER[facility] OUTPATIEN 8 8 MARIE E MARIE E T VISIT 15 MINUTES OFFICE 92872 DEXTER RENTERIA OUTPATIEN 8 8 MARIE E MARIE E T VISIT 15 MINUTES
--- OUTSIDE RECORDS SUMMARY | 2016-12-05 22:39 | External Medical Summary Rpt ---
Demographics Preferred Language Kiswahili Marital Status Unknown Yazidi Affiliation Unknown Race Unknown Ethnic Group Unknown Author Author , Organization [employer] Address Unknown Phone Unavailable Purpose Continuity of Care Document - through 2016 Immunization No patient found.
== END 2016-12-04 13:08 | disposition short-term general hospital (02) ==
LOC: ER 09:28
PROVIDERS: General Practice
DX: R07.81 Pleurodynia (principal); J44.9 Chronic obstructive pulmonary disease, unspecified; I10 Essential (primary) hypertension; R06.02 Shortness of breath